=== PATIENT | male | born 1950 | race Caucasian/White ===

== ENCOUNTER 2020-01-06 12:37 | Inpatient (IN) | payer OTHER, MEDICARE ==
[2020-01-06] MEDS ORDERED: MORPHINE SULFATE 10 MG/ML INJ IV ONE (13:37)
[2020-01-06] MEDS ORDERED: ONDANSETRON HCL INJ/PF 4 MG/2 ML SDV IV ONE (13:38)
--- NOTE | 2020-01-06 13:38 | ER Document Report ---
ED Medical Screen (RME) - General Chief Complaint: Back Pain Stated Complaint: BACK PAIN Time Seen by Provider: 01/06/20 13:32 Primary Care Provider: ASHWIN FUENTES PA [Primary Care Provider] - Follow up as needed Mode of Arrival: Wheelchair Information source: Patient, Relative Notes: HPI; 69-year-old male past medical history significant for chronic back pain presents to the emergency room with worsening pain that started today. Patient states he is unable to walk secondary to the pain. States pain does radiate down his left leg. History of chronic incontinence since he injured his back 35 years ago. Took his regular pain medications approximately 2 hours ago without relief. Arrived to the emergency room via EMS. PE: Alert and oriented x3. Lungs: Clear to auscultation without rales, rhonchi, wheezes. Heart: Regular rate rhythm without murmurs, rubs, gallops. Unable to do full exam in triage. I have greeted and performed a rapid initial assessment of this patient. A comprehensive ED assessment and evaluation of the patient, analysis of test results and completion of the medical decision making process will be conducted by additional ED providers. I have specifically instructed the patient or family members with the patient to immediately return to any nursing staff should anything change in the patient's condition or with their chief complaint. TRAVEL OUTSIDE OF THE [place] IN LAST 30 DAYS: No Physical Exam - Vital signs Vitals: Temp Pulse Resp BP Pulse Ox 98.5 F 87 16 124/80 98 01/06/20 12:43 01/06/20 12:43 01/06/20 12:43 01/06/20 12:43 01/06/20 12:43 Course - Vital Signs Vital signs: Temp Pulse Resp BP Pulse Ox 98.5 F 87 16 124/80 98 01/06/20 12:43 01/06/20 12:43 01/06/20 12:43 01/06/20 12:43 01/06/20 12:43 Doctor's Discharge - Discharge Referrals: ASHWIN FUENTES PA [Primary Care Provider] - Follow up as needed
[2020-01-06 14:12] LABS: ABSOLUTE BASOPHILS # (AUTO) 0.1 10^3/uL (0.0-0.2); ABSOLUTE EOSINOPHILS # (AUTO) 0.1 10^3/uL (0.0-0.6); ABSOLUTE LYMPHOCYTES (AUTO) 1.4 10^3/uL (0.5-4.7); ABSOLUTE MONOCYTES (AUTO) 0.7 10^3/uL (0.1-1.4); ABSOLUTE NEUT (AUTO) 10.1 10^3/uL (1.7-8.2); BASOPHILS % (AUTO) 0.5 % (0-2); EOSINOPHILS % (AUTO) 0.5 % (0-6); HEMATOCRIT 51.2 % (37.9-51.0); HEMOGLOBIN 16.8 g/dL (13.5-17.0); MEAN CORPUSCULAR HEMOGLOBIN 29.7 pg (27.0-33.4); MEAN CORPUSCULAR HGB CONC 32.7 g/dL (32.0-36.0); MEAN CORPUSCULAR VOLUME 91 fl (80-97); PLATELET COUNT 246 10^3/uL (150-450); RED BLOOD COUNT 5.65 10^6/uL (4.35-5.55); RED CELL DISTRIBUTION WIDTH 16.1 % (11.5-14.0); TOTAL CELLS COUNTED % (AUTO) 100 %; WHITE BLOOD COUNT 12.3 10^3/uL (4.0-10.5)
[2020-01-06 14:41] LABS: ALBUMIN 4.6 g/dL (3.5-5.0); ALKALINE PHOSPHATASE 101 U/L (38-126); ANION GAP 15 (5-19); ASPARTATE AMINO TRANSFERASE 51 U/L (17-59); BILIRUBIN,DIRECT 0.1 mg/dL (0.0-0.4); BILIRUBIN,TOTAL 0.8 mg/dL (0.2-1.3); BLOOD UREA NITROGEN 14 mg/dL (7-20); CALCIUM 9.6 mg/dL (8.4-10.2); CARBON DIOXIDE 24 mmol/L (22-30); CHLORIDE 99 mmol/L (98-107); GLUCOSE 99 mg/dL (75-110); POTASSIUM 4.2 mmol/L (3.6-5.0); TOTAL PROTEIN 7.6 g/dL (6.3-8.2)
[2020-01-06 15:23] LABS: APPEARANCE,URINE CLEAR; BILIRUBIN,URINE NEGATIVE (NEGATIVE); COLOR,URINE YELLOW; GLUCOSE, URINE NEGATIVE (NEGATIVE); KETONES,URINE NEGATIVE (NEGATIVE); LEUKOCYTE ESTERASE,URINE NEGATIVE (NEGATIVE); NITRITE,URINE NEGATIVE (NEGATIVE); PROTEIN,URINE NEGATIVE (NEGATIVE); URINE SPECIFIC GRAVITY 1.016; UROBILINOGEN,URINE NEGATIVE mg/dL (<2.0)
[2020-01-06] MEDS ORDERED: HYDROMORPHONE HCL INJ/PF 2 MG/ML AMPULE IV ONE ×4 (15:25→22:06)
--- NOTE | 2020-01-06 15:47 | RADIOLOGY REPORT (SQ) ---
EXAM DESCRIPTION: CT LUMBAR SPINE WITHOUT IMAGES COMPLETED DATE/TIME: 01/06/2020 3:07 pm REASON FOR STUDY: back pain COMPARISON: None. TECHNIQUE: Axial images acquired through the lumbar spine without intravenous contrast. Images revi ewed with lung, soft tissue and bone windows. Reconstructed coronal and sagittal MPR images reviewed . All images stored on PACS. All CT scanners at this facility use dose modulation, iterative reconstruction, and/or weight based d osing when appropriate to reduce radiation dose to as low as reasonably achievable (ALARA). [facility]: Dose Right [facility]: CareDose [facility]: Dose Right [facility]: Teradose 4D [facility]: PlumTV RADIATION DOSE: mGy. LIMITATIONS: None. FINDINGS: Marked convex right scoliosis with a rotary component. No evidence of acute compression f racture. Multilevel spondylosis and facet arthropathy resulting in moderate spinal stenosis at multi ple levels. No high-grade central stenosis. No obvious acute disc herniation. IMPRESSION: Marked degenerative changes. No acute findings. TECHNICAL DOCUMENTATION: JOB ID: [id number] Quality ID # [id number]: Final reports with documentation of one or more dose reduction techniques (e.g., Au tomated exposure control, adjustment of the mA and/or kV according to patient size, use of iterative reconstruction technique) 2010 [employer]- All Rights Reserved Reading location - IP/workstation name: [email or web address]
[2020-01-06] MEDS: HYDROMORPHONE HCL INJ/PF 2 MG/ML AMPULE IV PRN ×3 (17:55→18:34)
[2020-01-06] MEDS ORDERED: VANCOMYCIN HCL INJ 1000 MG VIAL IV ONE (19:57)
[2020-01-06] MEDS ORDERED: CEFTRIAXONE INJ 1000 MG VIAL IV ONE (19:57)
[2020-01-06] MEDS ORDERED: RINGERS LACTATED IV PRN (19:58)
[2020-01-06] MEDS ORDERED: METRONIDAZOLE 500 MG/NS RTU 500 MG/100 ML RTUPB IV ONE (19:58)
[2020-01-06] MEDS ORDERED: KETOROLAC TROMETHAMINE INJ/PF 30 MG/1 ML SDV IV ONE (20:03)
[2020-01-06] MEDS ORDERED: KETAMINE HCL INJ 500 MG/10 ML VIAL IV ONE (21:35)
--- NOTE | 2020-01-06 21:49 | RADIOLOGY REPORT (SQ) ---
EXAM DESCRIPTION: XR HIP 2 OR MORE VIEWS COMPLETED DATE/TME: 01/06/2020 21:20 CLINICAL HISTORY: 69 years, Male, left hip pain COMPARISON: None. TECHNIQUE: AP view of the pelvis and additional view of the left hip. FINDINGS: Severe arthritic changes in the left hip. The left femoral head is flattened and sclerotic. Severe narrowing of the joint space especially superolaterally. No obvious destructive changes or soft tissue abnormalities. IMPRESSION: Severe arthritic changes in the left hip. Etiology may include congenital, degenerative and erosive arthritis.
--- NOTE | 2020-01-06 22:33 | ER Document Report ---
ED General - General Chief Complaint: Back Pain Stated Complaint: BACK PAIN Time Seen by Provider: 01/06/20 13:32 Mode of Arrival: Wheelchair Notes: 69-year-old male with history of chronic low back pain for decades presents with several days of worsening lower back pain and severe left hip pain. Patient's noticed symptoms gradually worsening over the last several days without any trauma or acute inciting factor. Patient has been ambulating but with severe pain. Patient had testosterone injection in left hip on day of presentation, pain present prior to injection. Patient had episode of urinary incontinence, denies bowel incontinence or urinary retention. Denies any numbness, weakness, drug use, fever, headache or neck pain, abdominal pain TRAVEL OUTSIDE OF THE [place] IN LAST 30 DAYS: No - Related Data Allergies/Adverse Reactions: ampicillin Allergy (Verified 01/06/20 17:44) Past Medical History - General Information source: Patient, Relative - Social History Smoking Status: Never Smoker Frequency of alcohol use: None Drug Abuse: None Family History: Reviewed & Not Pertinent Musculoskeletal Medical History: Reports Hx Arthritis Psychiatric Medical History: Reports: Hx Depression Past Surgical History: Reports: Hx Cholecystectomy, Hx Orthopedic Surgery - back, knee, and shoulder Review of Systems - Review of Systems Notes: REVIEW OF SYSTEMS: CONSTITUTIONAL : Denies fever, chills, or sweats. EENT: Denies recent cold/sinus symptoms, denies throat pain CARDIOVASCULAR: Denies chest pain, NURIA RESPIRATORY: Denies cough, denies shortness of breath. GASTROINTESTINAL: Denies abdominal pain, nausea/vomiting. GENITOURINARY: Denies difficulty urinating, painful urination. MUSCULOSKELETAL: Denies neck pain, back pain. SKIN: Denies rash or skin lesions. HEMATOLOGIC : Denies easy bruising or bleeding. LYMPHATIC: Denies swollen, enlarged glands. NEUROLOGICAL: Denies headache, denies change in gait. PSYCHIATRIC: Denies anxiety or stress or depression. Physical Exam - Vital signs Vitals: Temp Pulse Resp BP Pulse Ox 98.5 F 87 16 124/80 98 01/06/20 12:43 01/06/20 12:43 01/06/20 12:43 01/06/20 12:43 01/06/20 12:43 - Notes Notes: PHYSICAL EXAMINATION: GENERAL: Patient diaphoretic and trembling secondary to severe pain in hip and low back HEAD: Atraumatic, normocephalic. EYES: Pupils equal round and appropriate constriction, sclera anicteric, conj unctiva are normal. ENT: nares patent, moist mucous membranes. NECK/BACK: Normal range of motion, supple without lymphadenopathy, no midline spinal tenderness or deformity, no tenderness to palpation of buttocks LUNGS: Breath sounds clear to auscultation bilaterally and equal. No wheezes rales or rhonchi. HEART: Tachycardic, regular rhythm ABDOMEN: Soft, nontender, no guarding, no masses, no CVAT EXTREMITIES: Patient holding left hip in partial flexion, able to minimally range but with severe pain, DP and radial pulses 2+ bilaterally, 5/5 distal strength and and normal sensation NEUROLOGICAL: Awake, alert, conversing appropriately, moves all extremities spontaneously. PSYCH: Normal mood, normal affect. SKIN: Warm, diaphoretic, no rashes Course - Re-evaluation Re-evalutation: 01/06/20 22:53 Patient with severe pain from atraumatic lower back pain and left hip pain which is also atraumatic. Pain to "left leg" appears to actually be hip pain and this is new for patient, although he says left hip pain has been worsening for a year and is supposed to be having unknown surgery for it has been worse over the past few days. Not consistent with sciatica on my exam. Patient developed fever while in ED. Concern for possible spinal epidural abscess versus left hip septic arthritis versus occult fracture, rule out cord compression, spinal hematoma but less likely. Pain may be iatrogenic as patient had testosterone injection in that area just prior to presenting to the ED. Obtained labs with blood culture lactate and ordered T and L-spine MRI. Unable to order hip MRI as told by graphics edit technician that only able to MRI to body sections at once. Canceled hip MRI and consulted Dr. Bush for likely hip arthrocentesis. Given empiric antibiotics pending MRI. Patient required multiple doses of IV pain medication, patient tolerated these without any sedation or respiratory depression. Patient is not opioid brian and takes regular p.o. opioids for chronic low back pain. Will continue to monitor pending results of MRI. 01/06/20 22:56 No emergent findings on spinal MRI, pain still present but somewhat better controlled now. With better pain control patient's tachycardia has improved. Discussed patient with Dr. Elizalde who has accepted patient to medical floor. - Vital Signs Vital signs: Temp Pulse Resp BP Pulse Ox 101.8 F H 138 H 19 160/110 H 91 L 01/06/20 18:50 01/06/20 18:50 01/07/20 01:31 01/07/20 01:31 01/07/20 01:31 - Laboratory Result Diagrams: 01/06/20 13:45 01/06/20 13:45 Laboratory results interpreted by me: 01/06/20 01/06/20 01/06/20 13:45 13:45 13:45 WBC 12.3 H RBC 5.65 H Hct 51.2 H RDW 16.1 H Lymph % (Auto) 11.0 L Absolute Neuts (auto) 10.1 H Seg Neutrophils % 82.0 H Creatinine 1.32 H Est GFR (MDRD) Non-Af 54 L C-Reactive Protein 35.4 H - EKG Interpretation by Me Additional EKG results interpreted by me: 01/07/20 01:54 Sinus tachycardia, no significant ST elevations or depressions, no significant T wave abnormalities Discharge - Discharge Clinical Impression: Left hip pain Sepsis Qualifiers: Sepsis type: sepsis due to unspecified organism Sepsis acute organ dysfunction status: with acute organ dysfunction Severe sepsis acute organ dysfunction type: acute renal failure Acute renal failure type: unspecified Severe sepsis shock status: without septic shock Qualified Code(s): A41.9 - Sepsis, unspecified organism Back pain Qualifiers: Back pain location: low back pain Chronicity: acute Back pain laterality: midline Sciatica presence: unspecified whether sciatica present Qualified Code(s): M54.5 - Low back pain Disposition: ADMITTED INPATIENT Admitting Provider: Fide (Hospitalist) Unit Admitted: Medical Floor
--- NOTE | 2020-01-06 23:28 | RADIOLOGY REPORT (SQ) ---
EXAM DESCRIPTION: MRI THORACIC SPINE COMBO [employer]: MR THORACIC SPINE WITHOUT THEN WITH IV CONTRAST CLINICAL HISTORY: 69 years Male back pain fever; left greater than right, radiating into left leg. Worse today after injection TECHNIQUE: MR thoracic spine with and without contrast COMPARISON: None FINDINGS: Motion artifact somewhat degrades the quality of this exam. No focal subluxation. C7-T1: Right paramedian disc herniation, incompletely visualized, abutting right anterior margin of the cord. Disc desiccation and mild endplate irregularity seen at numerous levels throughout the thoracic spine. T6-T7: Small midline disc protrusion, without stenosis. T10-T11: Mild disc bulging eccentric to the right. Right facet arthropathy. Moderate right foraminal stenosis. No central or left foraminal stenosis. T12-L1: Posterior disc bulging eccentric to the left left foraminal involvement. Moderate left foraminal stenosis. No acute bone marrow edema or perivertebral soft tissue edema. No enhancing lesion. No acute cord edema or syrinx. IMPRESSION: 1. No acute findings. No epidural abscess. 2. Mild degenerative changes as described, with foraminal stenosis at several levels, but no significant central canal stenosis. Please correlate with distribution of clinical symptoms.
--- NOTE | 2020-01-06 23:46 | RADIOLOGY REPORT (SQ) ---
EXAM DESCRIPTION: MR LUMBAR SPINE WITHOUT THEN WITH IV CONTRAST COMPLETED DATE/TME: 01/06/2020 23:11 CLINICAL HISTORY: 69 years, Male, back pain and fever. Back pain radiating to the left leg. Reported remote back injury. COMPARISON: CT from earlier today TECHNIQUE: Pre and postcontrast enhanced multiplanar multiecho imaging of the lumbar spine was performed utilizing 15 mL ProHance intravenously. Images stored on PACS. LIMITATIONS: Motion artifact. FINDINGS: There is no evidence of lumbar spine fracture or subluxation. There is a moderate lumbar dextroscoliosis measuring approximately 40 degrees on this examination. No definite abnormal enhancement is seen allowing for rather extensive motion artifact. There is no bone marrow edema. There is a small amount of fluid within the leftward aspect of the L2-L3 disc space for instance on sagittal STIR image 14 and coronal T2 image 8, without associated enhancement or adjacent edema. No abnormal fluid collections are otherwise seen within the disc spaces. Conus medullaris is at the T12-L1 level and appears grossly within normal limits. There is an incidental, 8 mm cyst upper pole left kidney. There is multilevel disc desiccation. At L1-L2, there is disc space loss on the left. There is broad-based disc bulge with marginal osteophyte formation, eccentrically greater on the left. There is also mild facet arthropathy, greater on the left. There is no central spinal canal stenosis, however moderate left lateral recess stenosis and severe left neural foraminal stenosis are identified. At L2-L3, there is disc space loss on the left. Broad-based disc bulge and marginal osteophyte formation are identified, again eccentrically greater on the left. There is also moderate facet arthropathy with ligamentum flavum hypertrophy, slightly greater on the left. There is moderate spinal canal stenosis and there is bilateral lateral recess stenosis, left greater than right. Additionally, there is severe left neural foraminal stenosis. At L3-L4, there is moderate disc space narrowing. Broad-based disc bulge and marginal osteophyte formation are noted. There is also at least moderate bilateral facet arthropathy. The above produce at least moderate spinal canal stenosis and moderate to severe bilateral neural foraminal stenosis. Detailed evaluation at this level is rather limited by motion. At L4-L5, there is disc space loss on the right. Broad-based disc bulge and marginal osteophyte formation are noted, greater on the right. There is also at least moderate facet arthropathy on the right. The above produce at least moderate right lateral recess stenosis and severe right neural foraminal stenosis. There is also mild left neural foraminal stenosis. Detailed evaluation is limited by motion artifact at this level. At L5-S1, there is a broad-based disc bulge with a shallow superimposed central disc protrusion and central annular tear. There is also [id number] facet arthropathy, greater on the right. There is mild central spinal canal stenosis at this level and there is also moderate bilateral lateral recess stenosis. IMPRESSION: 1. No evidence of abscess. There is a small amount of fluid within the leftward aspect of the L2-L3 disc space, likely due to reactive degenerative disease. No compelling evidence of spondylodiscitis is seen. 2. Moderate to advanced multilevel discogenic changes and facet arthropathy with associated spinal canal stenosis and neural foraminal stenosis as detailed above. Degenerative changes are exacerbated by moderately severe lumbar scoliosis. Please see the above report for details at each level. copyright 2010 [employer]- All Rights Reserved
--- NOTE | 2020-01-07 00:35 | EKG REPORT ---
SEVERITY:- ABNORMAL ECG - ARTIFACTS SINUS TACHYCARDIA MULTIPLE ATRIAL PREMATURE COMPLEXES PROBABLE LEFT ATRIAL ABNORMALITY BORDERLINE LEFT AXIS DEVIATION BORDERLINE ST ELEVATION, INFERIOR LEADS : Confirmed by: Haley Copeland 07-Jan-2020 00:34:13
[2020-01-07] MEDS ORDERED: ACETAMINOPHEN 325 MG TABLET PO PRN (01:11)
[2020-01-07] MEDS ORDERED: HYDROMORPHONE HCL INJ/PF 2 MG/ML AMPULE IV PRN ×7 (01:11→07:09)
[2020-01-07] MEDS ORDERED: ONDANSETRON 4 MG TAB.RAPDIS PO PRN (01:11)
--- NOTE | 2020-01-07 01:46 | PDOC H&P ---
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 Per the patient and his , there is no history of trauma. Patient had joint injections at his pain management physician office approximately 1 week ago including a steroid injection which they stated helped the patient's hip pain temporarily. Patient also had a testosterone shot in the superficial left hip on day of admission though he and his state this did not coincide with worsening pain as his pain was already becoming severe. Patient's states that he had a tooth pulled a few days prior to admission but the patient has not been complaining of pain in his mouth. Potential patient seeded his joint when he became briefly bacteremic during dental procedure. MRI of the thoracic and lumbar spine did not show any acute findings. MRI of the left hip was refused to be done by radiology department until tomorrow. X-ray of the left hip did not show any acute findings, only severe chronic joint degeneration. Patient's states patient has never been evaluated for inflammatory arthritis. Serologies ordered. Patient started on vancomycin/cefepime. Dr. Bush orthopedics consulted and he will consider tapping the patient's left hip for fluid liban rrow. Patient had a fever of 101.8 in the ED but no fevers prior to admission according to . Per , patient takes oxycodone and OxyContin at home. They do not know the dosages but will try to get them to us in the morning. Past Medical History Musculoskeltal Medical History: Reports: Arthritis Psychiatric Medical History: Reports: Depression Infectious Medical History: Reports: Other Infectious History Note: History of meningitis after back surgery Past Surgical History Past Surgical History: Reports: Cholecystectomy, Orthopedic Surgery - back, knee, and shoulder Social History Information Source: Patient, Relative, Emergency Med Personnel Lives with: Family Smoking Status: Never Smoker Frequency of Alcohol Use: None Hx Recreational Drug Use: No - Advance Directive Resuscitation Status: Full Code Surrogate healthcare decision maker:: Admitting diagnosis: Septic arthritis All aspects of code status discussed with patient/POA including cardioversion, chest compressions, and intubation and the patient/POA indicated they wish to be full code MPOA is designated as: DaughterNaheed Time spent: Greater than 16 minutes Family History Family History: Reviewed & Not Pertinent Parental Family History Reviewed: Yes Children Family History Reviewed: Yes Sibling(s) Family History Reviewed.: Yes Medication/Allergy Allergies/Adverse Reactions: ampicillin Allergy (Verified 01/06/20 17:44) Review of Systems All systems: reviewed and no additional remarkable complaints except as stated - Per HPI otherwise negative Physical Exam Vital Signs: Temp Pulse Resp BP Pulse Ox 101.8 F H 138 H 20 162/106 H 90 L 01/06/20 18:50 01/06/20 18:50 01/06/20 19:46 01/06/20 19:46 01/06/20 19:46 Intake & Output 01/05/20 01/06/20 01/07/20 06:59 06:59 06:59 Intake Total 100 Balance 100 Weight 84 kg Exam: General appearance: PRESENT: no acute distress, well-developed, well-nourished, uncomfortable appearing elderly white male Head exam: PRESENT: atraumatic, normocephalic Eye exam: PRESENT: conjunctiva pink. ABSENT: scleral icterus Mouth exam: PRESENT: moist Respiratory exam: PRESENT: clear to auscultation johanna. ABSENT: rales, rhonchi, wheezes Cardiovascular exam: PRESENT: RRR. ABSENT: diastolic murmur, rubs, systolic murmur GI/Abdominal exam: PRESENT: normal bowel sounds, soft. ABSENT: distended, guarding, mass, organolmegaly, rebound, tenderness Neurological exam: PRESENT: alert, awake, oriented to person, oriented to place, oriented to time, oriented to situation Psychiatric exam: PRESENT: appropriate affect, normal mood Skin exam: PRESENT: dry, intact, warm Musculoskeletal: Severe lateral left hip tenderness with approximately 5 cm area of superficial pitting firm edema Results Laboratory Results: 01/06/20 13:45 01/06/20 13:45 01/06/20 01/06/20 01/06/20 13:45 13:45 13:45 WBC 12.3 H RBC 5.65 H Hgb 16.8 Hct 51.2 H MCV 91 MCH 29.7 MCHC 32.7 RDW 16.1 H Plt Count 246 Seg Neutrophils % 82.0 H Sodium 137.5 Potassium 4.2 Chloride 99 Carbon Dioxide 24 Anion Gap 15 BUN 14 Creatinine 1.32 H Est GFR ( Amer) > 60 Glucose 99 Lactic Acid Calcium 9.6 Total Bilirubin 0.8 AST 51 Alkaline Phosphatase 101 C-Reactive Protein 35.4 H Total Protein 7.6 Albumin 4.6 Urine Color Urine Appearance Urine pH Ur Specific [place] Urine Protein Urine Glucose (UA) Urine Ketones Urine Blood Urine Nitrite Ur Leukocyte Esterase Urine WBC (Auto) Urine RBC (Auto) 01/06/20 01/06/20 14:48 20:30 WBC RBC Hgb Hct MCV MCH MCHC RDW Plt Count Seg Neutrophils % Sodium Potassium Chloride Carbon Dioxide Anion Gap BUN Creatinine Est GFR ( Amer) Glucose Lactic Acid 2.0 Calcium Total Bilirubin AST Alkaline Phosphatase C-Reactive Protein Total Protein Albumin Urine Color YELLOW Urine Appearance CLEAR Urine pH 5.0 Ur Specific [place] 1.016 Urine Protein NEGATIVE Urine Glucose (UA) NEGATIVE Urine Ketones NEGATIVE Urine Blood NEGATIVE Urine Nitrite NEGATIVE Ur Leukocyte Esterase NEGATIVE Urine WBC (Auto) 0 Urine RBC (Auto) 1 Impressions: Lumbar Spine CT 01/06/20 13:35 IMPRESSION: Marked degenerative changes. No acute findings. Thoracic Spine MRI 01/06/20 20:25 IMPRESSION: 1. No acute findings. No epidural abscess. 2. Mild degenerative changes as described, with foraminal stenosis at several levels, but no significant central canal stenosis. Please correlate with distribution of clinical symptoms. Lumbar Spine MRI 01/06/20 20:26 IMPRESSION: 1. No evidence of abscess. There is a small amount of fluid within the leftward aspect of the L2-L3 disc space, likely due to reactive degenerative disease. No compelling evidence of spondylodiscitis is seen. 2. Moderate to advanced multilevel discogenic changes and facet arthropathy with associated spinal canal stenosis and neural foraminal stenosis as detailed above. Degenerative changes are exacerbated by moderately severe lumbar scoliosis. Please see the above report for details at each level. copyright 2011 [email or web address]- All Rights Reserved Hip X-Ray 01/06/20 20:47 IMPRESSION: Severe arthritic changes in the left hip. Etiology may include congenital, degenerative and erosive arthritis. Assessment and Plan - Diagnosis (1) Septic arthritis of hip Qualifiers: Septic arthritis organism: due to unspecified organism Laterality: left Qualified Code(s): M00.9 - Pyogenic arthritis, unspecified Is this a current diagnosis for this admission?: Yes Plan: Unclear source of infection, possibly seeding from recent dental procedure, tooth pulled MRI left hip pending MRI of thoracic and lumbar spine did not show acute findings Vancomycin/cefepime Orthopedics consulted for left hip arthrocentesis, follow-up culture Blood culture Pain management, patient has extremely high tolerance for narcotics due to chronic use PT/OT (2) Sepsis Qualifiers: Sepsis type: sepsis due to unspecified organism Sepsis acute organ dysfunction status: with acute organ dysfunction Severe sepsis acute organ dysfunction type: acute renal failure Acute renal failure type: unspecified Severe sepsis shock status: without septic shock Qualified Code(s): A41.9 - Sepsis, unspecified organism; R65.20 - Severe sepsis without septic shock; N17.9 - Acute kidney failure, unspecified Is this a current diagnosis for this admission?: Yes Plan: Due to left hip septic arthritis Antibiotics, cultures, source control with drainage IV fluids (3) ROXANA (acute kidney injury) Is this a current diagnosis for this admission?: Yes Plan: Likely due to sepsis due to infected left hip IV fluids trend BMP (4) Chronic pain syndrome Is this a current diagnosis for this admission?: Yes Plan: Takes oxycodone and OxyContin at home, patient and unsure of the dosage Follows with pain management outpatient (5) Narcotic dependency, continuous Is this a current diagnosis for this admission?: Yes (6) History of meningitis Is this a current diagnosis for this admission?: Yes Plan: 30 years ago patient developed meningitis after spine surgery, has had significant memory problems since then (7) Memory deficit Is this a current diagnosis for this admission?: Yes - Time Time Spent with patient: 35 or more minutes Medications reviewed and adjusted accordingly: Yes Anticipated Discharge Disposition: [facility] Facility Anticipated Discharge Timeframe: within 72 hours - Inpatient Certification Based on my medical assessment, after consideration of the patient's comorbidities, presenting symptoms, or acuity I expect that the services needed warrant INPATIENT care.: Yes I certify that my determination is in accordance with my understanding of Medicare's requirements for reasonable and necessary INPATIENT services [42 CFR 412.3e].: Yes Medical Necessity: Significant Comorbidiites Make Outpatient Treatment Too Risky , Need Close Monitoring Due to Risk of Patient Decompensation, Need For IV Fluids, Need for IV Antibiotics, Need for Surgery, Risk of Complication if Not Cared For in Hospital, Risk of Diagnosis Which Will Require Inpatient Eval/Care/Monitoring
[2020-01-07 01:48] LABS: HEMATOCRIT 48.3 % (37.9-51.0); HEMOGLOBIN 15.7 g/dL (13.5-17.0); MEAN CORPUSCULAR HEMOGLOBIN 29.3 pg (27.0-33.4); MEAN CORPUSCULAR HGB CONC 32.4 g/dL (32.0-36.0); MEAN CORPUSCULAR VOLUME 90 fl (80-97); PLATELET COUNT 210 10^3/uL (150-450); RED BLOOD COUNT 5.34 10^6/uL (4.35-5.55); RED CELL DISTRIBUTION WIDTH 16.6 % (11.5-14.0); WHITE BLOOD COUNT 19.6 10^3/uL (4.0-10.5)
[2020-01-07 02:11] LABS: ABSOLUTE LYMPHOCYTES (AUTO) 0.6 10^3/uL (0.5-4.7); ABSOLUTE MONOCYTES (AUTO) 0.8 10^3/uL (0.1-1.4); ABSOLUTE NEUT (AUTO) 18.2 10^3/uL (1.7-8.2); BASOPHILS % (AUTO) 0.3 % (0-2); LYMPHOCYTES % (AUTO) 2.9 % (13-45); MONOCYTES % (AUTO) 4.1 % (3-13); SEGMENTED NEUTROPHILS % (AUTO) 92.7 % (42-78); TOTAL CELLS COUNTED % (AUTO) 100 %
[2020-01-07 02:17] LABS: ABSOLUTE MONOCYTES # (MANUAL) 1.2 10^3/uL (0.1-1.4); BASOPHILS % (MANUAL) 0 % (0-2); EOSINOPHILS % (MANUAL) 0 % (0-6); LYMPHOCYTES % (MANUAL) 5 % (13-45); MONOCYTES % (MANUAL) 6 % (3-13); SEGMENTED NEUTROPHILS % (MAN) 89 % (42-78); TOTAL CELLS COUNTED 100
[2020-01-07 02:18] LABS: ANISOCYTOSIS SLIGHT
[2020-01-07 02:19] LABS: PLATELET COMMENT ADEQUATE; POIKILOCYTOSIS SLIGHT
[2020-01-07] MEDS: RINGERS SOLUTION,LACTATED 1,000 ML IV PRN ×2 (02:53→14:20)
[2020-01-07] MEDS ORDERED: CEFEPIME 2 GM/D5W RTU 2 GM/50 ML RTUPB IV ONE (05:45)
[2020-01-07] MEDS: HEPARIN SOD (PORCINE) 5,000 UNIT/ML 1 ML VIAL SUBCUT SCH ×3 (05:45→23:14)
[2020-01-07] MEDS ORDERED: CEFEPIME 2 GM/D5W RTU 2 GM/50 ML RTUPB IV SCH (06:00)
[2020-01-07 08:08] LABS: ANION GAP 14 (5-19); BLOOD UREA NITROGEN 23 mg/dL (7-20); CARBON DIOXIDE 21 mmol/L (22-30); CHLORIDE 103 mmol/L (98-107); GLUCOSE 109 mg/dL (75-110)
[2020-01-07] MEDS ORDERED: SUCCINYLCHOLINE CHLORIDE INJ 200 MG/10 ML VIAL ONE (08:09)
[2020-01-07] MEDS ORDERED: ESMOLOL HCL INJ/PF 100 MG/10 ML SDV IV ONE (08:09)
[2020-01-07] MEDS ORDERED: METOPROLOL TARTRATE PF/INJ 5 MG/5 ML SDV IV ONE (08:09)
[2020-01-07] MEDS ORDERED: KETOROLAC TROMETHAMINE 60 MG/2 ML SDV ONE (08:09)
[2020-01-07] MEDS ORDERED: VANCOMYCIN HCL INJ 1000 MG VIAL IV SCH (10:00)
[2020-01-07] MEDS: VANCOMYCIN HCL 1,000 MG in DEXTROSE 5%-WATER 250 ML IV SCH ×2 (10:21→23:14)
[2020-01-07] MEDS: DOCUSATE SODIUM 100 MG CAPSULE PO SCH ×2 (10:25→10:35)
[2020-01-07] MEDS ORDERED: FENTANYL CITRATE INJ/PF 100 MCG/2 ML AMPUL IV ONE (10:42)
[2020-01-07] MEDS ORDERED: METOPROLOL TARTRATE PF/INJ 5 MG/5 ML SDV IV PRN (10:42)
[2020-01-07] MEDS: CEFEPIME HCL 2 GM in DEXTROSE 5%-WATER 50 ML IV SCH ×2 (14:11→23:14)
--- NOTE | 2020-01-07 14:36 | PDOC CONSULTATION ---
Consultation Consult Date: 01/07/20 Provider Consulted: KORY CRESPO JR History of Present Illness Admission Date/PCP: 01/07/20 00:42 CONNOR MISTRY PA-C Patient complains of: left hip pain History of Present Illness: AUGUST CORBIN is a 69 year old male who presents with severe left hip pain, sepsis, positive blood cultures as of my consultation. He has a complicated history including prior spine surgery with associated meningitis with memory loss chronic back pain hip pain and narcotic dependency. Over the last few months he has been seeing Dr. Alvarez in [facility] for potential left hip replacement due to ongoing left hip pain. I am unsure as to whether this was a previous diagnosis of avascular necrosis or hip arthritis that is progressed to avascular necrosis on his encounter today. X-rays reviewed from his current encounter do demonstrate what appears to be collapse of the femoral head. This could be acute and in association with infection, or associated with his prior hip pain that he has had problems with her last few months and was seeking potential hip replacement. They explained that over the last week he has had progressively increased left hip pain to the point that he cannot ambulate. There is some history of injections into the left thigh but it is unclear as to whether or not these were actually intra-articular hip injections or intramuscular injections including a recent testosterone injection. Pain is described as severe, 8 out of 10, worse with any motion up to 10 out of 10, preventing him from ambulation, improved with rest and pain medication, localized to the lateral thigh and into the groin, nonradiating. Past Medical History Musculoskeltal Medical History: Reports: Arthritis Psychiatric Medical History: Reports: Depression Infectious Medical History: Reports: Other Past Surgical History Past Surgical History: Reports: Cholecystectomy, Orthopedic Surgery - back, knee, and shoulder Social History Lives with: Family Smoking Status: Never Smoker Frequency of Alcohol Use: None Hx Recreational Drug Use: No Drugs: None - Advance Directive Resuscitation Status: Full Code Family History Family History: Reviewed & Not Pertinent Parental Family History Reviewed: No Children Family History Reviewed: NA Sibling(s) Family History Reviewed.: NA Medication/Allergy Home Medications: Buspirone HCl [Buspar 10 mg Tablet] 10 mg PO BID 01/07/20 Dextromethorphan HBr/Quinidine [Nuedexta 20-10 mg Capsule] 1 cap PO DAILY 01/07/20 Duloxetine HCl [Cymbalta] 60 mg PO BID 01/07/20 Oxycodone HCl [Oxycontin] 20 mg PO Q12 01/07/20 Oxycodone HCl/Acetaminophen [Percocet 10-325 mg Tablet] 1 tab PO Q6 01/07/20 Topiramate [Topamax 25 mg Tablet] 25 mg PO Q8 01/07/20 Trazodone HCl [Desyrel 50 mg Tablet] 50 mg PO QHS 01/07/20 Zolpidem Tartrate [Ambien 5 mg Tablet] 5 mg PO QHS 01/07/20 Allergies/Adverse Reactions: ampicillin Allergy (Verified 01/06/20 17:44) Review of Systems Review of Systems: Constitutional: ABSENT: anorexia, chills, night sweats Cardiovascular: ABSENT: chest pain Respiratory: ABSENT: dyspnea Gastrointestinal: ABSENT: vomiting Genitourinary: ABSENT: dysuria Integumentary: ABSENT: rash Neurological: ABSENT: confusion, memory loss, numbness Psychiatric: ABSENT: hallucinations Hematologic/Lymphatic: ABSENT: easy bleeding Physical Exam Vital Signs: Temp Pulse Resp BP Pulse Ox 97.8 F 120 H 20 143/90 H 93 01/07/20 03:52 01/07/20 03:52 01/07/20 03:52 01/07/20 03:52 01/07/20 03:52 Intake & Output 01/06/20 01/07/20 01/08/20 06:59 06:59 06:59 Intake Total 200 2570 Output Total 110 150 Balance 90 2420 Weight 84.8 kg Physical Exam: General appearance: PRESENT: no acute distress, cooperative, well-nourished Head exam: PRESENT: atraumatic, normocephalic Eye exam: PRESENT: EOMI Ear exam: PRESENT: normal external ear exam Mouth exam: PRESENT: neck supple Neck exam: ABSENT: tracheal deviation Respiratory exam: PRESENT: symmetrical, unlabored. ABSENT: accessory muscle use, wheezes Pulses: PRESENT: normal radial pulses, normal dorsalis pedis pulse Vascular exam: PRESENT: normal capillary refill GI/Abdominal exam: ABSENT: distended, firm Extremities exam: PRESENT: full ROM of bilateral shoulders, elbows wrists, knees, hips and ankles without pain Musculoskeletal exam: PRESENT: full ROM, normal inspection of all 4 extremities aside from that noted below. Neurological exam: PRESENT: alert, awake, oriented to person, oriented to place, oriented to time Psychiatric exam: PRESENT: appropriate affect. ABSENT: agitated Focused psych exam: ABSENT: catatonic Skin exam: PRESENT: intact. ABSENT: dry All as above aside from that noted in the HPI and the following: Left lower extremity -Pulses 2+ distally -Compartments soft -Sensation grossly intact to L3-4-5 S1 -Motor grossly intact to EHL TA gastroc and quad , Patient has a flexed hip posture with severe pain to any attempted range of motion including logroll. There is no overt swelling or erythema of the left hip. There is tenderness to palpation laterally and into the anterior lateral musculature as well as into the groin. Results Laboratory Results: 01/07/20 01:30 01/07/20 06:44 01/06/20 01/06/20 01/06/20 13:45 13:45 13:45 WBC 12.3 H RBC 5.65 H Hgb 16.8 Hct 51.2 H MCV 91 MCH 29.7 MCHC 32.7 RDW 16.1 H Plt Count 246 Seg Neutrophils % 82.0 H Sodium 137.5 Potassium 4.2 Chloride 99 Carbon Dioxide 24 Anion Gap 15 BUN 14 Creatinine 1.32 H Est GFR ( Amer) > 60 Glucose 99 Lactic Acid Calcium 9.6 Total Bilirubin 0.8 AST 51 Alkaline Phosphatase 101 C-Reactive Protein 35.4 H Total Protein 7.6 Albumin 4.6 Urine Color Urine Appearance Urine pH Ur Specific [place] Urine Protein Urine Glucose (UA) Urine Ketones Urine Blood Urine Nitrite Ur Leukocyte Esterase Urine WBC (Auto) Urine RBC (Auto) 01/06/20 01/06/20 01/07/20 14:48 20:30 01:30 WBC 19.6 H RBC 5.34 Hgb 15.7 Hct 48.3 MCV 90 MCH 29.3 MCHC 32.4 RDW 16.6 H Plt Count 210 Seg Neutrophils % 92.7 H Sodium Potassium Chloride Carbon Dioxide Anion Gap BUN Creatinine Est GFR ( Amer) Glucose Lactic Acid 2.0 Calcium Total Bilirubin AST Alkaline Phosphatase C-Reactive Protein Total Protein Albumin Urine Color YELLOW Urine Appearance CLEAR Urine pH 5.0 Ur Specific [place] 1.016 Urine Protein NEGATIVE Urine Glucose (UA) NEGATIVE Urine Ketones NEGATIVE Urine Blood NEGATIVE Urine Nitrite NEGATIVE Ur Leukocyte Esterase NEGATIVE Urine WBC (Auto) 0 Urine RBC (Auto) 1 01/07/20 06:44 WBC RBC Hgb Hct MCV MCH MCHC RDW Plt Count Seg Neutrophils % Sodium 138.2 Potassium 4.0 Chloride 103 Carbon Dioxide 21 L Anion Gap 14 BUN 23 H Creatinine 1.31 H Est GFR ( Amer) > 60 Glucose 109 Lactic Acid Calcium 9.0 Total Bilirubin AST Alkaline Phosphatase C-Reactive Protein Total Protein Albumin Urine Color Urine Appearance Urine pH Ur Specific [place] Urine Protein Urine Glucose (UA) Urine Ketones Urine Blood Urine Nitrite Ur Leukocyte Esterase Urine WBC (Auto) Urine RBC (Auto) 01/06/20 20:38 Blood Blood Culture (PCR) - Final Strep Agalactiae - (Group B) Impressions: Lumbar Spine CT 01/06/20 13:35 IMPRESSION: Marked degenerative changes. No acute findings. Thoracic Spine MRI 01/06/20 20:25 IMPRESSION: 1. No acute findings. No epidural abscess. 2. Mild degenerative changes as described, with foraminal stenosis at several levels, but no significant central canal stenosis. Please correlate with distribution of clinical symptoms. Lumbar Spine MRI 01/06/20 20:26 IMPRESSION: 1. No evidence of abscess. There is a small amount of fluid within the leftward aspect of the L2-L3 disc space, likely due to reactive degenerative disease. No compelling evidence of spondylodiscitis is seen. 2. Moderate to advanced multilevel discogenic changes and facet arthropathy with associated spinal canal stenosis and neural foraminal stenosis as detailed above. Degenerative changes are exacerbated by moderately severe lumbar scoliosis. Please see the above report for details at each level. copyright 2010 [email or web address]- All Rights Reserved Hip X-Ray 01/06/20 20:47 IMPRESSION: Severe arthritic changes in the left hip. Etiology may include congenital, degenerative and erosive arthritis. Assessment & Plan - Diagnosis (1) Avascular necrosis of bone of left hip Is this a current diagnosis for this admission?: Yes Plan: On x-ray the patient has avascular necrosis of the left hip and his exam is consistent with intra-articular hip pathology. The question is whether or not this is an acute change associated with potential development of intra-articular septic arthritis. His symptoms may be consistent with an exacerbation of his avascular necrosis and have nothing to do with his septicemia. I would suggest a intra-articular aspiration to evaluate the fluid for potential septic arthritis If septic arthritis is present the patient will need an I&D I will follow the results of the aspiration. MRI of the left hip may also be beneficial Encourage out of bed and activity as tolerated Continue any potential evaluation for further source in the meantime and continue antibiotics per hospitalist care.
--- NOTE | 2020-01-07 15:35 | RADIOLOGY REPORT (SQ) ---
EXAM DESCRIPTION: INJECT/ASPIR HIP/SHLDR/KNEE; FLUORO/NEEDLE PLACEMENT IMAGES COMPLETED DATE/TIME: 01/07/2020 3:13 pm REASON FOR STUDY: LEFT HIP ASPIRATION FOR PAIN AND INFECTION COMPARISON: None. FLUOROSCOPY TIME: 14 seconds of fluoroscopy was used. 1 images saved to PACS. LIMITATIONS: None. PROCEDURE: SITE OF ASPIRATION AND INJECTION: Left hip MEDICATION TYPE AND DOSE: 4 ML Sensorcaine was instilled into the joint following aspiration. Using local anesthesia and sterile technique with fluoroscopic guidance, the needle was advanced into the joint. Loss of resistance as the entered the joint capsule confirming needle placement. 6 mL b loody purulent fluid was aspirated from the left hip joint. 4 mL Sensorcaine instilled into the join t for pain relief the needle was removed. There were no immediate complications. IMPRESSION: DIAGNOSTIC ASPIRATION OF THE LEFT HIP JOINT ABOVE. COMMENT: Patient medication list reviewed: No. Quality ID [id number]: Final reports for procedures using fluoroscopy that document radiation exposure kelvin rhona, or exposure time and number of fluorographic images (if radiation exposure indices are not avail able) TECHNICAL DOCUMENTATION: JOB ID: [id number] 2010 [employer]- All Rights Reserved Reading location - IP/workstation name: [email or web address] [id number]
--- NOTE | 2020-01-07 15:35 | RADIOLOGY REPORT (SQ) ---
EXAM DESCRIPTION: INJECT/ASPIR HIP/SHLDR/KNEE; FLUORO/NEEDLE PLACEMENT IMAGES COMPLETED DATE/TIME: 01/07/2020 3:13 pm REASON FOR STUDY: LEFT HIP ASPIRATION FOR PAIN AND INFECTION COMPARISON: None. FLUOROSCOPY TIME: 14 seconds of fluoroscopy was used. 1 images saved to PACS. LIMITATIONS: None. PROCEDURE: SITE OF ASPIRATION AND INJECTION: Left hip MEDICATION TYPE AND DOSE: 4 ML Sensorcaine was instilled into the joint following aspiration. Using local anesthesia and sterile technique with fluoroscopic guidance, the needle was advanced into the joint. Loss of resistance as the entered the joint capsule confirming needle placement. 6 mL b loody purulent fluid was aspirated from the left hip joint. 4 mL Sensorcaine instilled into the join t for pain relief the needle was removed. There were no immediate complications. IMPRESSION: DIAGNOSTIC ASPIRATION OF THE LEFT HIP JOINT ABOVE. COMMENT: Patient medication list reviewed: No. Quality ID 145: Final reports for procedures using fluoroscopy that document radiation exposure kelvin rhona, or exposure time and number of fluorographic images (if radiation exposure indices are not avail able) TECHNICAL DOCUMENTATION: JOB ID: [id number] 2010 [email or web address]- All Rights Reserved Reading location - IP/workstation name: [email or web address] [id number]
[2020-01-07] MEDS: FENTANYL CITRATE INJ/PF 100 MCG/2 ML AMPUL IV PRN ×3 (15:36→23:55)
--- OUTSIDE RECORDS SUMMARY | 2020-01-07 15:43 | XMS REPORT ---
:1950 Author Organization [facility] Address [facility] [address] [place] [address] Care Team Providers Name Role Phone FEDE TIAN Primary Care Physician Unavailable [place] Attending Clinician Unavailable Yousif MOROCHO Attending Clinician Unavailable ANAHY JONES Attending Clinician Unavailable Allergies, Adverse Reactions, Alerts Allergy Allergy Status Severity Reaction(s) Onset Inactive Treating C omments Name Type Date Date Clinician Pregabalin Propensity Active Moderate O ther to adverse 2-15 react ion(s) reactions 00:00: : Othe r 00 (See Comments )Ta rdive dyskines ia Ampicillin Propensity Active roat gets to adverse 1-30 "raw" reactions 00:00: 00 Ampicillin Ampicillin Active CAPS CAPS Medications Ordered Filled Start Stop Current Ordering Indication Dosage Frequency Signature Comments Components Medication Medication Date Date Medication? Clinician (SIG) Name Name Viagra 100 2019-02 Yes Jacques Viagra 100 MG Oral 0-07 Yousif MG Oral Tablet 10:54: Tablet 22 TAKE ONE TABLET BY MOUTH ONE HOUR BEFOREACTI VITY Quantity: 30 Refills: 0 Jacques Dodd MD Start : 01-Dec-2019 Active Viagra 100 2019- No Jacques Viagra 100 MG Oral 8-19 Yousif MG Oral Tablet 11:46: Tablet 29 TAKE ONE TABLET BY MOUTH ONE HOUR BEFORESEXU LA ACTIVITY Quantity: 30 Refills: 0 Jacques Dodd MD Start : 0Active Dexilant 60 Yes Dexilant MG Oral 3-09 60 MG Oral Capsule 00:00: Capsule Delayed 00 Delayed Release Release Quantity: 90 Refills: 0 Start : 03-May-2019 Active Vitamin D Yes Vitamin D (Ergocalcif 3-09 (Ergocalci yissel) 1.25 00:00: ferol) MG (26350 00 1.25 MG UT) Oral (15447 UT) Capsule Oral Capsule Quantity: 4 Refills: 0 Start : 03-May-2019 Active Depo-Testos No Jacques Depo-Testo terone 200 1-02 Yousif sterone MG/ML 00:00: 200 MG/ML Intramuscul 00 Intramuscu ar Solution lar Solution INJECT 1ML INTRAMUSCU LARLY EVERY 7 DAYS Quantity: 6 Refills: 0 Jacques Dodd MD Start : 25-Feb-2019 Active Depo-Testos Yes Jacques Depo-Testo terone 200 1-02 Yousif sterone MG/ML 00:00: 200 MG/ML Intramuscul 00 Intramuscu ar Solution lar Solution INJECT 1ML INTRAMUSCU LARLY EVERY 7 DAYS Quantity: 6 Refills: 0 Jacques Dodd MD Start : 25-Feb-2019 Active Testosteron 2018-02 No Jacques Testostertj e Cypionate 0-22 Yousif ne 200 MG/ML 00:00: Cypionate Intramuscul 00 200 MG/ML ar Solution Intramuscu lar Solution INJECT 1 ML EVERY 7 DAYS Quantity: 1 Refills: 0 Jacques Dodd MD Start : 9Active Testosteron 2018-02 Yes Jacques Testostero e Cypionate 0-22 Yousif ne 200 MG/ML 00:00: Cypionate Intramuscul 00 200 MG/ML ar Solution Intramuscu lar Solution INJECT 1 ML EVERY 7 DAYS Quantity: 1 Refills: 3 Yousif Jacques MOROCHO Start : 9Active traMADol-Ac 2018-02 Yes traMADol-A etaminophen 0- cetaminoph 37.5-325 MG 00:00: en Oral Tablet 00 37.5-325 MG Oral Tablet Quantity: 20 Refills: 0 Start : 24-Nov-2018 Active gabapentin 2018- No Low back 300mg Take 1 Take 1 (NEURONTIN) 10-29 1209 pain of capsule caps ule 300 MG 00:00: 00:00 over 3 (300 mg (300 mg capsule 00 :00 months total) by total) by duration mouth mouth Three (3) Three (3) times a times a day. day. ketorolac 2018- No Chronic 15mg ketorolac (TORADOL) 10-06 pain (TORADOL) injection 14:00: 13:57 syndrome injection 15 mg 00 :00 15 mg ketorolac 2019- No Chronic 15mg 15 mg, (TORADOL) 10-06 pain Intramuscu injection 14:00: 13:57 syndrome lar, Once, 15 mg 00 :00 10/06/18 at 1400, For 1 dose lidocaine Yes Neuropathy 3{patch Place 3 Place 3 (LIDODERM) 10-06 } patches on patc hes 5 % patch 00:00: the skin on the 00 once as skin once needed. as for up to needed. 30 doses for up to 30 doses Tamsulosin Yes Jacques Tamsulosin HCl - 0.4 5-20 Yousif HCl - 0.4 MG Oral 00:00: MD MG Oral Capsule 00 Capsule TAKE 1 CAPSULE BY MOUTH 30 MINUTES AFTER SUPPER Quantity: 30 Refills: 11 Jacques Dodd MD Start : 9Active doxazosin Yes 6mg Take 6 mg Take 6 mg (CARDURA) 4 3-26 by mouth. by oralia andersonh. MG tablet 13:16: 21 diphenoxyla Yes 1{tbl} Take 1 Take 1 te-atropine 3-26 tablet by tabl et by (LOMOTIL) 13:16: mouth Four mout h 2.5-0.025 21 (4) times Four ( 4) mg per a day. times a tablet day. tamsulosin Yes .4mg Take 0.4 Take 0.4 (FLOMAX) 3-26 mg by mg by 0.4 mg 13:13: mouth. mouth. capsule 08 topiramate 2019- No 50mg Take 50 mg Jules e 50 ER 3-26 07-16 by mouth mg by (TROKENDI 13:13: 00:00 Two (2) mouth T wo XR) 50 mg 08 :00 times a (2) time s Cp24 day. a day. extended release capsule metoclopram Yes 10mg Take 10 mg Ta ke 10 daysi 3-26 by mouth. mg by (REGLAN) 10 13:13: mouth. MG tablet 07 oxyCODONE-a Yes 1{tbl} Take 1 Take 1 cetaminophe 3-26 tablet by tabl et by n 13:13: mouth mouth (PERCOCET) 07 every every 5-325 mg eight (8) eight ( 8) per tablet hours as hours as needed. needed. sildenafil Yes 100mg Take 100 Take 100 (VIAGRA) 3-26 mg by mg by 100 MG 13:13: mouth. mouth. tablet 07 lidocaine 2019- No 3{patch Place 3 Place 3 (LIDODERM) 3-26 10-06 } patches on patc hes 5 % patch 13:13: 00:00 the skin. on e 07 :00 skin. bethanechol Yes 25mg Take 25 mg Ta ke 25 (URECHOLINE 3-26 by mouth. mg b y ) 25 MG 13:13: mouth. tablet 06 celecoxib Yes 200mg Take 200 Take 2 00 (CELEBREX) 3-26 mg by mg by 200 MG 13:13: mouth. mouth. capsule diclofenac Yes Apply Apply sodium 3-26 topically. topicall y (VOLTAREN) 13:13: . 1 % gel 06 famotidine Yes 40mg Take 40 mg Jules e 40 (PEPCID) 40 3-26 by mouth mg by MG tablet 13:13: Two (2) mouth T wo 06 times a (2) times day. a day. dextrometho Yes 1{capsu Take 1 Take 1 rphan-quini 3- le} capsule by cap elida dine 00:00: mouth. by mouth. (NUEDEXTA) 00 20-10 mg cap capsule DULoxetine Yes 60mg Take 60 mg Jules e 60 (CYMBALTA) 3-01 by mouth mg by 60 MG 00:00: Two (2) mouth Two capsule 00 times a (2) times day. a day. zolpidem 2018-0 Yes 5mg Take 5-10 Take 5 -10 (AMBIEN) 5 3-01 mg by mg by MG tablet 00:00: mouth. mouth. 00 PROCTOZONE- 2019-0 Yes PROCTOZONE HC 2.5 % 1-03 -HC 2.5 % rectal 00:00: rectal cream 00 cream valACYclovi 2017-02 Yes TAKE 1 TAKE 1 r (VALTREX) 2-26 TABLET 3 TABLE T 3 1000 MG 00:00: TIMES A TIMES A tablet 00 DAY DAY oxyMORphone 2017-02 Yes oxyMORphon HCl ER 20 1-01 e HCl ER MG Oral 00:00: 20 MG Oral Tablet 00 Tablet Extended Extended Release 12 Release 12 Hour Hour TAKE 1 TABLET BY MOUTH TWICE DAILY Quantity: 60 Refills: 0 Start : 25-Dec-2017 Active Promethazin Yes Promethazi e HCl - 25 4-19 ne HCl - MG Oral 00:00: 25 MG Oral Tablet 00 Tablet Quantity: 360 Refills: 0 Start : 8Active Omeprazole Yes Omeprazole 40 MG Oral 4-19 40 MG Oral Capsule 00:00: Capsule Delayed 00 Delayed Release Release Quantity: 90 Refills: 0 Start : 8Active Proctozone- Yes Proctozone HC 2.5 % 4-19 -HC 2.5 % CREA 00:00: CREA 00 Quantity: 180 Refills: 0 Start : 8Active OxyCONTIN 2016-02 Yes 1 OxyCONTIN 20 MG Oral 2-07 20 MG Oral Tablet ER 00:00: Tablet ER 12 Hour 00 12 Hour Abuse-Deter Abuse-Dete rent rrent TAKE 1 TABLET TWICE DAILY Quantity: 60 Refills: 0 Start : 30-Jan-2017 Active HYDROmorpho 2016-02 No HYDROmorph ne HCl ER 8 1-14 one HCl ER MG Oral 00:00: 8 MG Oral Tablet ER 00 Tablet ER 24 Hour 24 Hour Abuse-Deter Abuse-Dete rent rrent TAKE 1 TABLET BY MOUTH TWICE DAILY Quantity: 60 Refills: 0 Start : 7Active HYDROmorpho 2016-02 Yes HYDROmorph ne HCl ER 8 1-14 one HCl ER MG T24A 00:00: 8 MG T24A 00 TAKE 1 TABLET BY MOUTH TWICE DAILY Quantity: 60 Refills: 0 Start : 7Active HYDROmorpho 2016-02 No HYDROmorph ne HCl ER 0-16 one HCl ER 12 MG Oral 00:00: 12 MG Oral Tablet ER 00 Tablet ER 24 Hour 24 Hour Abuse-Deter Abuse-Dete rent rrent TAKE 1 TABLET BY MOUTH TWICE DAILY Quantity: 60 Refills: 0 Start : 7Active HYDROmorpho 2016-02 Yes HYDROmorph ne HCl ER 0-16 one HCl ER 12 MG T24A 00:00: 12 MG T24A 00 TAKE 1 TABLET BY MOUTH TWICE DAILY Quantity: 60 Refills: 0 Start : 7Active Trokendi XR 2016- Yes Trokendi 50 MG Oral 0-09 XR 50 MG Capsule 00:00: Oral Extended 00 Capsule Release 24 Extended Hour Release 24 Hour TAKE ONE CAPSULE IN THE MORNING & TAKE TWO CAPSULES AT BEDTIME Quantity: 90 Refills: 0 Start : 02-Dec-2016 Active OxyCONTIN Yes OxyCONTIN 30 MG Oral 9-05 30 MG Oral Tablet ER 00:00: Tablet ER 12 Hour 00 12 Hour Abuse-Deter Abuse-Dete rent rrent TAKE 1 TABLET BY MOUTH THREE TIMES DAILY Quantity: 90 Refills: 0 Start : 29-Oct-2016 Active menthol Yes APPLY 1 APPLY 1 (BENGAY 6-29 PATCH PATCH ULTRA 00:00: EVERY DAY EVERY DAY STRENGTH,ME 00 NTHOL,) 5 % PtMd oxymorphone Yes TAKE 2 TAKE 2 ER 20 mg 6-23 TABLETS BY TABLET S tablet, 00:00: MOUTH BY MOUTH crush 00 THREE THREE resistant TIMES TIMES (12 hr) DAILY DAILY NEEDED NEEDED naproxen-es Yes 1{tbl} Take 1 Take 1 omeprazole 6-13 tablet by table t by (VIMOVO) 00:00: mouth. mouth. 500-20 mg 00 TbID testosteron Yes INJECT INJECT e cypionate 5-22 0.25 ML 0.25 M L (DEPO-TESTO 00:00: (=50 MG) (=50 MG) STERONE) 00 ONCE ONCE 200 mg/mL WEEKLY AT WEEKLY AT injection [facility] DULoxetine Yes DULoxetine HCl - 30 MG 9-21 HCl - 30 Oral 00:00: MG Oral Capsule 00 Capsule Delayed Delayed Release Release Particles Particles TAKE ONE CAPSULE BY MOUTH DAILY Quantity: 30 Refills: 0 Start : 6Active Wellbutrin Yes Wellbutrin XL 150 MG 7-11 XL 150 MG Oral Tablet 00:00: Oral Extended 00 Tablet Release 24 Extended Hour Release 24 Hour TAKE TWO TABLETS BY MOUTH EVERY MORNING Quantity: 60 Refills: 0 Start : 6Active Vimovo Yes Vimovo 500-20 MG 5-09 500-20 MG Oral Tablet 00:00: Oral Delayed 00 Tablet Release Delayed Release TAKE ONE TABLET TWICE DAILY Quantity: 60 Refills: 0 Start : 03-Jul-2015 Active HYDROcodone Yes HYDROcodon -Acetaminop 1-21 e-Acetamin hen 7.5-325 00:00: ophen MG Oral 00 7.5-325 MG Tablet Oral Tablet TAKE ONE TABLET BY MOUTH EVERY 8 HOURS NEEDED FOR PAIN Quantity: 60 Refills: 0 Start : 6Active Opana ER 20 Yes Opana ER MG T12A 9-02 20 MG T12A 00:00: TAKE 1 TO 00 2 TABLETS THREE TIMES DAILY Quantity: 180 Refills: 0 Start : 26-Oct-2014 Active Venlafaxine Yes Venlafaxin HCl ER 150 7-21 e HCl ER MG Oral 00:00: 150 MG Capsule 00 Oral Extended Capsule Release 24 Extended Hour Release 24 Hour TAKE ONE CAPSULE BY MOUTH DAILY Quantity: 30 Refills: 0 Start : 5Active Omeprazole Yes Omeprazole 20 MG Oral 1-19 20 MG Oral Capsule 00:00: Capsule Delayed 00 Delayed Release Release Quantity: 180 Refills: 0 Start : 5Active PreviDent 2013-02 Yes PreviDent 5000 Dry 2-26 5000 Dry Mouth 1.1 % 00:00: Mouth 1.1 Dental Gel 00 % Dental Gel Quantity: 3 Refills: 0 Start : 4Active Suprep Yes Suprep Bowel Prep 8-27 Bowel Prep Kit 00:00: Kit 17.5-3.13-1 00 17.5-3.13- .6 GM/177ML 1.6 Oral GM/177ML Solution Oral Solution Quantity: 255 Refills: 0 Start : 4Active Ambien 5 MG Yes Jacques Ambien 5 Oral Tablet 8-14 Yousif MG Oral 00:00: MD Tablet 3 00 po qhs Refills: 0 Yousif Jacques MOROCHO Start : 4Active Venlafaxine Yes Jacques 1 QD Venlafaxin HCl - 75 MG 8-14 Yousif e HCl - 75 Oral Tablet 00:00: MD MG Oral 00 Tablet TAKE 1 TABLET DAILY. Refills: 0 Yousif , Jacques Start : 4Active Diphenoxyla Yes Jacques Q0.25D Diphenoxyl te-Atropine 10-07 Yousif ate-Atropi 2.5-0.025 00:00: ne MG Oral 00 2.5-0.025 Tablet MG Oral Tablet TAKE 1 TABLET 4 TIMES DAILY NEEDED FOR DIARRHEA. Refills: 0 Jacques Dodd MD Start : 4Active Bethanechol Yes Jacques Q0.3333D Bethanecho Chloride 50 09-29 Yousif l Chloride MG Oral 00:00: 50 MG Oral Tablet 00 Tablet TAKE 1 TABLET BY MOUTH 3 TIMES DAILY Quantity: 90 Refills: 6 Jacques Dodd MD Start : 30-Sep-2011 Active Doxazosin Yes Jacques Doxazosin Mesylate 4 07-30 Yousif Mesylate 4 MG Oral 00:00: MD MG Oral Tablet 00 Tablet take 1 and 1/2 tablets at bedtime Quantity: 45 Refills: 6 Jacques Dodd MD Start : 31-Jul-2011 Active Voltaren 1 2008-02 Yes Default Voltaren 1 % External 2-17 Urology % External Gel 00:00: Gel as 00 directed Quantity: 0 Refills: 0 Urology, Default Start : 9Active LORazepam Yes Default LORazepam 0.5 MG Oral 09-29 Urology 0.5 MG Tablet 00:00: Oral 00 Tablet as directed Quantity: 0 Refills: 0 Urology, Default Start : 29-Sep-2008 Active CeleBREX 2005- Yes Default CeleBREX 200 MG Oral - Urology 200 MG Capsule 00:00: Oral 00 Capsule 1 Two Times A Day Quantity: 0 Refills: 0 Urology, Default Start : 6Active Reglan 10 Yes Reglan 10 MG Oral MG Oral Tablet Tablet Refills: 0 Active Lidoderm 5 Yes Lidoderm 5 % External % External Patch Patch Refills: 0 Active Problems Condition Condition Condition Status Onset Resolution Last Treatin g Comments Name Details Category Date Date Treatment Clinician Date Infection Infection Condition Active 2018-05-19 of spinal of spinal 2-20 13:14:12 cord cord 00:00: stimulator stimulator 00 Episodic Episodic Condition Active 2018-05-19 mood mood 1-08 13:14:11 disorder disorder 00:00: 00 TBI TBI Condition Active 2017-022018-05-19 (traumatic (traumatic 03-03 13:14:12 brain brain 00:00: injury) injury) 00 Drug-seekin Drug-seekin Condition Active 2018-05-19 g behavior g behavior 08-27 13:14:11 00:00: 00 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 Agreed to draw testoste r one juanis telles but this does NOT mean I will be treating . I will get him to appropri a te speciali s t. 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 Overweight Overweight Condition Active 2018-05-19 (BMI (BMI 5- 13:14:12 25.0-29.9) 25.0-29.9) 00:00: 00 Thyroid Thyroid Condition Active 2018-05-19 Ove rview: activity activity 07-03 13:14:12 Last decreased decreased 00:00: Asse ssmen 00 t & Plan : Pt. was previous l y on synthroi d . Currentl y on no thyroid replacem e nt and will check thyroid panel today. Complete Complete Condition Active 2014-022018-05-19 rotator rotator 0-02 13:14:11 cuff tear cuff tear 00:00: of left of left 00 shoulder shoulder Fatigue Fatigue Condition Active 2018-05-19 Ove rview: 4-21 13:14:11 Last 00:00: Assessme n 00 t & Plan : stable Last Assessme n t & Plan : Rare, no treatmen t needed Vitamin D Vitamin D Condition Active 2018-05-19 Overview: deficiency deficiency -21 13:14:12 L ast 00:00: Assessme n 00 t & Plan : OTC vitamin d 2000 u daily Encounter Encounter Condition Inactiv 2018-05-19 Overview: for for e 3-14 13:14:11 Overvie w: screening screening 00:00: Over view: for for 00 Colonosc o malignant malignant py n ormal neoplasm of neoplasm of in 2008, colon colon repeat i n 2018 t Assessme n t & Plan : Up to date Encounter Encounter [id number] Active 2018-05-19 Overview: for for 3-14 13:14:11 Overvie w: screening screening 00:00: Over view: for for Colonosc o malignant malignant py n ormal neoplasm of neoplasm of in 2008, colon colon repeat i n 2018 Assessme n t & Plan : Up to date Right Right Condition Active 2018-05-19 shoulder shoulder 2-25 13:14:12 pain pain 00:00: 00 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 1-05 13:14:12 disorder) disorder) 00:00: 00 Hypothyroid Hypothyroid Condition Active 2018-05-19 Overview: ism ism 03-06 13:14:12 Last 00:00: Assessme n 00 t & Plan : stable Screening Screening Condition Active 2010-022018-05-19 Overview: PSA PSA 13:14:12 Last (prostate (prostate 00:00: Asse ssmen specific specific 00 t & Pl an: antigen) antigen) psa normal Anxiety Anxiety Condition Active 2010-022018-05-19 Ove rview: 03-31 13:14:11 Last 00:00: Assessme n 00 t & Plan : Well controll e d, Chronic Chronic Condition Active 2010-022018-05-19 Ove rview: back pain back pain 03-31 13:14:11 Ove rview: 00:00: Followed [address] Blanco Last Assessme n t & Plan : stable Depression Depression Condition Active 2010-022018-05-19 Overview: 03-31 13:14:11 Last 00:00: Assessme n 00 t & Plan : Well controll e d, Gastroesoph Gastroesoph Condition Active 2010-022018-05-19 Overview: ageal ageal 03-31 13:14:11 Last reflux reflux 00:00: Assessme n disease disease 00 t & Plan : without without Well esophagitis esophagitis controlle d, Hypercholes Hypercholes Condition Active 2010-022018-05-19 Overview: terolemia terolemia 03-31 13:14:12 Las t 00:00: Assessme n 00 t & Plan : Well controll e d, Hypogonadis Hypogonadis Problem Active m male m male 08-10 00:00: 00 Cauda Cauda Problem Active equina equina - syndrome syndrome 00:00: with with 00 neurogenic neurogenic bladder bladder Enlarged Enlarged Problem Active prostate prostate 1-16 without without 00:00: lower lower 00 urinary urinary tract tract symptoms symptoms (luts) (luts) Essential Essential Problem Active 2000-02 hematuria hematuria 02-28 00:00: 00 Urge Urge Problem Active incontinenc incontinenc 6-24 e of urine e of urine 00:00: 00 Dysuria Dysuria Problem Active 6 00:00: 00 Urinary Urinary Problem Active tract tract -24 infection infection 00:00: 00 Prostatitis Prostatitis Problem Active 1994-02 0-27 00:00: 00 Neurogenic Neurogenic Problem Active bladder bladder 8-17 00:00: 00 Increased Increased Problem Active urinary urinary 8-17 frequency frequency 00:00: 00 Incomplete Incomplete Problem Active emptying of emptying of bladder bladder Male Male Problem Inactiv erectile erectile e disorder of disorder of organic organic origin origin Nocturia Nocturia Problem Active Chronic Chronic Problem Active pain pain Male Male Problem Active 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 Pain Pain Problem Active syndrome, syndrome, chronic chronic Hypogonadis Hypogonadis Problem Active m m Procedures Procedure Date / Time Performed Performing Clinician Devic e PSA 2019-12-31 00:00:00 Testosterone 2019-12-31 00:00:00 CBC 2019-12-31 00:00:00 CMP(Complete Metabolic Panel) 2019-12-31 00:00:00 XR OUTSIDE FILM FOR CONTINUED 2018-09-29 16:28:55 Rhona Jonesopher CARE MRI NEURO OUTSIDE FILM FOR 2018-09-29 16:28:37 Rhona Jones Ch ristopher CONTINUED CARE CT NEURO OUTSIDE FILM FOR 2018-09-29 16:28:20 Rhona Jones Chr istopher CONTINUED CARE CT NEURO OUTSIDE FILM FOR 2018-09-29 16:28:05 Rhona Jones Chr istopher CONTINUED CARE History of Knee Arthroscopy (Therapeutic) History of Back Surgery History of Cholecystectomy History of Hernia Repair History of Shoulder Surgery Results Test Description Test Time Test Comments Text Results Atomic Results Result Comments #[id number] 2018-09-29 XR Outside Felix m For Continued Care 00:00:00 (09/29/2018 12:28 PM EDT)SpecimenNarrativePerform ed AtThese images were imported for con tinued care purposes only. They will not be interpreted and no charges will apply. UNCHCSRADPerforming OrganizationAddressCity/Stat e/ZipcodePhone NumberUNCHCSRAD #[id number] 2018-09-29 MRI N euro Outside Film For Continued Care 00:00:00 (09/29/2018 12:28 PM EDT)SpecimenNarrativePerform ed AtThese images were imported for con tinued care purposes only. They will not be interpreted and no charges will apply. UN[facility]CSRADPerforming OrganizationAddressCity/Stat e/ZipcodePhone NumberUNCHCSRAD #[id number] 2018-09-29 CT Neuro Outsi de Film For Continued Care 00:00:00 (09/29/2018 12:28 PM EDT)SpecimenNarrativePerform ed AtThese images were imported for con tinued care purposes only. They will not be interpreted and no charges will apply. UNCHCSRADPerforming OrganizationAddressCity/Stat e/ZipcodePhone NumberUNCHCSRAD #[id number] 2018-09-29 CT Neuro Outsi de Film For Continued Care 00:00:00 (09/29/2018 12:28 PM EDT)SpecimenNarrativePerform ed AtThese images were imported for con tinued care purposes only. They will not be interpreted and no charges will apply. UNCHCSRADPerforming OrganizationAddressCity/Stat e/ZipcodePhone NumberUNCHCSRAD Assessments Condition Name Status Diagnosis Date Treating Clinici an Cauda equina syndrome with neurogenic Active bladder Chronic pain Active Neurogenic bladder Active Incomplete emptying of bladder Active Nocturia Active Hypogonadism male Active Urge incontinence of urine Active Cauda equina syndrome with neurogenic Active bladder Chronic pain Active Neurogenic bladder Active Incomplete emptying of bladder Active Hypogonadism male Active Increased urinary frequency Active Hypogonadism male Active Hypogonadism male Active Hypogonadism male Active Cauda equina syndrome with neurogenic Active bladder Neurogenic bladder Active Incomplete emptying of bladder Active Hypogonadism male Active Urge incontinence of urine Active Cauda equina syndrome with neurogenic Active bladder Neurogenic bladder Active Incomplete emptying of bladder Active Nocturia Active Urge incontinence of urine Active Male erectile disorder of organic origin Active Male erectile disorder of organic origin Active 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 [id number] 10:28:47 23:59:59 Rolo 2019-12-16 2019-12-16 Appointment [facility]ET CETW [id number] 11:15:00 11:15:00 ; SITA becker, Clinical FW 2019-12-09 2019-12-09 Appointment CET CET [id number] 09:25:00 09:25:00 ; SITA becker, Clinical 2019-12-02 2019-12-02 Appointment [facility]ET[facility] CETW [id number] 10:30:00 10:30:00 ; SITA becker, Clinical WB 2019-11-25 2019-11-25 Appointment [facility] [place] CETW [id number] 14:00:00 14:00:00 ; SITA becker, Clinical 2019-11-24 2019-11-24 Outpatient Lippe, [facility] [id number] 13:03:16 23:59:59 Crimora 2019-11-18 2019-11-18 Appointment [facility]ET CETW [id number] 09:55:00 09:55:00 ; SITA becker, Clinical 2019-11-11 2019-11-11 Appointment [facility]ETW [id number] 09:10:00 09:10:00 ; SITA becker, Clinical 2019-11-03 2019-11-03 Appointment [facility]ETW [id number] 13:15:00 13:15:00 ; SITA becker, Clinical 2019-10-27 2019-10-27 Appointment [facility] CETW [id number] 11:35:00 11:35:00 ; SITA becker, Clinical 2019-10-19 2019-10-19 Appointment [facility]ET CETW [id number] 09:00:00 09:00:00 ; SITA becker, Clinical 2019-10-18 2019-10-18 Outpatient Lippe, [facility] [id number] 10:16:45 23:59:59 [place] 2019-10-11 2019-10-11 Appointment [facility]ET [facility]ETW [id number] 13:30:00 13:30:00 ; SITA becker, Clinical 2019-10-04 2019-10-04 Appointment [facility]ET CETW [id number] 11:00:00 11:00:00 ; SITA becker, Clinical 2019-09-30 2019-09-30 Appointment [facility] [id number] 11:15:00 11:15:00 ; SITA becker, Clinical 2019-09-23 2019-09-23 Appointment [facility] [id number] 14:00:00 14:00:00 ; SITA becker, Clinical 2019-09-16 2019-09-16 Appointment [facility] [id number] 11:00:00 11:00:00 ; SITA becker, Clinical 2019-09-08 2019-09-08 Appointment [facility] [id number] 11:00:00 11:00:00 ; SITA becker, Clinical 2019-09-02 2019-09-02 Appointment [facility] [id number] 11:00:00 11:00:00 ; SITA becker, Clinical 2019-08-26 2019-08-26 [facility] [facility] [id number] 11:00:00 11:00:00 ; SITA becker, Clinical 2019-08-19 2019-08-19 Appointment [facility] [id number] 11:00:00 11:00:00 ; SITA becker, Clinical 2019-08-12 2019-08-12 Appointment Yousif, [facility] [id number] 09:30:00 09:30:00 ; Jacques Harvey MD 2019-05-07 2019-05-07 Appointment [facility] [id number] 13:35:00 13:35:00 ; SITA Sinhauri rosita, Clinical 2019-05-07 2019-05-07 Appointment Yousif, [facility] [id number] 11:15:00 11:15:00 ; Jacques Harvey MD 2019-04-30 2019-04-30 Appointment [facility] [id number] 11:40:00 11:40:00 ; SITA becker, Clinical 2019-04-22 2019-04-22 Appointment [facility] [id number] 16:15:00 16:15:00 ; SITA becker, Clinical WB 2019-04-15 2019-04-15 Appointment [facility] [id number] 11:05:00 11:05:00 ; SITA becker, Clinical WB 2019-04-09 2019-04-09 Appointment [facility] [id number] 13:30:00 13:30:00 ; SITA becker, Clinical WB 2019-04-02 2019-04-02 Appointment [facility] [id number] 14:10:00 14:10:00 ; SITA becker, Lab WB 2019-03-26 2019-03-26 Appointment [facility] [id number] 12:55:00 12:55:00 ; SITA becker, Clinical WB 2019-03-05 2019-03-05 Appointment [facility] [id number] 13:50:00 13:50:00 ; SITA becker, Clinical WB 2019-02-25 2019-02-25 Appointment [facility] [id number] 15:35:00 15:35:00 ; SITA becker, Clinical WB 2019-02-18 2019-02-18 Appointment [facility] [id number] 10:30:00 10:30:00 ; SITA becker, Clinical WB 2019-02-11 2019-02-11 Appointment [facility] [id number] 14:00:00 14:00:00 ; SITA becker, Clinical WB 2019-02-04 2019-02-04 Appointment [facility] [id number] 13:30:00 13:30:00 ; SITA becker, Clinical WB 2019-02-01 2019-02-01 Outpatient [facility] [id number] 12:37:12 13:50:40 [id number] 2019-02-01 2019-02-01 [facility] [id number] 12:37:12 13:50:40 2019-02-01 2019-02-01 Outpatient [facility] [id number] 00:00:00 00:00:00 [id number] 2019-02-01 2019-02-01 Outpatient [facility] [id number] 00:00:00 00:00:00 [id number] 2019-01-27 2019-01-27 Appointment [facility] [id number] 10:25:00 10:25:00 ; SITA Sinhauri rosita, Clinical WB 2019-01-26 2019-01-26 Outpatient [facility] [id number] 00:00:00 00:00:00 [id number] 2019-01-15 2019-01-15 Appointment [facility] [id number] 15:30:00 15:30:00 ; SITA Buschkellyuri rosita, Clinical WB 2019-01-14 2019-01-14 Outpatient [facility] [id number] 00:00:00 00:00:00 [id number] 2019-01-08 2019-01-08 [facility] [id number] 13:50:00 13:50:00 ; SITA Rebolledo rosita, Clinical WB 2019-01-01 2019-01-01 Appointment [facility] [id number] 14:10:00 14:10:00 ; SITA Buschkellyuri rosita, Clinical WB 2018-12-23 2018-12-23 [facility] [id number] 15:05:00 15:05:00 ; SITA Rebolledo rosita, Clinical WB 2018-12-16 2018-12-16 [facility] [id number] 13:50:00 13:50:00 ; SITA becker, Clinical WB 2018-12-15 2018-12-15 Appointment Yousif [facility] [id number] 11:45:00 11:45:00 ; Jacques Harvey MD 2018-12-10 2018-12-10 Appointment [facility] [id number] 15:35:00 15:35:00 ; SITA becker, Clinical WB 2018-12-02 2018-12-02 [facility] [id number] 16:05:00 16:05:00 ; SITA becker, Clinical WB 2018-11-25 2018-11-25 Appointment [facility] [id number] 13:40:00 13:40:00 ; SITA becker, Clinical 2018-11-18 2018-11-18 Appointment [facility] [id number] 16:20:00 16:20:00 ; SITA becker, Clinical WB 2018-11-11 2018-11-11 Appointment [facility] [id number] 15:40:00 15:40:00 ; SITA becker, Clinical WB 2018-11-04 2018-11-04 Appointment [facility] [id number] 16:40:00 16:40:00 ; SITA becker, Clinical WB 2018-10-30 2018-10-30 [facility] [id number] 00:00:00 00:00:00 2018-10-29 2018-10-29 [facility] [id number] 09:33:23 11:34:50 2018-10-29 2018-10-29 Outpatient [facility] [id number] 09:33:23 11:34:50 [id number] 2018-10-29 2018-10-29 Outpatient [facility] [id number] 00:00:00 00:00:00 [id number] 2018-10-29 2018-10-29 Outpatient [facility] [id number] 00:00:00 00:00:00 [id number] 2018-10-29 2018-10-29 [facility] [id number] 00:00:00 00:00:00 2018-10-28 2018-10-28 Appointment [facility] [id number] 13:00:00 13:00:00 ; SITA becker, Clinical WB 2018-10-22 2018-10-22 Appointment [facility] [id number] 15:45:00 15:45:00 ; SITA becker, [facility] 2018-10-09 2018-10-09 [facility] [id number] 15:50:00 15:50:00 ; SITA Rebolledo rosita, Clinical WB 2018-10-07 2018-10-07 [facility] [id number] 00:00:00 00:00:00 2018-10-06 2018-10-06 Outpatient [facility] [id number] 13:57:19 15:42:48 [id number] 2018-10-06 2018-10-06 Outpatient [facility] [id number] 13:57:19 15:42:48 2018-10-06 2018-10-06 Outpatient [facility] [id number] 12:30:30 14:37:17 [id number] 2018-10-06 2018-10-06 Outpatient [facility] [id number] 12:30:30 14:37:17 2018-10-06 2018-10-06 Outpatient [facility] [id number] 00:00:00 00:00:00 [id number] 2018-10-02 2018-10-02 [facility] [id number] 15:50:00 15:50:00 ; SITA becker, Clinical WB 2018-09-29 2018-09-29 Out[facility] [id number] 12:27:46 23:59:00 RHONA [id number] 2018-09-29 2018-09-29 Outpatient [facility] [id number] 12:27:00 23:59:00 2018-09-29 2018-09-29 Outpatient [facility] [id number] 12:26:51 23:59:00 RHONA [id number] 2018-09-29 2018-09-29 Outpatient [facility] [id number] 12:26:00 23:59:00 2018-09-29 2018-09-29 Outpatient [facility] [id number] 12:24:33 23:59:00 RHONA [id number] 2018-09-29 2018-09-29 Outpatient [facility] [id number] 12:24:00 23:59:00 2018-09-29 2018-09-29 Outpatient [facility] [id number] 12:23:45 23:59:00 RHONA [id number] 2018-09-29 2018-09-29 Outpatient [facility] [id number] 12:23:00 23:59:00 2018-09-25 2018-09-25 [facility] [id number] 14:40:00 14:40:00 ; SITA becker, Clinical WB 2018-09-17 2018-09-17 [facility] [id number] 14:20:00 14:20:00 ; SITA becker, Clinical WB 2018-09-10 2018-09-10 [facility] [id number] 13:30:00 13:30:00 ; SITA becker, Clinical WB 2018-09-08 2018-09-08 Outpatient [facility] [id number] 11:45:13 14:05:20 [id number] 2018-09-08 2018-09-08 [facility] [id number] 11:45:13 14:05:20 2018-09-08 2018-09-08 Outpatient [facility] [id number] 00:00:00 00:00:00 [id number] 2018-09-02 2018-09-02 [facility] [id number] 16:25:00 16:25:00 ; SITA becker, Clinical WB 2018-08-26 2018-08-26 Appointment [facility] [id number] 14:35:00 14:35:00 ; SITA becker, Clinical WB 2018-08-19 2018-08-19 Appointment [facility] [id number] 16:25:00 16:25:00 ; SITA Narayansavannah becker, Clinical WB 2018-08-12 2018-08-12 Appointment [facility] [id number] 15:30:00 15:30:00 ; SITA Bharathuri rosita, Clinical WB 2018-08-03 2018-08-03 Appointment [facility] [id number] 15:50:00 15:50:00 ; SITA Sinhauri rosita, [facility] WB 2018-07-24 2018-07-24 Appointment [facility] [id number] 14:10:00 14:10:00 ; SITA Rebolledo rosita, Clinical WB 2018-07-15 2018-07-15 [facility] [id number] 15:40:00 15:40:00 ; SITA becker, Clinical WB 2018-07-08 2018-07-08 Appointment [facility] [id number] 15:10:00 15:10:00 ; SITA becker, Clinical WB 2018-07-01 2018-07-01 Appointment [facility] [id number] 14:35:00 14:35:00 ; SITA becker, Clinical WB 2018-06-24 2018-06-24 Appointment [facility] [id number] 16:15:00 16:15:00 ; SITA becker, Clinical WB 2018-06-18 2018-06-18 [id number] 14:15:00 14:15:00 ; Jacuqes Harvey MD 2018-06-17 2018-06-17 Appointment [facility] [id number] 15:55:00 15:55:00 ; SITA becker, Clinical WB 2018-06-10 2018-06-10 Appointment [facility] [id number] 15:40:00 15:40:00 ; SITA becker, Clinical WB 2018-05-27 2018-05-27 Appointment [facility] [id number] 16:15:00 16:15:00 ; SITA becker, Clinical WB 2018-05-27 2018-05-27 Outpatient [facility] [id number] 00:00:00 00:00:00 [id number] 2018-05-20 2018-05-20 Appointment [facility] [id number] 11:40:00 11:40:00 ; SITA becker, Clinical WB 2018-05-19 2018-05-19 [facility] [id number] 12:51:32 14:53:11 [id number] 2018-05-19 2018-05-19 [facility] [id number] 12:51:32 13:40:00 2018-05-19 2018-05-19 [facility] [id number] 00:00:00 00:00:00 [id number] 2018-05-19 2018-05-19 Outpatient [facility] [id number] 00:00:00 00:00:00 [id number] 2018-05-13 2018-05-13 [facility] [id number] 16:05:00 16:05:00 ; SITA becker, Clinical WB 2018-05-07 2018-05-07 [facility] [id number] 11:20:00 11:20:00 ; SITA Rebolledo e, Clinical WB 2018-05-01 2018-05-01 [facility] [id number] 16:20:00 16:20:00 ; SITA becker, Clinical WB 2018-04-23 2018-04-23 [facility] [id number] 16:25:00 16:25:00 ; SITA becker, Clinical WB 2018-04-09 2018-04-09 [facility] [id number] 16:10:00 16:10:00 ; SITA becker, Clinical WB 2018-04-02 2018-04-02 Appointment [facility] [id number] 15:50:00 15:50:00 ; SITA becker, Clinical WB 2018-03-27 2018-03-27 Appointment [facility] [id number] 13:05:00 13:05:00 ; SITA becker, Clinical WB 2018-03-18 2018-03-18 Appointment [facility] [id number] 15:10:00 15:10:00 ; SITA becker, Clinical WB 2018-03-11 2018-03-11 Appointment [facility] [id number] 13:20:00 13:20:00 ; SITA becker, Clinical WB 2018-03-04 2018-03-04 [facility] [id number] 13:25:00 13:25:00 ; SITA becker, Clinical WB 2018-02-26 2018-02-26 Appointment [facility] [id number] 16:10:00 16:10:00 ; SITA becker, Clinical WB 2018-02-18 2018-02-18 Appointment [facility] [id number] 16:05:00 16:05:00 ; SITA becker, Clinical WB 2018-02-11 2018-02-11 Appointment [facility] [id number] 15:55:00 15:55:00 ; SITA becker, Clinical WB 2018-02-04 2018-02-04 Appointment [facility] [id number] 15:55:00 15:55:00 ; SITA becker, Clinical WB 2018-01-29 2018-01-29 Appointment [facility] [id number] 15:40:00 15:40:00 ; SITA becker, Clinical WB 2018-01-21 2018-01-21 Appointment [facility] [id number] 15:55:00 15:55:00 ; SITA becker, Clinical WB 2018-01-14 2018-01-14 Appointment [facility] [id number] 15:20:00 15:20:00 ; SITA becker, Clinical WB 2018-01-08 2018-01-08 Appointment [facility] [id number] 15:50:00 15:50:00 ; SITA becker, Clinical WB 2017-12-31 2017-12-31 Appointment [facility] [id number] 16:25:00 16:25:00 ; SITA becker, Clinical WB 2017-12-24 2017-12-24 Appointment [facility] [id number] 15:40:00 15:40:00 ; SITA becker, Clinical WB 2017-12-17 2017-12-17 Appointment [facility] [id number] 16:05:00 16:05:00 ; SITA becker, Clinical WB 2017-12-10 2017-12-10 Appointment [facility] [id number] 16:15:00 16:15:00 ; SITA becker, Clinical WB 2017-12-04 2017-12-04 Marielos Dodd [facility] [id number] 11:00:00 11:00:00 ; Jacques Harvey MD 2017-12-03 2017-12-03 Appointment [facility] [id number] 16:10:00 16:10:00 ; SITA becker, Clinical WB 2017-11-26 2017-11-26 Appointment [facility] [id number] 16:25:00 16:25:00 ; SITA becker, Clinical WB 2017-11-18 2017-11-18 Appointment [facility] [id number] 15:45:00 15:45:00 ; SITA becker, Clinical WB 2017-10-31 2017-10-31 Appointment [facility] [id number] 15:50:00 15:50:00 ; SITA becker, Clinical WB 2017-10-24 2017-10-24 Appointment [facility] [id number] 13:30:00 13:30:00 ; SITA becker, Clinical WB 2017-10-17 2017-10-17 Appointment [facility] [id number] 13:50:00 13:50:00 ; SITA becker, Clinical WB Family History Family Member Diagnosis Comments Start Date Stop Date Unspecified Family history of Father Family History At Age ___ Unspecified Family history of Mother Family History At Age ___ Father Reported family history of early sudden deaths Payers Payer Name Policy Type Policy Number Effective Date Expiration D ate [employer] COMP US DEPT OF 1986 00:00: 00 LABOR MEDICARE PART A AND [id number] 1999 00:00:00 PART B [employer] ELECT CHOICE POS [id number] 2017 00:00:0 0 II 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: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 Plan of Treatment Planned Activity Planned Date Details Comments Future Scheduled Test [code = ] Future Scheduled Test [code = ] Future Scheduled Test [code = ] Future Scheduled Test [code = ] Future Scheduled Test [code = ] Future Scheduled Test [code = ] Future Scheduled Test [code = ] Future Scheduled Test [code = ] Future Scheduled Test [code = ] Future Scheduled Test [code = ] Future Scheduled Test [code = ] Future Scheduled Test [code = ] Social History Social Habit Start Date Stop Date Comments Tobacco smoking status [facility] 2019-02-01 00:00:00 2019-02-01 00:00 :00 Smoking Status Start Date Stop Date Never smoked tobacco (finding) Vital Signs Vital Name Observation Time Observation Value Comments Systolic blood pressure 2020-01-06 15:49:00 170 mm[Hg] Diastolic blood pressure 2020-01-06 15:49:00 90 mm[Hg] Heart Rate 2020-01-06 15:49:00 67 /min O2 SAT 2020-01-06 15:49:00 96 % Systolic blood pressure 2019-02-01 12:58:00 142 mm[Hg] Diastolic blood pressure 2019-02-01 12:58:00 67 mm[Hg] Heart rate 2019-02-01 12:58:00 93 /min Body temperature 2019-02-01 12:58:00 36.33 Nimco Respiratory rate 2019-02-01 12:58:00 16 /min Body height 2019-02-01 12:58:00 175.3 cm Body weight 2019-02-01 12:58:00 86.138 kg Oxygen saturation in Arterial blood by 2019-02-01 12:58:00 98 % Pulse oximetry Systolic blood pressure 2018-10-29 09:48:00 148 mm[Hg] Diastolic blood pressure 2018-10-29 09:48:00 80 mm[Hg] Heart rate 2018-10-29 09:48:00 91 /min Body temperature 2018-10-29 09:48:00 36.56 Nimco Respiratory rate 2018-10-29 09:48:00 15 /min Body height 2018-10-29 09:48:00 177.8 cm Body weight 2018-10-29 09:48:00 85.14 kg Oxygen saturation in Arterial blood by 2018-10-29 09:48:00 98 % Pulse oximetry Systolic blood pressure 2018-10-06 12:39:00 163 mm[Hg] Diastolic blood pressure 2018-10-06 12:39:00 83 mm[Hg] Heart rate 2018-10-06 12:39:00 98 /min Body height 2018-10-06 12:39:00 177.8 cm Body weight 2018-10-06 12:39:00 85.049 kg Oxygen saturation in Arterial blood by 2018-10-06 12:39:00 97 % Pulse oximetry Systolic blood pressure 2018-09-08 12:17:00 138 mm[Hg] Diastolic blood pressure 2018-09-08 12:17:00 81 mm[Hg] Heart rate 2018-09-08 12:17:00 92 /min Body temperature 2018-09-08 12:17:00 36.5 Nimco Respiratory rate 2018-09-08 12:17:00 18 /min Oxygen saturation in Arterial blood by 2018-09-08 12:17:00 98 % Pulse oximetry SYSTOLIC BLOOD PRESSURE 2018-05-19 12:58:00 153 mm[Hg] DIASTOLIC BLOOD PRESSURE 2018-05-19 12:58:00 86 mm[Hg] HEART RATE 2018-05-19 12:58:00 88 /min BODY TEMPERATURE 2018-05-19 12:58:00 36.67 [place] HEIGHT 2018-05-19 12:58:00 175.3 cm WEIGHT 2018-05-19 12:58:00 87.454 kg Hospital Discharge Instructions NameDatesDetailsInstructions not documentedNameDatesDetailsInstructions not documented
[2020-01-07 15:56] LABS: CALCIUM PYROPHOSPHATE CRYSTALS EXTRACELLULAR; MONOSODIUM URATE CRYSTALS NONE OBSERVED; OTHER CRYSTALS NONE OBSERVED
[2020-01-07 17:38] LABS: FLUID TYPE SYNOVIAL
[2020-01-07 17:39] LABS: FLUID APPEARANCE TURBID; FLUID COLOR RED; FLUID SOURCE KNEE; FLUID VISCOSITY HIGHLY VISCOUS
[2020-01-07] MEDS: ONDANSETRON HCL INJ/PF 4 MG/2 ML SDV IV PRN ×2 (19:42→23:13)
[2020-01-08] MEDS ORDERED: LOPERAMIDE HCL 2 MG CAPSULE PO ONE (00:45)
[2020-01-08] MEDS: PROMETHAZINE HCL INJ 25 MG/1 ML VIAL IV PRN ×2 (01:18→05:14)
[2020-01-08] MEDS: CEFEPIME HCL 2 GM in DEXTROSE 5%-WATER 50 ML IV SCH ×3 (05:04→21:05)
[2020-01-08] MEDS: HEPARIN SOD (PORCINE) 5,000 UNIT/ML 1 ML VIAL SUBCUT SCH ×3 (05:05→21:14)
[2020-01-08] MEDS: FENTANYL CITRATE INJ/PF 100 MCG/2 ML AMPUL IV PRN ×2 (05:05→21:15)
[2020-01-08] MEDS: RINGERS SOLUTION,LACTATED 1,000 ML IV PRN ×2 (05:06→15:35)
[2020-01-08 07:24] LABS: HEMATOCRIT 47.2 % (37.9-51.0); HEMOGLOBIN 15.7 g/dL (13.5-17.0); MEAN CORPUSCULAR HGB CONC 33.3 g/dL (32.0-36.0); MEAN CORPUSCULAR VOLUME 90 fl (80-97); PLATELET COUNT 180 10^3/uL (150-450); RED BLOOD COUNT 5.25 10^6/uL (4.35-5.55); RED CELL DISTRIBUTION WIDTH 16.9 % (11.5-14.0); WHITE BLOOD COUNT 15.8 10^3/uL (4.0-10.5)
[2020-01-08 07:49] LABS: ANION GAP 14 (5-19); BLOOD UREA NITROGEN 19 mg/dL (7-20); CARBON DIOXIDE 20 mmol/L (22-30); CHLORIDE 100 mmol/L (98-107); GLUCOSE 112 mg/dL (75-110); PHOSPHORUS 2.4 mg/dL (2.5-4.5); POTASSIUM 3.2 mmol/L (3.6-5.0)
--- NOTE | 2020-01-08 08:36 | PDOC PROGRESS REPORT ---
Subjective Date:: 01/08/20 Subjective:: Patient continues to report severe left hip pain with inability to move the hip due to pain. He has had fevers overnight and sweating. Reason For Visit: LEFT HIP PAIN,SEPTIC ARTHRITIS,SEPSIS CHRONIC PAIN Physical Exam Vital Signs: Temp Pulse Resp BP Pulse Ox 97.9 F 111 H 28 H 161/83 H 96 01/08/20 04:21 01/08/20 04:21 01/08/20 04:21 01/08/20 04:21 01/08/20 04:21 Intake & Output 01/07/20 01/08/20 01/09/20 06:59 06:59 06:59 Intake Total 200 5880 Output Total 110 150 Balance 90 5730 Weight 84.8 kg 84.8 kg Physical Exam: Patient is in pain, sweating and bedside this morning. Left lower extremity -Pulses 2+ distally -Compartments soft -Sensation grossly intact to L3-4-5 S1 -Motor grossly intact to EHL TA gastroc and quad , Patient has a flexed hip posture with severe pain to any attempted range of motion including logroll. There is no overt swelling or erythema of the left hip. There is tenderness to palpation laterally and into the anterior lateral musculature as well as into the groin. Results Laboratory Results: 01/08/20 06:23 01/07/20 01/07/20 01/08/20 14:54 14:54 06:23 Sodium 133.6 L Potassium 3.2 L Chloride 100 Carbon Dioxide 20 L Anion Gap 14 BUN 19 Creatinine 1.02 Est GFR ( Amer) > 60 Glucose 112 H Calcium 9.0 Phosphorus 2.4 L Magnesium 2.0 Fluid Type SYNOVIAL SYNOVIAL Fluid Source KNEE Fluid Color RED Fluid Appearance TURBID Fluid Viscosity HIGHLY VISCOUS Fluid WBC 00204 Fluid RBC [id number] 01/06/20 20:38 Blood Blood Culture (PCR) - Final Strep Agalactiae - (Group B) Impressions: Lumbar Spine CT 01/06/20 13:35 IMPRESSION: Marked degenerative changes. No acute findings. Thoracic Spine MRI 01/06/20 20:25 IMPRESSION: 1. No acute findings. No epidural abscess. 2. Mild degenerative changes as described, with foraminal stenosis at several levels, but no significant central canal stenosis. Please correlate with distribution of clinical symptoms. Lumbar Spine MRI 01/06/20 20:26 IMPRESSION: 1. No evidence of abscess. There is a small amount of fluid within the leftward aspect of the L2-L3 disc space, likely due to reactive degenerative disease. No compelling evidence of spondylodiscitis is seen. 2. Moderate to advanced multilevel discogenic changes and facet arthropathy with associated spinal canal stenosis and neural foraminal stenosis as detailed above. Degenerative changes are exacerbated by moderately severe lumbar scoliosis. Please see the above report for details at each level. copyright 2010 [employer]- All Rights Reserved Hip X-Ray 01/06/20 20:47 IMPRESSION: Severe arthritic changes in the left hip. Etiology may include congenital, degenerative and erosive arthritis. Guidance Fluoroscopy 01/07/20 00:00 IMPRESSION: DIAGNOSTIC ASPIRATION OF THE LEFT HIP JOINT ABOVE. Hip Aspiration/Injection 01/07/20 00:00 IMPRESSION: DIAGNOSTIC ASPIRATION OF THE LEFT HIP JOINT ABOVE. Assessment & Plan - Diagnosis (1) Avascular necrosis of bone of left hip Is this a current diagnosis for this admission?: Yes (2) Septic arthritis of hip Qualifiers: Septic arthritis organism: streptococcal Laterality: left Qualified Code(s): M00.252 - Other streptococcal arthritis, left hip Is this a current diagnosis for this admission?: Yes Plan: Patient is growing positive cultures off of the aspirate from yesterday We will need I&D today Patient is scheduled for the operating room as soon as possible Unfortunately patient has not yet received the Covid test and a rapid is pending N.p.o. Continue current antibiotic use Consider infectious disease consult Patient will likely need at least 6 weeks of antibiotics given that this is an intra-articular infection and will need PICC line as well Following surgical management the patient will be made weightbearing as tolerated. - Time Time Spent with patient: Less than 15 minutes
[2020-01-08 09:05] LABS: ABSOLUTE LYMPHOCYTES# (MANUAL) 0.8 10^3/uL (0.5-4.7); ABSOLUTE MONOCYTES # (MANUAL) 1.6 10^3/uL (0.1-1.4); ANISOCYTOSIS 1+; BASOPHILS % (MANUAL) 0 % (0-2); EOSINOPHILS % (MANUAL) 0 % (0-6); LYMPHOCYTES % (MANUAL) 5 % (13-45); MONOCYTES % (MANUAL) 10 % (3-13); POIKILOCYTOSIS 1+; SEGMENTED NEUTROPHILS % (MAN) 85 % (42-78); TOTAL CELLS COUNTED 100
[2020-01-08 09:06] LABS: PLATELET COMMENT ADEQUATE; POLYCHROMASIA 1+
[2020-01-08 09:13] LABS: C DIFFICILE GDH NEGATIVE (NEGATIVE)
[2020-01-08] MEDS ORDERED: POTASSIUM CHLORIDE 10 MEQ TABLET.ER PO ONE (09:37)
[2020-01-08] MEDS ORDERED: (PENDING PHARMACY ID) (Dextromethorphan Hbr/Quinidine [Nuedexta 20-10 Mg Capsule] 1 CAP) PO SCH ×2 (10:00)
[2020-01-08] MEDS ORDERED: FENTANYL CITRATE INJ/PF 250 MCG/5 ML AMPULE ONE (10:21)
[2020-01-08] MEDS ORDERED: ONDANSETRON HCL INJ/PF 4 MG/2 ML SDV ONE (10:21)
[2020-01-08] MEDS ORDERED: DEXAMETHASONE SOD PHOSPHATE INJ 4 MG/1 ML VIAL ONE (10:21)
[2020-01-08] MEDS ORDERED: MIDAZOLAM 2 MG/2 ML INJ ONE (10:21)
[2020-01-08] MEDS ORDERED: PROPOFOL INJ 200 MG/20 ML VIAL IV ONE (10:22)
[2020-01-08] MEDS: METOPROLOL TARTRATE 25 MG TABLET PO SCH ×2 (10:26→21:14)
[2020-01-08] MEDS: BUSPIRONE HCL 10 MG TABLET PO SCH ×2 (10:26→17:16)
[2020-01-08] MEDS: DOCUSATE SODIUM 100 MG CAPSULE PO SCH (10:26)
[2020-01-08] MEDS: VANCOMYCIN HCL 1,000 MG in DEXTROSE 5%-WATER 250 ML IV SCH ×3 (10:27→21:29)
[2020-01-08] MEDS ORDERED: VANCOMYCIN HCL INJ 1000 MG VIAL ONE (10:45)
[2020-01-08] MEDS ORDERED: LIDOCAINE 1% INJ-PF (10 MG/ML) 30 ML SDV ONE (11:22)
[2020-01-08] MEDS ORDERED: BUPIVACAINE HCL 0.25 % INJ/PF (2.5 MG/1 ML) 30 ML VIAL ONE (11:22)
[2020-01-08] MEDS ORDERED: CEFAZOLIN INJ 1 GM VIAL ONE (11:22)
--- NOTE | 2020-01-08 11:31 | RADIOLOGY REPORT (SQ) ---
EXAM DESCRIPTION: MRI LT LOWER EXTREMITY WITHOUT IMAGES COMPLETED DATE/TIME: 01/07/2020 9:54 pm REASON FOR STUDY: left hip septic arthritis COMPARISON: Recent radiographs. TECHNIQUE: Multiplanar imaging of the pelvis including both hips to include fat and fluid sensitive sequences. LIMITATIONS: None. FINDINGS: BONE MARROW: Abnormal. Marrow edema in the acetabulum and proximal femur including femora l head, neck and proximal shaft. Loss of the superior joint space with flattening of the femoral hea d. Marrow signal in the spine and pelvis and right femur otherwise normal. SOFT TISSUES: Soft tissue edema about the left ileum and hip joint. This is relatively diffuse with strandy deep none drainable fluid and mild joint effusion. Soft tissues otherwise look normal. OTHER: No other significant finding. IMPRESSION: 1. Abnormal left hemipelvis and hip. Marrow edema and deep soft tissue edema. In light of the histo ry of septic arthritis and appearance of generalized inflammatory process, this is presumed celluliti s, myositis and osteomyelitis. Please correlate with recent diagnostic hip aspiration results. Note is made of loss of the joint space and flattening of the superior femoral head. This could be relat ed to joint infection or subchondral fracture/AVN. TECHNICAL DOCUMENTATION: JOB ID: [id number] 2010 [employer]- All Rights Reserved Reading location - IP/workstation name: [email or web address]
[2020-01-08] MEDS ORDERED: HYDROMORPHONE HCL INJ/PF 2 MG/ML AMPULE ONE (11:42)
[2020-01-08] MEDS: DULOXETINE HCL 30 MG CAPSULE.DR PO SCH ×2 (11:45→17:16)
[2020-01-08] MEDS ORDERED: MEPERIDINE HCL/PF INJ 25 MG/1 ML DISP.SYRIN IV PRN (11:53)
[2020-01-08] MEDS ORDERED: DIPHENHYDRAMINE HCL 50 MG/ML VIAL IV PRN (11:53)
[2020-01-08] MEDS ORDERED: PROMETHAZINE HCL INJ 25 MG/1 ML VIAL IV PRN (11:53)
[2020-01-08] MEDS ORDERED: FENTANYL CITRATE INJ/PF 100 MCG/2 ML AMPUL IV PRN ×3 (11:53)
--- NOTE | 2020-01-08 12:41 | Operative Report ---
Operative Report DATE OF SURGERY: 01/08/20 PREOPERATIVE DIAGNOSIS: left hip tangirnaq septic arthritis POSTOPERATIVE DIAGNOSIS: left hip tangirnaq septic arthritis OPERATION: Left hip incision and debridement SURGEON: KORY CRESPO JR ANESTHESIA: GA TISSUE REMOVED OR ALTERED: cultures COMPLICATIONS: none ESTIMATED BLOOD LOSS: 50 cc PROCEDURE: The patient was brought into the operating suite laid supine on the operating table. They are on continuous antibiotics preoperatively however they were redosed 2 g Ancef in the operating room. They are placed under general anesthesia. The left lower extremity was placed in a traction boot on a traction table and distraction was performed. The left lower extremity was pr epped and draped in sterile sterile fashion and an appropriate timeout was performed A direct anterior incision was made to the hip followed by cauterizing superficial bleeders and dissection down to the fascia. The fascia was identified and incised with a sharp knife with blunt dissection over the tensor fascia in order to expose the crossing vasculature. The crossing vasculature was encountered and cauterized followed by further dissection into the underlying fascia and approaching the hip capsule. The hip capsule was exposed with a Dalal and 2 Cobra retractors. Immediately upon trying to expose the anterior column with a Dalal, overt purulence was encountered through a rupture of the anterior capsule. I cultured this followed by irrigation followed by further dissection with a Dalal and placing a Cobra over the anterior column. After this an arthrotomy was performed with Bovie and the superior capsule was tagged with a 0 PDS suture. Kingsley purulence was encountered. This was downs ctioned and irrigated with 3 L of dilute Betadine solution. After thorough irrigation I then explored the hip joint. I was able to get a good visualization of the intra-articular hip due to the appropriate distraction on the traction table. I thoroughly suctioned out the intra-articular hip and will obtained a substantial amount of fibrinous semisolid pieces of tissue. Upon thoroughly cleaning out the joint continue to perform a synovectomy. Carefully removed any synovium that I was able to encounter from the direct anterior approach. After this another 3 L of Betadine were irrigated through the hip followed by an Aricept soak that was allowed to sit for 2 minutes. This was then evacuated and a final 3 L of dilute Betadine irrigation were Pulsavac to the hip. Finally calcium sulfate beads were placed into the hip joint next with 1 g of vancomycin. Traction was removed from the left hip. I then approximated the hip capsule with a running 0 PDS. The fascia was closed with a #2 PDS Quill followed by injection of local anesthetic followed by a 2 oh barbed running Monocryl in the subcutaneous tissue and then a subcuticular running barbed 2-0 Monocryl. A sterile dressing was then placed the patient was awakened from anesthesia and transferred to PACU in stable condition.
[2020-01-08] MEDS: TOPIRAMATE 25 MG TABLET PO SCH ×2 (13:45→21:14)
[2020-01-08] MEDS ORDERED: METOPROLOL TARTRATE PF/INJ 5 MG/5 ML SDV IV ONE (15:30)
--- NOTE | 2020-01-08 16:07 | PDOC PROGRESS REPORT ---
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 Per the patient and his , there is no history of trauma. Patient had joint injections at his pain management physician office approximately 3 months ago he also he had a tooth pulled a one week prior to admission. MRI of the thoracic and lumbar spine did not show any acute findings. 01/08/2020. Patient is status post left hip I&D with significant improvement of his pain, fluid from arthrocentesis is growing group A streptococcus as well as blood culture from admission also growing group B Streptococcus agalactiae. Patient appears somnolent however easily arousable and cooperative with physical examination and answering questions appropriately, is at bedside who is also mentioning that he is doing much better since the surgery. Patient denies any fever, chills, nausea, vomiting. Reason For Visit: LEFT HIP PAIN,SEPTIC ARTHRITIS,SEPSIS CHRONIC PAIN Physical Exam Vital Signs: Temp Pulse Resp BP Pulse Ox 97.6 F 99 21 H 150/102 H 99 01/08/20 14:00 01/08/20 14:00 01/08/20 14:00 01/08/20 14:00 01/08/20 14:00 Intake & Output 01/07/20 01/08/20 01/09/20 06:59 06:59 06:59 Intake Total 200 5880 1700 Output Total 110 150 50 Balance 90 5730 1650 Weight 84.8 kg 84.8 kg General appearance: PRESENT: mild distress, well-developed, well-nourished, other - Drowsy Head exam: PRESENT: atraumatic, normocephalic Respiratory exam: PRESENT: clear to auscultation johanna. ABSENT: rales, rhonchi, wheezes Cardiovascular exam: PRESENT: RRR. ABSENT: diastolic murmur, rubs, systolic murmur GI/Abdominal exam: PRESENT: normal bowel sounds, soft. ABSENT: distended, guarding, mass, organolmegaly, rebound, tenderness Extremities exam: PRESENT: full ROM, other - Incision looks clean, no erythema or discharge.. ABSENT: calf tenderness, clubbing, pedal edema Neurological exam: PRESENT: alert, awake, oriented to person, oriented to place, oriented to time, oriented to situation, CN II-XII grossly intact. ABSENT: motor sensory deficit Results Laboratory Results: 01/08/20 06:23 01/08/20 06:23 01/07/20 01/08/20 01/08/20 14:54 06:23 06:23 WBC 15.8 H RBC 5.25 Hgb 15.7 Hct 47.2 MCV 90 MCH 30.0 MCHC 33.3 RDW 16.9 H Plt Count 180 Seg Neutrophils % Not Reportable Sodium 133.6 L Potassium 3.2 L Chloride 100 Carbon Dioxide 20 L Anion Gap 14 BUN 19 Creatinine 1.02 Est GFR ( Amer) > 60 Glucose 112 H Calcium 9.0 Phosphorus 2.4 L Magnesium 2.0 C-Reactive Protein Fluid Type SYNOVIAL Fluid Source KNEE Fluid Color RED Fluid Appearance TURBID Fluid Viscosity HIGHLY VISCOUS Fluid WBC 77255 Fluid RBC [id number] 01/08/20 06:23 WBC RBC Hgb Hct MCV MCH MCHC RDW Plt Count Seg Neutrophils % Sodium Potassium Chloride Carbon Dioxide Anion Gap BUN Creatinine Est GFR ( Amer) Glucose Calcium Phosphorus Magnesium C-Reactive Protein 398.5 H Fluid Type Fluid Source Fluid Color Fluid Appearance Fluid Viscosity Fluid WBC Fluid RBC 01/07/20 14:54 Hip - Joint Gram Stain - Final 01/06/20 20:38 Blood Blood Culture (PCR) - Final Strep Agalactiae - (Group B) Impressions: Lumbar Spine CT 01/06/20 13:35 IMPRESSION: Marked degenerative changes. No acute findings. Thoracic Spine MRI 01/06/20 20:25 IMPRESSION: 1. No acute findings. No epidural abscess. 2. Mild degenerative changes as described, with foraminal stenosis at several levels, but no significant central canal stenosis. Please correlate with distribution of clinical symptoms. Lumbar Spine MRI 01/06/20 20:26 IMPRESSION: 1. No evidence of abscess. There is a small amount of fluid within the leftward aspect of the L2-L3 disc space, likely due to reactive degenerative disease. No compelling evidence of spondylodiscitis is seen. 2. Moderate to advanced multilevel discogenic changes and facet arthropathy with associated spinal canal stenosis and neural foraminal stenosis as detailed above. Degenerative changes are exacerbated by moderately severe lumbar scoliosis. Please see the above report for details at each level. copyright 2011 [email or web address]- All Rights Reserved Hip X-Ray 01/06/20 20:47 IMPRESSION: Severe arthritic changes in the left hip. Etiology may include congenital, degenerative and erosive arthritis. Guidance Fluoroscopy 01/07/20 00:00 IMPRESSION: DIAGNOSTIC ASPIRATION OF THE LEFT HIP JOINT ABOVE. Hip Aspiration/Injection 01/07/20 00:00 IMPRESSION: DIAGNOSTIC ASPIRATION OF THE LEFT HIP JOINT ABOVE. Lower Extremity MRI 01/07/20 00:00 IMPRESSION: 1. Abnormal left hemipelvis and hip. Marrow edema and deep soft tissue edema. In light of the history of septic arthritis and appearance of generalized inflammatory process, this is presumed cellulitis, myositis and osteomyelitis. Please correlate with recent diagnostic hip aspiration results. Note is made of loss of the joint space and flattening of the superior femoral head. This could be related to joint infection or subchondral fracture/AVN. Assessment and Plan - Diagnosis (1) Septic arthritis due to Streptococcus species Qualifiers: Septic arthritis location: hip Laterality: left Qualified Code(s): M00.252 - Other streptococcal arthritis, left hip Is this a current diagnosis for this admission?: Yes Plan: Most likely source oral cavity. Patient had a tooth pulled about a week prior to presentation. Status post left hip arthrocentesis and I&D by orthopedic surgery. Blood culture positive for Streptococcus agalactiae. Joint fluid positive for group B streptococcus pending sensitivity. Continue broad-spectrum empiric antibiotics. Follow-up sensitivity. Narrow spectrum once sensitivity is available. ID consulted for antibiotic choice and duration. (2) Gram-positive bacteremia Is this a current diagnosis for this admission?: Yes Plan: Blood culture positive for Streptococcus agalactiae. Likely source oral cavity. Patient had a tooth removed a week prior to presentation. Continue broad-spectrum IV antibiotics. Repeat blood culture. Follow-up sensitivities. (3) ROXANA (acute kidney injury) Is this a current diagnosis for this admission?: Yes Plan: Resolved. Prerenal most likely due to sepsis due to infected left hip Continue cautious volume resuscitation guided by volume status. Avoid nephrotoxic meds. Monitor volume status and electrolytes and replace as needed. (4) Avascular necrosis of bone of left hip Is this a current diagnosis for this admission?: Yes Plan: Likely chronic. As per patient has been having chronic problem for the last several years. Denies any trauma, sickle cell anemia, chronic steroid intake or any rheumatological disorder. Patient may need joint replacement once infection is under control. Orthopedic surgery on board. Recommendations noted. Symptomatic management. (5) Narcotic dependency, continuous Is this a current diagnosis for this admission?: Yes Plan: Due to chronic musculoskeletal pain. Resume home meds. Monitor for respiratory depression. Outpatient PCP and pain management follow-up. (6) Sepsis Qualifiers: Sepsis type: sepsis due to unspecified organism Sepsis acute organ dysfunction status: with acute organ dysfunction Severe sepsis acute organ dysfunction type: acute renal failure Acute renal failure type: unspecified Severe sepsis shock status: without septic shock Qualified Code(s): A41.9 - Sepsis, unspecified organism; R65.20 - Severe sepsis without septic shock; N17.9 - Acute kidney failure, unspecified Is this a current diagnosis for this admission?: Yes Plan: Most likely due to bacteremia and septic arthritis. Resolved. Afebrile. WBC trending down. Cultures positive for group B strep and a strep collected. Plan as per above. - Time Time Spent with patient: 35 or more minutes Medications reviewed and adjusted accordingly: Yes Anticipated Discharge Disposition: Home with Home Health Anticipated Discharge Timeframe: within 72 hours
[2020-01-08] MEDS: TRAZODONE HCL 50 MG TABLET PO SCH (21:14)
[2020-01-08 21:58] LABS: VANCOMYCIN,TROUGH 8.2 ug/mL (5.0-20.0)
[2020-01-09] MEDS: PROMETHAZINE HCL INJ 25 MG/1 ML VIAL IV PRN ×3 (00:17→22:02)
[2020-01-09] MEDS ORDERED: OXYCODONE-ACETAMINOPHEN 5-325 MG TABLET PO ONE (00:30)
[2020-01-09] MEDS: FENTANYL CITRATE INJ/PF 100 MCG/2 ML AMPUL IV PRN (03:15)
[2020-01-09] MEDS: RINGERS SOLUTION,LACTATED 1,000 ML IV PRN (03:21)
[2020-01-09 04:49] LABS: HEMATOCRIT 44.2 % (37.9-51.0); HEMOGLOBIN 14.9 g/dL (13.5-17.0); MEAN CORPUSCULAR HGB CONC 33.7 g/dL (32.0-36.0); MEAN CORPUSCULAR VOLUME 89 fl (80-97); PLATELET COUNT 181 10^3/uL (150-450); RED BLOOD COUNT 4.96 10^6/uL (4.35-5.55); WHITE BLOOD COUNT 15.9 10^3/uL (4.0-10.5)
[2020-01-09] MEDS ORDERED: OXYCODONE-ACETAMINOPHEN 5-325 MG TABLET PO PRN (04:49)
[2020-01-09 05:03] LABS: ANION GAP 14 (5-19); BLOOD UREA NITROGEN 19 mg/dL (7-20); CALCIUM 9.3 mg/dL (8.4-10.2); CARBON DIOXIDE 21 mmol/L (22-30); CHLORIDE 96 mmol/L (98-107); GLUCOSE 98 mg/dL (75-110); POTASSIUM 3.2 mmol/L (3.6-5.0)
[2020-01-09 05:40] LABS: ABSOLUTE LYMPHOCYTES# (MANUAL) 0.5 10^3/uL (0.5-4.7); ABSOLUTE MONOCYTES # (MANUAL) 0.8 10^3/uL (0.1-1.4); BASOPHILS % (MANUAL) 0 % (0-2); EOSINOPHILS % (MANUAL) 0 % (0-6); LYMPHOCYTES % (MANUAL) 3 % (13-45); MONOCYTES % (MANUAL) 5 % (3-13); PLATELET COMMENT ADEQUATE; SEGMENTED NEUTROPHILS % (MAN) 92 % (42-78); TOTAL CELLS COUNTED 100
[2020-01-09 05:41] LABS: ANISOCYTOSIS 1+
[2020-01-09 05:42] LABS: OVALOCYTES SLIGHT
[2020-01-09 05:44] LABS: POLYCHROMASIA SLIGHT
[2020-01-09 05:45] LABS: POIKILOCYTOSIS SLIGHT
[2020-01-09] MEDS: CEFEPIME HCL 2 GM in DEXTROSE 5%-WATER 50 ML IV SCH ×3 (06:40→21:55)
[2020-01-09] MEDS ORDERED: NIFEDIPINE 30 MG TAB.ER.24 PO ONE (06:43)
[2020-01-09] MEDS: TOPIRAMATE 25 MG TABLET PO SCH ×3 (06:43→21:54)
[2020-01-09] MEDS: HEPARIN SOD (PORCINE) 5,000 UNIT/ML 1 ML VIAL SUBCUT SCH ×3 (06:44→21:54)
[2020-01-09] MEDS ORDERED: POTASSIUM CHLORIDE 10 MEQ TABLET.ER PO ONE (07:19)
[2020-01-09] MEDS ORDERED: FENTANYL CITRATE INJ/PF 100 MCG/2 ML AMPUL IV PRN (07:22)
--- NOTE | 2020-01-09 07:33 | PDOC PROGRESS REPORT ---
Subjective Date:: 01/09/20 Subjective:: Patient seen and examined this morning. No acute events overnight. Reports yossi e nausea overnight. Pain present but controlled on current pain medication. Nursing staff says that he has apparently improved however he continues to have significant hypertension. Reason For Visit: LEFT HIP PAIN,SEPTIC ARTHRITIS,SEPSIS CHRONIC PAIN Physical Exam Vital Signs: Temp Pulse Resp BP Pulse Ox 97.7 F 110 H 18 186/110 H 99 01/09/20 04:40 01/09/20 04:40 01/09/20 04:40 01/09/20 04:40 01/09/20 04:40 Intake & Output 01/08/20 01/09/20 01/10/20 06:59 06:59 06:59 Intake Total 5880 3586 Output Total 150 1250 Balance 5730 2336 Weight 84.8 kg 84.8 kg Physical Exam: No acute distress, alert and oriented x3 Left lower extremity -Pulses 2+ distally -Compartments soft -Sensation grossly intact to L3-4-5 S1 -Motor grossly intact to EHL TA gastroc and quad Dressing clean dry and intact Improved ability to perform logroll without pain. Results Laboratory Results: 01/09/20 03:42 01/09/20 03:42 01/08/20 01/08/20 01/08/20 06:23 06:23 06:23 WBC 15.8 H RBC 5.25 Hgb 15.7 Hct 47.2 MCV 90 MCH 30.0 MCHC 33.3 RDW 16.9 H Plt Count 180 Seg Neutrophils % Not Reportable Sodium 133.6 L Potassium 3.2 L Chloride 100 Carbon Dioxide 20 L Anion Gap 14 BUN 19 Creatinine 1.02 Est GFR ( Amer) > 60 Glucose 112 H Calcium 9.0 Phosphorus 2.4 L Magnesium 2.0 C-Reactive Protein 398.5 H 01/08/20 01/09/20 01/09/20 21:25 03:42 03:42 WBC 15.9 H RBC 4.96 Hgb 14.9 Hct 44.2 MCV 89 MCH 30.0 MCHC 33.7 RDW 17.0 H Plt Count 181 Seg Neutrophils % Not Reportable Sodium 131.2 L Potassium 3.2 L Chloride 96 L Carbon Dioxide 21 L Anion Gap 14 BUN 19 Creatinine 0.94 0.82 Est GFR ( Amer) > 60 > 60 Glucose 98 Calcium 9.3 Phosphorus Magnesium C-Reactive Protein 01/07/20 14:54 Hip - Joint Gram Stain - Final 01/06/20 20:38 Blood Blood Culture (PCR) - Final Strep Agalactiae - (Group B) Impressions: Lumbar Spine CT 01/06/20 13:35 IMPRESSION: Marked degenerative changes. No acute findings. Thoracic Spine MRI 01/06/20 20:25 IMPRESSION: 1. No acute findings. No epidural abscess. 2. Mild degenerative changes as described, with foraminal stenosis at several levels, but no significant central canal stenosis. Please correlate with distribution of clinical symptoms. Lumbar Spine MRI 01/06/20 20:26 IMPRESSION: 1. No evidence of abscess. There is a small amount of fluid within the leftward aspect of the L2-L3 disc space, likely due to reactive degenerative disease. No compelling evidence of spondylodiscitis is seen. 2. Moderate to advanced multilevel discogenic changes and facet arthropathy with associated spinal canal stenosis and neural foraminal stenosis as detailed above. Degenerative changes are exacerbated by moderately severe lumbar scoliosis. Please see the above report for details at each level. copyright 2011 [employer]- All Rights Reserved Hip X-Ray 01/06/20 20:47 IMPRESSION: Severe arthritic changes in the left hip. Etiology may include congenital, degenerative and erosive arthritis. Guidance Fluoroscopy 01/07/20 00:00 IMPRESSION: DIAGNOSTIC ASPIRATION OF THE LEFT HIP JOINT ABOVE. Hip Aspiration/Injection 01/07/20 00:00 IMPRESSION: DIAGNOSTIC ASPIRATION OF THE LEFT HIP JOINT ABOVE. Lower Extremity MRI 01/07/20 00:00 IMPRESSION: 1. Abnormal left hemipelvis and hip. Marrow edema and deep soft tissue edema. In light of the history of septic arthritis and appearance of generalized inflammatory process, this is presumed cellulitis, myositis and osteomyelitis. Please correlate with recent diagnostic hip aspiration results. Note is made of loss of the joint space and flattening of the superior femoral head. This could be related to joint infection or subchondral fracture/AVN. Assessment & Plan - Diagnosis (1) Avascular necrosis of bone of left hip Is this a current diagnosis for this admission?: Yes (2) Septic arthritis of hip Qualifiers: Septic arthritis organism: streptococcal Laterality: left Qualified Code(s): M00.252 - Other streptococcal arthritis, left hip Is this a current diagnosis for this admission?: Yes Plan: Continue current antibiotics Consider infectious disease consult Patient will need at least 6 weeks of IV antibiotics likely with a PICC line pending sensitivity Weightbearing as tolerated Leave dressing in place unless saturated Follow-up in my office in approximately 10 days. Will defer DVT prophylaxis to medicine team. - Time Time Spent with patient: Less than 15 minutes
[2020-01-09] MEDS: ONDANSETRON HCL INJ/PF 4 MG/2 ML SDV IV PRN (08:33)
--- NOTE | 2020-01-09 09:37 | RADIOLOGY REPORT (SQ) ---
EXAM DESCRIPTION: HIP LEFT AP/LATERAL IMAGES COMPLETED DATE/TIME: 01/09/2020 9:17 am REASON FOR STUDY: post op COMPARISON: None. NUMBER OF VIEWS: AP view left hip TECHNIQUE: AP view left hip LIMITATIONS: None. FINDINGS: Patient is postop joint exploration and antibiotic bead placement. Faint radiodensities o lc the left femoral neck from antibiotic beads. Postoperative soft tissue gas over the left greater trochanter upper thigh Advanced [id number] osteoarthritis left hip with sclerosis of the acetabulum femoral head. Findings discussed with Dr. Bush IMPRESSION: Expected postoperative changes left hip TECHNICAL DOCUMENTATION: JOB ID: [id number] 2010 [employer]- All Rights Reserved Reading location - IP/workstation name: [email or web address]
[2020-01-09] MEDS: VANCOMYCIN HCL 1,000 MG in DEXTROSE 5%-WATER 250 ML IV SCH (11:04)
[2020-01-09] MEDS: OXYCODONE HCL SR 10 MG TABLET PO SCH ×2 (11:31→21:54)
[2020-01-09] MEDS: CARVEDILOL 12.5 MG TABLET PO SCH (11:34)
[2020-01-09] MEDS: DULOXETINE HCL 30 MG CAPSULE.DR PO SCH ×2 (11:34→18:49)
[2020-01-09] MEDS: BUSPIRONE HCL 10 MG TABLET PO SCH ×2 (11:34→18:49)
[2020-01-09] MEDS: DOCUSATE SODIUM 100 MG CAPSULE PO SCH (11:34)
[2020-01-09] MEDS ORDERED: (PENDING PHARMACY ID) (Oxycodone Hcl/Acetaminophen [Percocet 10-325 Mg Tablet] 1 TAB) PO SCH (12:00)
--- NOTE | 2020-01-09 13:43 | PDOC PROGRESS REPORT ---
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 Per the patient and his , there is no history of trauma. Patient had joint injections at his pain management physician office approximately 3 months ago he also he had a tooth pulled a one week prior to admission. MRI of the thoracic and lumbar spine did not show any acute findings. 01/08/2020. Patient is status post left hip I&D with significant improvement of his pain, fluid from arthrocentesis is growing group A streptococcus as well as blood culture from admission also growing group B Streptococcus agalactiae. Patient appears somnolent however easily arousable and cooperative with physical examination and answering questions appropriately, is at bedside who is also mentioning that he is doing much better since the surgery. Patient denies any fever, chills, nausea, vomiting. 01/09/2020. No acute events overnight. Patient reporting improvement of left hip pain, patient appears somnolent likely due to opiates, does not appear to be in apparent distress, denies any fever, chills, nausea, vomiting. Accompanied by his daughter. Reason For Visit: LEFT HIP PAIN,SEPTIC ARTHRITIS,SEPSIS CHRONIC PAIN Physical Exam Vital Signs: Temp Pulse Resp BP Pulse Ox 98.3 F 108 H 24 H 190/110 H 97 01/09/20 08:00 01/09/20 08:00 01/09/20 08:00 01/09/20 08:00 01/09/20 08:00 Intake & Output 01/08/20 01/09/20 01/10/20 06:59 06:59 06:59 Intake Total 5880 4586 Output Total 150 1250 Balance 5730 3336 Weight 84.8 kg 84.8 kg General appearance: PRESENT: no acute distress, well-developed, well-nourished, other - Somnolent and groggy, easily arousable, answers questions appropriately. Head exam: PRESENT: atraumatic, normocephalic Respiratory exam: PRESENT: clear to auscultation johanna. ABSENT: rales, rhonchi, wheezes GI/Abdominal exam: PRESENT: normal bowel sounds, soft. ABSENT: distended, guarding, mass, organolmegaly, rebound, tenderness Extremities exam: PRESENT: full ROM, other - Left hip wound looks clean, no discharge or tenderness.. ABSENT: calf tenderness, clubbing, pedal edema Neurological exam: PRESENT: alert, awake, oriented to person, oriented to place, oriented to time, oriented to situation, CN II-XII grossly intact. ABSENT: motor sensory deficit Results Laboratory Results: 01/09/20 03:42 01/09/20 03:42 01/08/20 01/08/20 01/09/20 06:23 21:25 03:42 WBC 15.9 H RBC 4.96 Hgb 14.9 Hct 44.2 MCV 89 MCH 30.0 MCHC 33.7 RDW 17.0 H Plt Count 181 Seg Neutrophils % Not Reportable Sodium Potassium Chloride Carbon Dioxide Anion Gap BUN Creatinine 0.94 Est GFR ( Amer) > 60 Glucose Calcium C-Reactive Protein 398.5 H 01/09/20 03:42 WBC RBC Hgb Hct MCV MCH MCHC RDW Plt Count Seg Neutrophils % Sodium 131.2 L Potassium 3.2 L Chloride 96 L Carbon Dioxide 21 L Anion Gap 14 BUN 19 Creatinine 0.82 Est GFR ( Amer) > 60 Glucose 98 Calcium 9.3 C-Reactive Protein 01/06/20 20:38 Blood Blood Culture (PCR) - Final Strep Agalactiae - (Group B) 01/06/20 20:38 Blood Blood Culture - Final Group B Beta Streptococcus 01/07/20 14:54 Hip - Joint Gram Stain - Final 01/07/20 14:54 Hip - Joint Body Fluid Culture - Final Group B Beta Streptococcus No Anaerobic Organisms 01/06/20 20:30 Blood Blood Culture (PCR) - Final Strep Agalactiae - (Group B) 01/06/20 20:30 Blood Blood Culture - Final Group B Beta Streptococcus Impressions: Lumbar Spine CT 01/06/20 13:35 IMPRESSION: Marked degenerative changes. No acute findings. Thoracic Spine MRI 01/06/20 20:25 IMPRESSION: 1. No acute findings. No epidural abscess. 2. Mild degenerative changes as described, with foraminal stenosis at several levels, but no significant central canal stenosis. Please correlate with distribution of clinical symptoms. Lumbar Spine MRI 01/06/20 20:26 IMPRESSION: 1. No evidence of abscess. There is a small amount of fluid within the leftward aspect of the L2-L3 disc space, likely due to reactive degenerative disease. No compelling evidence of spondylodiscitis is seen. 2. Moderate to advanced multilevel discogenic changes and facet arthropathy with associated spinal canal stenosis and neural foraminal stenosis as detailed above. Degenerative changes are exacerbated by moderately severe lumbar scoliosis. Please see the above report for details at each level. copyright 2010 [employer]- All Rights Reserved Guidance Fluoroscopy 01/07/20 00:00 IMPRESSION: DIAGNOSTIC ASPIRATION OF THE LEFT HIP JOINT ABOVE. Hip Aspiration/Injection 01/07/20 00:00 IMPRESSION: DIAGNOSTIC ASPIRATION OF THE LEFT HIP JOINT ABOVE. Lower Extremity MRI 01/07/20 00: IMPRESSION: 1. Abnormal left hemipelvis and hip. Marrow edema and deep soft tissue edema. In light of the history of septic arthritis and appearance of generalized inflammatory process, this is presumed cellulitis, myositis and osteomyelitis. Please correlate with recent diagnostic hip aspiration results. Note is made of loss of the joint space and flattening of the superior femoral head. This could be related to joint infection or subchondral fracture/AVN. Hip X-Ray 01/09/20 00:00 IMPRESSION: Expected postoperative changes left hip Assessment and Plan - Diagnosis (1) Septic arthritis due to Streptococcus species Qualifiers: Septic arthritis location: hip Laterality: left Qualified Code(s): M00.252 - Other streptococcal arthritis, left hip Is this a current diagnosis for this admission?: Yes Plan: Most likely source oral cavity. Patient had a tooth pulled about a week prior to presentation. Status post left hip arthrocentesis and I&D by orthopedic surgery. Blood culture and joint fluid positive for Streptococcus agalactiae. Day 3 IV antibiotics. Day 3 IV cefepime. Received 3 days of IV vancomycin. Continue broad-spectrum empiric antibiotics. Patient may need prolonged IV antibiotics. ID consulted for antibiotic choice and duration. (2) Hypertension Is this a current diagnosis for this admission?: Yes Plan: No history of hypertension however patient noted to be hypertensive and tachycardic on this admission. SPO2 WNL, afebrile, denies any chest pain. Not sure if this is related to his anxiety and pain. Continue Coreg 12.5 mg p.o. twice daily. Amlodipine 2.5 mg p.o. daily. As needed IV metoprolol. Monitor vitals. Adjust meds as needed. (3) Gram-positive bacteremia Is this a current diagnosis for this admission?: Yes Plan: Blood culture positive for Streptococcus agalactiae. Likely source oral cavity. Patient had a tooth removed a week prior to presentation. Continue broad-spectrum IV antibiotics. Repeat blood culture. Follow-up sensitivities. (4) ROXANA (acute kidney injury) Is this a current diagnosis for this admission?: Yes Plan: Resolved. Prerenal most likely due to sepsis due to infected left hip Continue cautious volume resuscitation guided by volume status. Avoid nephrotoxic meds. Monitor volume status and electrolytes and replace as needed. (5) Avascular necrosis of bone of left hip Is this a current diagnosis for this admission?: Yes Plan: Likely chronic. As per patient has been having chronic problem for the last several years. Denies any trauma, sickle cell anemia, chronic steroid intake or any rheuma tological disorder. Patient may need joint replacement once infection is under control. Orthopedic surgery on board. Recommendations noted. Symptomatic management. (6) Narcotic dependency, continuous Is this a current diagnosis for this admission?: Yes Plan: Due to chronic musculoskeletal pain. Has very high tolerance due to chronic opioid dependency. Noted to be drowsy and groggy at times. SPO2 WNL. Monitor for respiratory depression. Taper opioids as possible. Outpatient PCP and pain management follow-up. (7) Sepsis Qualifiers: Sepsis type: sepsis due to unspecified organism Sepsis acute organ dysfunction status: with acute organ dysfunction Severe sepsis acute organ dysfunction type: acute renal failure Acute renal failure type: unspecified Severe sepsis shock status: without septic shock Qualified Code(s): A41.9 - Sepsis, unspecified organism; R65.20 - Severe sepsis without septic shock; N17.9 - Acute kidney failure, unspecified Is this a current diagnosis for this admission?: Yes Plan: Most likely due to bacteremia and septic arthritis. Resolved. Afebrile. WBC trending down. Cultures positive for group B strep and a strep collected. Plan as per above. - Time Time Spent with patient: 25-34 minutes Anticipated Discharge Disposition: Home with Home Health Anticipated Discharge Timeframe: within 48 hours
[2020-01-09] MEDS: OXYCODONE-ACETAMINOPHEN 5-325 MG TABLET PO PRN ×2 (14:19→23:38)
[2020-01-09] MEDS ORDERED: AMLODIPINE BESYLATE 2.5 MG TABLET PO ONE ×2 (16:30→18:45)
[2020-01-09] MEDS: TRAZODONE HCL 50 MG TABLET PO SCH (21:54)
[2020-01-09] MEDS ORDERED: AMLODIPINE BESYLATE 2.5 MG TABLET ONE (21:54)
[2020-01-10] MEDS: HEPARIN SOD (PORCINE) 5,000 UNIT/ML 1 ML VIAL SUBCUT SCH ×3 (06:14→21:50)
[2020-01-10 06:22] LABS: ANION GAP 9 (5-19); BLOOD UREA NITROGEN 22 mg/dL (7-20); CALCIUM 9.7 mg/dL (8.4-10.2); CARBON DIOXIDE 24 mmol/L (22-30); CHLORIDE 98 mmol/L (98-107); GLUCOSE 101 mg/dL (75-110); POTASSIUM 3.5 mmol/L (3.6-5.0)
[2020-01-10] MEDS: CEFEPIME HCL 2 GM in DEXTROSE 5%-WATER 50 ML IV SCH (06:24)
[2020-01-10] MEDS: TOPIRAMATE 25 MG TABLET PO SCH ×3 (06:25→21:50)
[2020-01-10 06:51] LABS: ABSOLUTE LYMPHOCYTES (AUTO) 0.9 10^3/uL (0.5-4.7); ABSOLUTE MONOCYTES (AUTO) 1.4 10^3/uL (0.1-1.4); ABSOLUTE NEUT (AUTO) 12.1 10^3/uL (1.7-8.2); BASOPHILS % (AUTO) 0.2 % (0-2); HEMATOCRIT 46.2 % (37.9-51.0); HEMOGLOBIN 15.5 g/dL (13.5-17.0); LYMPHOCYTES % (AUTO) 6.3 % (13-45); MEAN CORPUSCULAR HEMOGLOBIN 30.1 pg (27.0-33.4); MEAN CORPUSCULAR HGB CONC 33.4 g/dL (32.0-36.0); MEAN CORPUSCULAR VOLUME 90 fl (80-97); MONOCYTES % (AUTO) 9.5 % (3-13); PLATELET COUNT 208 10^3/uL (150-450); RED BLOOD COUNT 5.14 10^6/uL (4.35-5.55); RED CELL DISTRIBUTION WIDTH 17.3 % (11.5-14.0); TOTAL CELLS COUNTED % (AUTO) 100 %; WHITE BLOOD COUNT 14.4 10^3/uL (4.0-10.5)
[2020-01-10 07:41] LABS: CYCLIC CITRUL PEPTIDE IGG/A AB 5 units (0-19)
[2020-01-10] MEDS: DOCUSATE SODIUM 100 MG CAPSULE PO SCH (09:19)
[2020-01-10] MEDS: DULOXETINE HCL 30 MG CAPSULE.DR PO SCH ×2 (09:26→17:24)
[2020-01-10] MEDS: OXYCODONE HCL SR 10 MG TABLET PO SCH ×2 (09:27→21:50)
[2020-01-10] MEDS: CARVEDILOL 12.5 MG TABLET PO SCH (09:27)
[2020-01-10] MEDS: BUSPIRONE HCL 10 MG TABLET PO SCH ×2 (09:27→17:24)
[2020-01-10] MEDS: PROMETHAZINE HCL INJ 25 MG/1 ML VIAL IV PRN (09:28)
--- NOTE | 2020-01-10 12:14 | PDOC PROGRESS REPORT ---
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 Per the patient and his , there is no history of trauma. Patient had joint injections at his pain management physician office approximately 3 months ago he also he had a tooth pulled a one week prior to admission. MRI of the thoracic and lumbar spine did not show any acute findings. 01/08/2020. Patient is status post left hip I&D with significant improvement of his pain, fluid from arthrocentesis is growing group A streptococcus as well as blood culture from admission also growing group B Streptococcus agalactiae. Patient appears somnolent however easily arousable and cooperative with physical examination and answering questions appropriately, is at bedside who is also mentioning that he is doing much better since the surgery. Patient denies any fever, chills, nausea, vomiting. 01/09/2020. No acute events overnight. Patient reporting improvement of left hip pain, patient appears somnolent likely due to opiates, does not appear to be in apparent distress, denies any fever, chills, nausea, vomiting. Accompanied by his daughter. 01/10/2020. No acute events overnight. Accompanied by his . Reporting moderate improvement of his left hip pain, denies any fever, chills, complaining of nonbloody nonbilious vomiting and diarrhea starting yesterday. Denies any shortness of breath, chest pain, abdominal pain or any urinary symptoms. Reason For Visit: LEFT HIP PAIN,SEPTIC ARTHRITIS,SEPSIS CHRONIC PAIN Physical Exam Vital Signs: Temp Pulse Resp BP Pulse Ox 98.3 F 105 H 17 149/90 H 99 01/10/20 10:00 01/10/20 08:00 01/10/20 08:00 01/10/20 08:00 01/10/20 08:00 Intake & Output 01/09/20 01/10/20 01/11/20 06:59 06:59 06:59 Intake Total 4586 200 Output Total 1250 500 Balance 3336 -300 Weight 84.8 kg 101.9 kg General appearance: PRESENT: no acute distress, well-developed, well-nourished, other - Appears somnolent, answers questions appropriately. Head exam: PRESENT: atraumatic, normocephalic Respiratory exam: PRESENT: clear to auscultation johanna. ABSENT: rales, rhonchi, wheezes Cardiovascular exam: PRESENT: RRR. ABSENT: diastolic murmur, rubs, systolic murmur GI/Abdominal exam: PRESENT: normal bowel sounds, soft. ABSENT: distended, guarding, mass, organolmegaly, rebound, tenderness Extremities exam: PRESENT: full ROM, other - Left hip wound looks clean.. ABSENT: calf tenderness, clubbing, pedal edema Neurological exam: PRESENT: alert, awake, oriented to person, oriented to place, oriented to time, oriented to situation, CN II-XII grossly intact. ABSENT: motor sensory deficit Results Laboratory Results: 01/10/20 03:56 01/10/20 03:56 01/10/20 01/10/20 01/10/20 03:56 03:56 03:56 WBC 14.4 H RBC 5.14 Hgb 15.5 Hct 46.2 MCV 90 MCH 30.1 MCHC 33.4 RDW 17.3 H Plt Count 208 Seg Neutrophils % 84.0 H Sodium 131.4 L Potassium 3.5 L Chloride 98 Carbon Dioxide 24 Anion Gap 9 BUN 22 H Creatinine 0.94 Est GFR ( Amer) > 60 Glucose 101 Calcium 9.7 Magnesium 2.0 C-Reactive Protein 229.0 H 01/06/20 20:38 Blood Blood Culture (PCR) - Final Strep Agalactiae - (Group B) 01/06/20 20:38 Blood Blood Culture - Final Group B Beta Streptococcus 01/07/20 14:54 Hip - Joint Gram Stain - Final 01/07/20 14:54 Hip - Joint Body Fluid Culture - Final Group B Beta Streptococcus No Anaerobic Organisms 01/06/20 20:30 Blood Blood Culture (PCR) - Final Strep Agalactiae - (Group B) 01/06/20 20:30 Blood Blood Culture - Final Group B Beta Streptococcus Impressions: Lumbar Spine CT 01/06/20 13:35 IMPRESSION: Marked degenerative changes. No acute findings. Thoracic Spine MRI 01/06/20 20:25 IMPRESSION: 1. No acute findings. No epidural abscess. 2. Mild degenerative changes as described, with foraminal stenosis at several levels, but no significant central canal stenosis. Please correlate with distribution of clinical symptoms. Lumbar Spine MRI 01/06/20 20:26 IMPRESSION: 1. No evidence of abscess. There is a small amount of fluid within the leftward aspect of the L2-L3 disc space, likely due to reactive degenerative disease. No compelling evidence of spondylodiscitis is seen. 2. Moderate to advanced multilevel discogenic changes and facet arthropathy with associated spinal canal stenosis and neural foraminal stenosis as detailed above. Degenerative changes are exacerbated by moderately severe lumbar scoliosis. Please see the above report for details at each level. copyright 2011 [employer]- All Rights Reserved Guidance Fluoroscopy 01/07/20 00:00 IMPRESSION: DIAGNOSTIC ASPIRATION OF THE LEFT HIP JOINT ABOVE. Hip Aspiration/Injection 01/07/20 00:00 IMPRESSION: DIAGNOSTIC ASPIRATION OF THE LEFT HIP JOINT ABOVE. Lower Extremity MRI 01/07/20 00:00 IMPRESSION: 1. Abnormal left hemipelvis and hip. Marrow edema and deep soft tissue edema. In light of the history of septic arthritis and appearance of generalized inflammatory process, this is presumed cellulitis, myositis and osteomyelitis. Please correlate with recent diagnostic hip aspiration results. Note is made of loss of the joint space and flattening of the superior femoral head. This could be related to joint infection or subchondral fracture/AVN. Hip X-Ray 01/09/20 00:00 IMPRESSION: Expected postoperative changes left hip Assessment and Plan - Diagnosis (1) Septic arthritis due to Streptococcus species Qualifiers: Septic arthritis location: hip Laterality: left Qualified Code(s): M00.252 - Other streptococcal arthritis, left hip Is this a current diagnosis for this admission?: Yes Plan: Most likely source oral cavity. Patient had a tooth pulled about a week prior to presentation. Status post left hip arthrocentesis and I&D by orthopedic surgery. Blood culture and joint fluid positive for Streptococcus agalactiae. Day 4 IV antibiotics. Day 4 IV cefepime. Received 3 days of IV vancomycin. Continue broad-spectrum empiric antibiotics. Patient may need prolonged IV antibiotics. ID consulted for antibiotic choice and duration. Pending recommendations. (2) Hypertension Is this a current diagnosis for this admission?: Yes Plan: No history of hypertension however patient noted to be hypertensive and tachycardic on this admission. SPO2 WNL, afebrile, denies any chest pain. Not sure if this is related to his anxiety and pain. Continue Coreg 12.5 mg p.o. twice daily. Amlodipine 5 mg p.o. daily. As needed IV metoprolol. Monitor vitals. Adjust meds as needed. (3) Gram-positive bacteremia Is this a current diagnosis for this admission?: Yes Plan: Blood culture positive for Streptococcus agalactiae. Likely source oral cavity. Patient had a tooth removed a week prior to presentation. Repeat blood culture negative. Continue broad-spectrum IV antibiotics. As per ID recommendation patient will need IV ceftriaxone 2 g daily for 4 weeks starting from the day of surgery which is 01/09/2020. Patient will also need 2D echo and will still need 4 weeks of IV ceftriaxone regardless. (4) ROXANA (acute kidney injury) Is this a current diagnosis for this admission?: Yes Plan: Resolved. Prerenal most likely due to sepsis due to infected left hip Continue cautious volume resuscitation guided by volume status. Avoid nephrotoxic meds. Monitor volume status and electrolytes and replace as needed. (5) Avascular necrosis of bone of left hip Is this a current diagnosis for this admission?: Yes Plan: Likely chronic. As per patient has been having chronic problem for the last several years. Denies any trauma, sickle cell anemia, chronic steroid intake or any rheumatological disorder. Patient may need joint replacement once infection is under control. Orthopedic surgery on board. Recommendations noted. Symptomatic management. (6) Narcotic dependency, continuous Is this a current diagnosis for this admission?: Yes Plan: Due to chronic musculoskeletal pain. Has very high tolerance due to chronic opioid dependency. Noted to be drowsy and groggy at times. SPO2 WNL. Monitor for respiratory depression. Taper opioids as possible. Outpatient PCP and pain management follow-up. (7) Sepsis Qualifiers: Sepsis type: sepsis due to unspecified organism Sepsis acute organ dysfunction status: with acute organ dysfunction Severe sepsis acute organ dysfunction type: acute renal failure Acute renal failure type: unspecified Severe sepsis shock status: without septic shock Qualified Code(s): A41.9 - Sepsis, unspecified organism; R65.20 - Severe sepsis without septic shock; N17.9 - Acute kidney failure, unspecified Is this a current diagnosis for this admission?: Yes Plan: Most likely due to bacteremia and septic arthritis. Resolved. Afebrile. WBC trending down. Cultures positive for group B strep and a strep collected. Plan as per above. (8) Nausea and vomiting Qualifiers: Vomiting Intractability: unspecified Is this a current diagnosis for this admission?: Yes Plan: Denies any abdominal pain. Denies any fever. Complaining of watery diarrhea, nonbilious vomiting. Monitor volume status and electrolytes replace electrolytes as needed. Antiemetics. Rule out infectious diarrhea, will obtain C. difficile toxin, stool culture, stool WBC, ova and parasite. Once infection has been ruled out can start on antidiarrheals. - Time Time Spent with patient: 35 or more minutes Anticipated Discharge Disposition: Home with Home Health Anticipated Discharge Timeframe: within 72 hours
[2020-01-10] MEDS: AMLODIPINE BESYLATE 5 MG TABLET PO SCH (12:24)
[2020-01-10] MEDS ORDERED: NORMAL SALINE 1000 ML 1,000 ML IV ONE (12:30)
--- NOTE | 2020-01-10 12:36 | PDOC PROGRESS REPORT ---
Subjective Date:: 01/10/20 Subjective:: Patient feeling much better today. Reports improvement in her pain. Reports im provement in general symptoms of sickness. Not as much nausea overnight. Reason For Visit: LEFT HIP PAIN,SEPTIC ARTHRITIS,SEPSIS CHRONIC PAIN Physical Exam Vital Signs: Temp Pulse Resp BP Pulse Ox 97.5 F 101 H 18 130/98 H 100 01/10/20 12:00 01/10/20 12:00 01/10/20 12:00 01/10/20 12:00 01/10/20 12:00 Intake & Output 01/09/20 01/10/20 01/11/20 06:59 06:59 06:59 Intake Total 4586 200 Output Total 1250 500 Balance 3336 -300 Weight 84.8 kg 101.9 kg Physical Exam: No acute distress, alert and oriented x3 Left lower extremity -Pulses 2+ distally -Compartments soft -Sensation grossly intact to L3-4-5 S1 -Motor grossly intact to EHL TA gastroc and quad Dressing clean dry and intact Improved ability to perform logroll without pain. Results Laboratory Results: 01/10/20 03:56 01/10/20 03:56 01/10/20 01/10/20 01/10/20 03:56 03:56 03:56 WBC 14.4 H RBC 5.14 Hgb 15.5 Hct 46.2 MCV 90 MCH 30.1 MCHC 33.4 RDW 17.3 H Plt Count 208 Seg Neutrophils % 84.0 H Sodium 131.4 L Potassium 3.5 L Chloride 98 Carbon Dioxide 24 Anion Gap 9 BUN 22 H Creatinine 0.94 Est GFR ( Amer) > 60 Glucose 101 Calcium 9.7 Magnesium 2.0 C-Reactive Protein 229.0 H 01/06/20 20:38 Blood Blood Culture (PCR) - Final Strep Agalactiae - (Group B) 01/06/20 20:38 Blood Blood Culture - Final Group B Beta Streptococcus 01/07/20 14:54 Hip - Joint Gram Stain - Final 01/07/20 14:54 Hip - Joint Body Fluid Culture - Final Group B Beta Streptococcus No Anaerobic Organisms 01/06/20 20:30 Blood Blood Culture (PCR) - Final Strep Agalactiae - (Group B) 01/06/20 20:30 Blood Blood Culture - Final Group B Beta Streptococcus Impressions: Lumbar Spine CT 01/06/20 13:35 IMPRESSION: Marked degenerative changes. No acute findings. Thoracic Spine MRI 01/06/20 20:25 IMPRESSION: 1. No acute findings. No epidural abscess. 2. Mild degenerative changes as described, with foraminal stenosis at several levels, but no significant central canal stenosis. Please correlate with distribution of clinical symptoms. Lumbar Spine MRI 01/06/20 20:26 IMPRESSION: 1. No evidence of abscess. There is a small amount of fluid within the leftward aspect of the L2-L3 disc space, likely due to reactive degenerative disease. No compelling evidence of spondylodiscitis is seen. 2. Moderate to advanced multilevel discogenic changes and facet arthropathy with associated spinal canal stenosis and neural foraminal stenosis as detailed above. Degenerative changes are exacerbated by moderately severe lumbar scoliosis. Please see the above report for details at each level. copyright 2011 [employer]- All Rights Reserved Guidance Fluoroscopy 01/07/20 00:00 IMPRESSION: DIAGNOSTIC ASPIRATION OF THE LEFT HIP JOINT ABOVE. Hip Aspiration/Injection 01/07/20 00:00 IMPRESSION: DIAGNOSTIC ASPIRATION OF THE LEFT HIP JOINT ABOVE. Lower Extremity MRI 01/07/20 00:00 IMPRESSION: 1. Abnormal left hemipelvis and hip. Marrow edema and deep soft tissue edema. In light of the history of septic arthritis and appearance of generalized inflammatory process, this is presumed cellulitis, myositis and osteomyelitis. Please correlate with recent diagnostic hip aspiration results. Note is made of loss of the joint space and flattening of the superior femoral head. This could be related to joint infection or subchondral fracture/AVN. Hip X-Ray 01/09/20 00:00 IMPRESSION: Expected postoperative changes left hip Assessment & Plan - Diagnosis (1) Avascular necrosis of bone of left hip Is this a current diagnosis for this admission?: Yes (2) Septic arthritis of hip Qualifiers: Septic arthritis organism: streptococcal Laterality: left Qualified Code(s): M00.252 - Other streptococcal arthritis, left hip Is this a current diagnosis for this admission?: Yes Plan: -Antibiotics per hospitalist or infectious disease. Patient will need 6 weeks of targeted antibiotics. If IV, will need PICC line Patient may follow-up with me in the office in approximately 10 days Weightbearing as tolerated Encourage out of bed and ambulation Physical therapy DVT prophylaxis per hospitalist team Maintain dressing until seen in the office - Time Time Spent with patient: Less than 15 minutes
[2020-01-10] MEDS: CEFTRIAXONE 2 GM/D5W RTU 2 GM/50 ML RTUPB IV SCH (17:23)
[2020-01-10] MEDS: OXYCODONE-ACETAMINOPHEN 5-325 MG TABLET PO PRN ×2 (17:23→23:34)
[2020-01-10] MEDS: TRAZODONE HCL 50 MG TABLET PO SCH (21:50)
[2020-01-11] MEDS: TOPIRAMATE 25 MG TABLET PO SCH ×3 (05:32→21:17)
[2020-01-11] MEDS: HEPARIN SOD (PORCINE) 5,000 UNIT/ML 1 ML VIAL SUBCUT SCH ×3 (05:32→21:16)
[2020-01-11] MEDS: OXYCODONE-ACETAMINOPHEN 5-325 MG TABLET PO PRN ×4 (05:36→22:53)
[2020-01-11 05:46] LABS: HEMATOCRIT 43.4 % (37.9-51.0); HEMOGLOBIN 14.7 g/dL (13.5-17.0); MEAN CORPUSCULAR HEMOGLOBIN 30.1 pg (27.0-33.4); MEAN CORPUSCULAR HGB CONC 33.8 g/dL (32.0-36.0); MEAN CORPUSCULAR VOLUME 89 fl (80-97); PLATELET COUNT 210 10^3/uL (150-450); RED BLOOD COUNT 4.87 10^6/uL (4.35-5.55); RED CELL DISTRIBUTION WIDTH 17.5 % (11.5-14.0); WHITE BLOOD COUNT 9.8 10^3/uL (4.0-10.5)
[2020-01-11 06:07] LABS: ALBUMIN 2.8 g/dL (3.5-5.0); ALKALINE PHOSPHATASE 59 U/L (38-126); ANION GAP 10 (5-19); ASPARTATE AMINO TRANSFERASE 35 U/L (17-59); BILIRUBIN,DIRECT 0.2 mg/dL (0.0-0.4); BILIRUBIN,TOTAL 0.7 mg/dL (0.2-1.3); BLOOD UREA NITROGEN 23 mg/dL (7-20); CARBON DIOXIDE 22 mmol/L (22-30); CHLORIDE 98 mmol/L (98-107); GLUCOSE 92 mg/dL (75-110); POTASSIUM 3.5 mmol/L (3.6-5.0); TOTAL PROTEIN 5.3 g/dL (6.3-8.2)
--- NOTE | 2020-01-11 08:15 | Progress Note ---
Provider Note Provider Note: [facility] ID Telephone Advice Consultation Chart reviewed. Patient not seen nor examined. This is a 69-year-old man with history of meningitis in the past associated to back surgery who was admitted due to left hip pain. He had an injection to his left hip due to worsening hip pain, this was q week prior to admission. Patient was febrile on admission, meeting criteria for sepsis. X ray of the left hip with changes consistent with degenerative disease. Synovial fluid examination was positive for infection. MRI of the hip showed marrow edema, deep soft tissue edema, cellulitis, myositis and osteomyelitis. Blood cultures on 01/05 positive for GBS and synovial fluid culture as well. He was evaluated by orthopedics on 01/06 and was taken ot the OR on 01/07 for irrigation and debridement. Tissue culture positive for GBS. Patient was initially on vancomycin and cefepime. ESR was 8 but CRP 398. He had an acute kidney injury that has now resolved. Leukocytosis improving as well. New blood cultures from 01/06 remain negative. ID consulted for recommendations. Allergies: ampicillin Allergy (Verified 01/06/20 17:44) Medications: Buspirone HCl [Buspar 10 mg Tablet] 10 mg PO BID 01/07/20 Dextromethorphan HBr/Quinidine [Nuedexta 20-10 mg Capsule] 1 cap PO DAILY 01/07/20 Duloxetine HCl [Cymbalta] 60 mg PO BID 01/07/20 Oxycodone HCl [Oxycontin] 20 mg PO Q12 01/07/20 Oxycodone HCl/Acetaminophen [Percocet 10-325 mg Tablet] 1 tab PO Q6 01/07/20 Topiramate [Topamax 25 mg Tablet] 25 mg PO Q8 01/07/20 Trazodone HCl [Desyrel 50 mg Tablet] 50 mg PO QHS 01/07/20 Zolpidem Tartrate [Ambien 5 mg Tablet] 5 mg PO QHS 01/07/20 Vital Signs: Temp Pulse Resp BP Pulse Ox 97.5 F 90 18 141/87 H 98 01/11/20 00:16 01/11/20 00:16 01/11/20 00:16 01/11/20 00:16 01/11/20 06:58 Intake & Output 01/10/20 01/11/20 01/12/20 06:59 06:59 06:59 Intake Total 200 1920 Output Total 500 600 Balance -300 1320 Weight 101.9 kg 102.4 kg Weight/Height Weight 102.4 kg Height 6 ft Laboratories: 01/11/20 04:24 01/11/20 04:24 MCV 89 fl (80-97) 01/11/20 04:24 MCH 30.1 pg (27.0-33.4) 01/11/20 04:24 MCHC 33.8 g/dL (32.0-36.0) 01/11/20 04:24 RDW 17.5 % (11.5-14.0) H 01/11/20 04:24 Seg Neutrophils % 84.0 % (42-78) H 01/10/20 03:56 Chloride 98 mmol/L (98-107) 01/11/20 04:24 Carbon Dioxide 22 mmol/L (22-30) 01/11/20 04:24 Anion Gap 10 (5-19) 01/11/20 04:24 Est GFR ( Amer) > 60 (>60) 01/11/20 04:24 Glucose 92 mg/dL (75-110) 01/11/20 04:24 Lactic Acid 2.0 mmol/L (0.7-2.1) 01/06/20 20:30 Calcium 9.0 mg/dL (8.4-10.2) 01/11/20 04:24 Phosphorus 2.4 mg/dL (2.5-4.5) L 01/08/20 06:23 Magnesium 1.9 mg/dL (1.6-2.3) 01/11/20 04:24 Total Bilirubin 0.7 mg/dL (0.2-1.3) 01/11/20 04:24 AST 35 U/L (17-59) 01/11/20 04:24 Alkaline Phosphatase 59 U/L (38-126) 01/11/20 04:24 C-Reactive Protein 229.0 mg/L (<10.0) H 01/10/20 03:56 Total Protein 5.3 g/dL (6.3-8.2) L 01/11/20 04:24 Albumin 2.8 g/dL (3.5-5.0) L 01/11/20 04:24 Urine Color YELLOW 01/06/20 14:48 Urine Appearance CLEAR 01/06/20 14:48 Urine pH 5.0 (5.0-9.0) 01/06/20 14:48 Ur Specific Dawson 1.016 01/06/20 14:48 Urine Protein NEGATIVE mg/dL (NEGATIVE) 01/06/20 14:48 Urine Glucose (UA) NEGATIVE mg/dL (NEGATIVE) 01/06/20 14:48 Urine Ketones NEGATIVE mg/dL (NEGATIVE) 01/06/20 14:48 Urine Blood NEGATIVE (NEGATIVE) 01/06/20 14:48 Urine Nitrite NEGATIVE (NEGATIVE) 01/06/20 14:48 Ur Leukocyte Esterase NEGATIVE (NEGATIVE) 01/06/20 14:48 Urine WBC (Auto) 0 /HPF 01/06/20 14:48 Urine RBC (Auto) 1 /HPF 01/06/20 14:48 Fluid Type SYNOVIAL 01/07/20 14:54 Fluid Type SYNOVIAL 01/07/20 14:54 Fluid Source KNEE 01/07/20 14:54 Fluid Color RED 01/07/20 14:54 Fluid Appearance TURBID 01/07/20 14:54 Fluid Viscosity HIGHLY VISCOUS 01/07/20 14:54 Fluid WBC [id number] /uL 01/07/20 14:54 Fluid RBC [id number] /uL 01/07/20 14:54 Microbiology: Blood cultures 01/05 GBS 01/06 NGTD Synovial FLuid culture 01/06 GBS Tissue culture 01/07 GBS Radiology: Lumbar Spine CT 01/06/20 13:35 IMPRESSION: Marked degenerative changes. No acute findings. Thoracic Spine MRI 01/06/20 20:25 IMPRESSION: 1. No acute findings. No epidural abscess. 2. Mild degenerative changes as described, with foraminal stenosis at several levels, but no significant central canal stenosis. Please correlate with distribution of clinical symptoms. Lumbar Spine MRI 01/06/20 20:26 IMPRESSION: 1. No evidence of abscess. There is a small amount of fluid within the leftward aspect of the L2-L3 disc space, likely due to reactive degenerative disease. No compelling evidence of spondylodiscitis is seen. 2. Moderate to advanced multilevel discogenic changes and facet arthropathy with associated spinal canal stenosis and neural foraminal stenosis as detailed above. Degenerative changes are exacerbated by moderately severe lumbar scoliosis. Please see the above report for details at each level. Lower Extremity MRI 01/07/20 00:00 IMPRESSION: 1. Abnormal left hemipelvis and hip. Marrow edema and deep soft tissue edema. In light of the history of septic arthritis and appearance of generalized inflammatory process, this is presumed cellulitis, myositis and osteomyelitis. Please correlate with recent diagnostic hip aspiration results. Note is made of loss of the joint space and flattening of the superior femoral head. This could be related to joint infection or subchondral fracture/AVN. Hip X-Ray 01/09/20 00:00 IMPRESSION: Expected postoperative changes left hip Assessment and Recommendations: Patient evaluated due to Streptococcus agalactiae bacteremia with left hip septic arthritis and suspected osteomyelitis. Patient with history of bacterial meningitis and recent history of injection to his hip. This was probably the risk factor for bacteremia and septic arthritis. He had a dental infection s/p tooth extraction, it is unclear if that was a potential source. His hip was already demonstrating severe degenerative changes which makes it more prone to infections, especially with steroids injections. He has had good source control with I&D. New blood cultures have documented clearance of bacteremia. Even though we have a source of infection, will recommend TTE to rule out endovascular complications form GBS. The treatment for septic arthritis is 4 weeks, but in view that the MRI was suggestive of osteomyelitis, will recommend 6 weeks of therapy. Ceftriaxone 2g IV daily should be adequate and more convenient. Should monitor CBC, CMP and CRP weekly while on antibiotics. EOT 02/19/2020. Remove PICC line at completion of therapy. Please call back if TTE is positive or if any new findings or questions. Tami Marquez MD [facility] ID [phone]
[2020-01-11] MEDS: BUSPIRONE HCL 10 MG TABLET PO SCH ×2 (10:45→18:09)
[2020-01-11] MEDS: AMLODIPINE BESYLATE 5 MG TABLET PO SCH (10:45)
[2020-01-11] MEDS: OXYCODONE HCL SR 10 MG TABLET PO SCH ×2 (10:45→21:17)
[2020-01-11] MEDS: DOCUSATE SODIUM 100 MG CAPSULE PO SCH (10:45)
[2020-01-11] MEDS: CARVEDILOL 12.5 MG TABLET PO SCH (10:46)
[2020-01-11] MEDS: DULOXETINE HCL 30 MG CAPSULE.DR PO SCH ×2 (10:46→18:09)
[2020-01-11] MEDS ORDERED: KETOROLAC TROMETHAMINE INJ/PF 30 MG/1 ML SDV IV ONE (14:15)
--- NOTE | 2020-01-11 17:04 | RADIOLOGY REPORT (SQ) ---
EXAM DESCRIPTION: PICC INSERTION IMAGES COMPLETED DATE/TIME: 01/11/2020 12:10 pm REASON FOR STUDY: Long-term IV antibiotics COMPARISON: None. FLUOROSCOPY TIME: 0.19 minutes 1 images saved to PACS. TECHNIQUE: Fluoroscopic and ultrasound guided PICC placement. LIMITATIONS: None. PROCEDURE: After written consent and assessment were obtained, the patient was brought into the fluo roscopy room and placed supine on the table. Ultrasound evaluation of potential access sites were per formed. After successfully identifying a patent left upper extremity brachiocephalic vein, the left u pper arm was prepped and draped in a sterile fashion along with the ultrasound probe. The entry site was anesthetized with 1% lidocaine. A 21 gauge 7 cm needle was advanced through the skin and into the left brachiocephalic vein under live ultrasound guidance. An ultrasound image was saved to PACS con firming access site. A .018 guide wire was then inserted through the needle and into the venous syst em. The needle was then removed and an 11 blade scalpel was used to make a 1cm skin incision. A 5 fr peel-away sheath was advanced over the wire and into the venous system. A measurement was then made using the existing wire and live fluoroscopic guidance. The wire was then removed and trimmed. The PI CC was advanced through the peel-away sheath and into the venous system. The peel-away sheath was rem emperatriz and the catheter was adhered to the patients arm with a stat lock. The catheter was then aspirat ed and flushed and a sterile bandage was placed over the access site. A fluoroscopic spot image was saved to PACS confirming the catheter tip within the SVC. IMPRESSION: SUCCESSFUL PLACEMENT OF A 5 FR DUAL LUMEN 46 CM PICC IN THE LEFT BRACHIOCEPHALIC VEIN. COMMENT: Patient medication list reviewed: Yes- Quality ID# [id number]:Eligible professional attests to doc umenting in the medical record they obtained, updated, or reviewed the patient's current medications. . Quality ID 145: Final reports for procedures using fluoroscopy that document radiation exposure kelvin rhona, or exposure time and number of fluorographic images (if radiation exposure indices are not avail able) Quality ID #76: The patient was prepped and draped using maximum sterile barrier technique including cap, mask, sterile gown, sterile gloves, a large sterile sheet, hand hygiene, and 2% Chlorhexidine fo r cutaneous antisepsis. When ultrasound is used, sterile ultrasound techniques are followed requiring sterile gel and sterile probes. TECHNICAL DOCUMENTATION: JOB ID: [id number] 2010 [employer]- All Rights Reserved rev-07/11 Reading location - IP/workstation name: [email or web address]
--- NOTE | 2020-01-11 17:40 | PDOC PROGRESS REPORT ---
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 Patient was seen on afternoon rounds. He is found resting in bed, comfortably, on supplemental oxygen by nasal cannula 2 L/min. He is not home O2 dependent and is currently maintaining oxygen saturations of 100%. Patient complains of continued back (chronic) and left hip pain. He does request additional pain medication. Patient was able to work with physical therapy yesterday; took approximately 5 steps with minimum assist and front wheel walker. Otherwise, he denies fever, chills, chest pain, palpitations, dyspnea, orthopnea, abdominal pain, nausea vomiting and diarrhea. He has no other questions or concerns at this time. No concerns per nursing. Reason For Visit: LEFT HIP PAIN,SEPTIC ARTHRITIS,SEPSIS CHRONIC PAIN Physical Exam Vital Signs: Temp Pulse Resp BP Pulse Ox 98.0 F 81 16 152/81 H 96 01/11/20 16:00 01/11/20 16:00 01/11/20 16:00 01/11/20 16:00 01/11/20 16:00 Intake & Output 01/10/20 01/11/20 01/12/20 06:59 06:59 06:59 Intake Total 200 1920 532 Output Total 500 600 600 Balance -300 1320 -68 Weight 101.9 kg 102.4 kg General appearance: PRESENT: no acute distress, obese, well-developed, well-nourished Head exam: PRESENT: atraumatic, normocephalic Eye exam: PRESENT: conjunctiva pink, EOMI, PERRLA. ABSENT: scleral icterus Mouth exam: PRESENT: moist, tongue midline Respiratory exam: PRESENT: clear to auscultation johanna, symmetrical, unlabored, other - supplement. ABSENT: rales, rhonchi, wheezes Cardiovascular exam: PRESENT: RRR. ABSENT: diastolic murmur, rubs, systolic murmur Pulses: PRESENT: normal dorsalis pedis pul Vascular exam: PRESENT: normal capillary refill GI/Abdominal exam: PRESENT: normal bowel sounds, soft. ABSENT: distended, guarding, mass, organolmegaly, rebound, tenderness Rectal exam: PRESENT: deferred Extremities exam: PRESENT: full ROM, tenderness - Left hip. ABSENT: calf tenderness, clubbing, pedal edema Musculoskeletal exam: PRESENT: ambulatory - ~10' w/ FWW Neurological exam: PRESENT: alert, awake, oriented to person, oriented to place, oriented to time, oriented to situation, CN II-XII grossly intact, other - fatigued; forgetful and repetative. ABSENT: motor sensory deficit Psychiatric exam: PRESENT: appropriate affect, normal mood. ABSENT: homicidal ideation, suicidal ideation Skin exam: PRESENT: dry, intact, warm. ABSENT: cyanosis, rash Results Laboratory Results: 01/11/20 04:24 01/11/20 04:24 01/11/20 01/11/20 04:24 04:24 WBC 9.8 RBC 4.87 Hgb 14.7 Hct 43.4 MCV 89 MCH 30.1 MCHC 33.8 RDW 17.5 H Plt Count 210 Sodium 130.2 L Potassium 3.5 L Chloride 98 Carbon Dioxide 22 Anion Gap 10 BUN 23 H Creatinine 0.92 Est GFR ( Amer) > 60 Glucose 92 Calcium 9.0 Magnesium 1.9 Total Bilirubin 0.7 AST 35 Alkaline Phosphatase 59 Total Protein 5.3 L Albumin 2.8 L 01/08/20 11:43 Hip - Left Gram Stain - Final 01/08/20 11:43 Hip - Left Wound Culture - Final Group B Beta Streptococcus No Anaerobic Organisms 01/08/20 11:43 Hip - Tissue (Surgical) Gram Stain - Final 01/08/20 11:43 Hip - Tissue (Surgical) Wound Culture - Final Group B Beta Streptococcus No Anaerobic Organisms Impressions: Lumbar Spine CT 01/06/20 13:35 IMPRESSION: Marked degenerative changes. No acute findings. Thoracic Spine MRI 01/06/20 20:25 IMPRESSION: 1. No acute findings. No epidural abscess. 2. Mild degenerative changes as described, with foraminal stenosis at several levels, but no significant central canal stenosis. Please correlate with distribution of clinical symptoms. Lumbar Spine MRI 01/06/20 20:26 IMPRESSION: 1. No evidence of abscess. There is a small amount of fluid within the leftward aspect of the L2-L3 disc space, likely due to reactive degenerative disease. No compelling evidence of spondylodiscitis is seen. 2. Moderate to advanced multilevel discogenic changes and facet arthropathy with associated spinal canal stenosis and neural foraminal stenosis as detailed above. Degenerative changes are exacerbated by moderately severe lumbar scoliosis. Please see the above report for details at each level. copyright 2010 [employer]- All Rights Reserved Guidance Fluoroscopy 01/07/20 00:00 IMPRESSION: DIAGNOSTIC ASPIRATION OF THE LEFT HIP JOINT ABOVE. Hip Aspiration/Injection 01/07/20 00:00 IMPRESSION: DIAGNOSTIC ASPIRATION OF THE LEFT HIP JOINT ABOVE. Lower Extremity MRI 01/07/20 00:00 IMPRESSION: 1. Abnormal left hemipelvis and hip. Marrow edema and deep soft tissue edema. In light of the history of septic arthritis and appearance of generalized inflammatory process, this is presumed cellulitis, myositis and osteomyelitis. Please correlate with recent diagnostic hip aspiration results. Note is made of loss of the joint space and flattening of the superior femoral head. This could be related to joint infection or subchondral fracture/AVN. Hip X-Ray 01/09/20 00:00 IMPRESSION: Expected postoperative changes left hip PICC Line Insertion 01/11/20 00:00 IMPRESSION: SUCCESSFUL PLACEMENT OF A 5 FR DUAL LUMEN 46 CM PICC IN THE LEFT BRACHIOCEPHALIC VEIN. Assessment and Plan - Diagnosis (1) Septic arthritis due to Streptococcus species Qualifiers: Septic arthritis location: hip Laterality: left Qualified Code(s): M00.252 - Other streptococcal arthritis, left hip Is this a current diagnosis for this admission?: Yes Plan: Most likely source oral cavity. Patient had a tooth pulled about a week prior to presentation. Status post left hip arthrocentesis and I&D by orthopedic surgery. Blood culture and joint fluid positive for Streptococcus agalactiae. Infectious disease consulted. Upon review of MRI that is suggestive of possible osteomyelitis, have recommended 6 weeks course of therapy. Continue ceftriaxone 2 g daily . EOT 02/20/2020. Outpatient follow-up with orthopedic surgery. (2) Avascular necrosis of bone of left hip Is this a current diagnosis for this admission?: Yes Plan: Likely chronic. As per patient has been having chronic problem for the last several years. Denies any trauma, sickle cell anemia, chronic steroid intake or any rheumatological disorder. Patient may need joint replacement once infection is under control. Orthopedic surgery on board. Recommendations noted. Symptomatic management. Outpatient follow up with Dr. Bush in 10 days. (3) Gram-positive bacteremia Is this a current diagnosis for this admission?: Yes Plan: Blood culture positive for Streptococcus agalactiae. Likely source oral cavity. Patient had a tooth removed a week prior to presentation. Repeat blood culture negative. Echocardiogram pending. As per ID recommendation patient will need IV ceftriaxone 2 g daily for 6 weeks starting from the day of surgery which is 01/09/2020. (4) Hypertension Is this a current diagnosis for this admission?: Yes Plan: No history of hypertension however patient noted to be hypertensive and tachycardic on this admission. SPO2 WNL, afebrile, denies any chest pain. Not sure if this is related to his anxiety and pain. Continue Coreg 12.5 mg p.o. twice daily. Amlodipine 5 mg p.o. daily. As needed IV metoprolol. Monitor vitals. Adjust meds as needed. Outpatient PCP follow up. (5) Narcotic dependency, continuous Is this a current diagnosis for this admission?: Yes Plan: Due to chronic musculoskeletal pain. Has very high tolerance due to chronic opioid dependency. Noted to be drowsy and groggy at times. SPO2 WNL. Monitor for respiratory depression. Taper opioids as possible. Discussed with patient's provider at [facility] pain management today. They advised that the patient should have plenty of remaining pills at home. They recommend continuing his OxyContin 20 mg twice daily; unchanged from previously prescribed. Recommend increasing Percocet 10/325 from every 6 hours to every 4 hours until the follow-up visit he has scheduled for 01/14/2020 at 10:30 AM. Request that I send in a prescription for Narcan. Outpatient PCP and pain management follow-up. (6) Sepsis Qualifiers: Sepsis type: sepsis due to unspecified organism Sepsis acute organ dysfunction status: with acute organ dysfunction Severe sepsis acute organ dysfunction type: acute renal failure Acute renal failure type: unspecified Severe sepsis shock status: without septic shock Qualified Code(s): A41.9 - Sepsis, unspecified organism; R65.20 - Severe sepsis without septic shock; N17.9 - Acute kidney failure, unspecified Is this a current diagnosis for this admission?: Yes Plan: Resolved. Afebrile. Leukocytosis has resolved. Most likely due to bacteremia and septic arthritis. Cultures positive for group B strep and a strep collected. Plan as per above. (7) Nausea and vomiting Qualifiers: Vomiting Intractability: unspecified Is this a current diagnosis for this admission?: Yes Plan: Resolved. (8) ROXANA (acute kidney injury) Is this a current diagnosis for this admission?: Yes Plan: Resolved. Prerenal most likely due to sepsis due to infected left hip Continue cautious volume resuscitation guided by volume status. Avoid nephrotoxic meds. Monitor volume status and electrolytes and replace as needed. - Time Time Spent with patient: 35 or more minutes Medications reviewed and adjusted accordingly: Yes Anticipated Discharge Disposition: Home with Home Health Anticipated Discharge Timeframe: within 24 hours - pending arrangements w/ HH service.
[2020-01-11] MEDS: CEFTRIAXONE 2 GM/D5W RTU 2 GM/50 ML RTUPB IV SCH (18:16)
[2020-01-11] MEDS: TRAZODONE HCL 50 MG TABLET PO SCH (21:17)
--- NOTE | 2020-01-12 00:03 | XCELERA REPORT ---
[address] [address] Transthoracic Echocardiogram Report Name: AUGUST CORBIN Age: 69 yrs Gender: Male : 1950 Patient Status: Inpatient Patient Location: [address] [place], [place] [address]A Study Date: 01/10/2020 07:15 PM Height: 72 in Weight: 224 lb BSA: 2.2 m2 Procedure: A two-dimensional transthoracic echocardiogram with color flow and Doppler was performed. The study was technically difficult with many images being suboptimal in quality. Reason For Study: Gram-positive bacteremia History: Gram-positive bacteremia. Ordering Physician: JAILENE ABERNATHY Performed By: Amber Wilkes Interpretation Summary The left ventricle is normal in size. There is mild concentric left ventricular hypertrophy. LV EF is 65% Left ventricular systolic function is normal. Doppler measurements suggest impaired left ventricular relaxation, which is associated with grade I/IV or mild diastolic dysfunction The left ventricular wall motion is normal. There is no thrombus. No ASD,VSD or PFO. The right ventricle is not well visualized secondary to technical limitations The right atrium is normal. The left atrial size is normal. There is no evidence of mitral valve prolapse. There is no vegetation seen on the mitral valve. There is no mitral valve stenosis. There is a trace amount of mitral regurgitation There is no aortic valvular vegetation. There is no aortic valve stenosis There is a trace amount of aortic regurgitation There is no tricuspid valve vegetation. There is no tricuspid stenosis. There is a trace amount of tricuspid regurgitation Tricuspid regurgitation jet envelope not well defined to measure RV systolic pressure accurately. There is no vegetation on the pulmonic valve. There is no pulmonic valvular stenosis. There is no pulmonic valvular regurgitation. The aortic root is normal size. The inferior vena cava appeared normal and decreased > 50% with respiration (RAP 5-10 mmHg) There is no pericardial effusion. MMode/2D Measurements & Calculations RVDd: 3.4 cm LVIDd: 4.6 cm FS: 39.2 % Ao root diam: 2.8 cm IVSd: 1.3 cm LVIDs: 2.8 cm EDV(Teich): 95.3 ml Ao root area: 6.1 cm2 LVPWd: 1.4 cm ESV(Teich): 28.9 ml LA dimension: 3.7 cm EF(Teich): 69.7 % Doppler Measurements & Calculations MV E max alaina: MV P1/2t max alaina: Ao V2 max: LV V1 max P.1 cm/sec 68.8 cm/sec 173.2 cm/sec 7.3 mmHg MV A max alaina: MV P1/2t: 68.0 msec Ao max PG: LV V1 max: 87.1 cm/sec MVA(P1/2t): 3.2 cm2 12.0 mmHg 134.8 cm/sec MV E/A: 0.83 MV dec slope: 296.5 cm/sec2 MV dec time: 0.26 sec PA V2 max: MV P1/2t-pr_phl: 95.6 cm/sec 68.0 msec PA max P.7 mmHg Left Ventricle The left ventricle is normal in size. There is mild concentric left ventricular hypertrophy. LV EF is 65%. Left ventricular systolic function is normal. Doppler measurements suggest impaired left ventricular relaxation, which is associated with grade I/IV or mild diastolic dysfunction. The left ventricular wall motion is normal. There is no thrombus. No ASD,VSD or PFO. Right Ventricle The right ventricle is not well visualized secondary to technical limitations. Atria The right atrium is normal. The left atrial size is normal. Mitral Valve There is no evidence of mitral valve prolapse. There is no vegetation seen on the mitral valve. There is no mitral valve stenosis. There is a trace amount of mitral regurgitation. Aortic Valve There is no aortic valvular vegetation. There is no aortic valve stenosis. There is a trace amount of aortic regurgitation. Tricuspid Valve There is no tricuspid valve vegetation. There is no tricuspid stenosis. There is a trace amount of tricuspid regurgitation. Tricuspid regurgitation jet envelope not well defined to measure RV systolic pressure accurately. Pulmonic Valve There is no vegetation on the pulmonic valve. There is no pulmonic valvular stenosis. There is no pulmonic valvular regurgitation. Great Vessels The aortic root is normal size. The inferior vena cava appeared normal and decreased > 50% with respiration (RAP 5-10 mmHg). Effusions There is no pericardial effusion. : JAILENE ABERNATHY Lakshmi
[2020-01-12] MEDS: TOPIRAMATE 25 MG TABLET PO SCH ×2 (05:44→13:08)
[2020-01-12] MEDS: HEPARIN SOD (PORCINE) 5,000 UNIT/ML 1 ML VIAL SUBCUT SCH ×2 (05:44→13:08)
--- NOTE | 2020-01-12 07:42 | PDOC PROGRESS REPORT ---
Subjective Date:: 01/12/20 Subjective:: Patient seen and examined this morning. No events overnight. No new complaints . Patient reports feeling better. Reason For Visit: LEFT HIP PAIN,SEPTIC ARTHRITIS,SEPSIS CHRONIC PAIN Physical Exam Vital Signs: Temp Pulse Resp BP Pulse Ox 97.5 F 54 L 18 141/90 H 96 01/12/20 00:31 01/12/20 00:31 01/12/20 00:31 01/12/20 00:31 01/12/20 00:31 Intake & Output 01/11/20 01/12/20 01/13/20 06:59 06:59 06:59 Intake Total 1920 1157 Output Total 600 2150 Balance 1320 -993 Weight 102.4 kg 101.6 kg Physical Exam: No acute distress, alert and orient x3 Left lower extremity -Pulses 2+ distally -Compartments soft -Sensation grossly intact to L3-4-5 S1 -Motor grossly intact to EHL TA gastroc and quad Dressing clean dry and intact. Results Laboratory Results: 01/11/20 04:24 01/11/20 04:24 01/08/20 11:43 Hip - Left Gram Stain - Final 01/08/20 11:43 Hip - Left Wound Culture - Final Group B Beta Streptococcus No Anaerobic Organisms 01/08/20 11:43 Hip - Tissue (Surgical) Gram Stain - Final 01/08/20 11:43 Hip - Tissue (Surgical) Wound Culture - Final Group B Beta Streptococcus No Anaerobic Organisms Impressions: Lumbar Spine CT 01/06/20 13:35 IMPRESSION: Marked degenerative changes. No acute findings. Thoracic Spine MRI 01/06/20 20:25 IMPRESSION: 1. No acute findings. No epidural abscess. 2. Mild degenerative changes as described, with foraminal stenosis at several levels, but no significant central canal stenosis. Please correlate with distribution of clinical symptoms. Lumbar Spine MRI 01/06/20 20:26 IMPRESSION: 1. No evidence of abscess. There is a small amount of fluid within the leftward aspect of the L2-L3 disc space, likely due to reactive degenerative disease. No compelling evidence of spondylodiscitis is seen. 2. Moderate to advanced multilevel discogenic changes and facet arthropathy with associated spinal canal stenosis and neural foraminal stenosis as detailed above. Degenerative changes are exacerbated by moderately severe lumbar scoliosis. Please see the above report for details at each level. copyright 2011 [email or web address]- All Rights Reserved Guidance Fluoroscopy 01/07/20 00:00 IMPRESSION: DIAGNOSTIC ASPIRATION OF THE LEFT HIP JOINT ABOVE. Hip Aspiration/Injection 01/07/20 00:00 IMPRESSION: DIAGNOSTIC ASPIRATION OF THE LEFT HIP JOINT ABOVE. Lower Extremity MRI 01/07/20 00:00 IMPRESSION: 1. Abnormal left hemipelvis and hip. Marrow edema and deep soft tissue edema. In light of the history of septic arthritis and appearance of generalized inflammatory process, this is presumed cellulitis, myositis and osteomyelitis. Please correlate with recent diagnostic hip aspiration results. Note is made of loss of the joint space and flattening of the superior femoral head. This could be related to joint infection or subchondral fracture/AVN. Hip X-Ray 01/09/20 00:00 IMPRESSION: Expected postoperative changes left hip PICC Line Insertion 01/11/20 00:00 IMPRESSION: SUCCESSFUL PLACEMENT OF A 5 FR DUAL LUMEN 46 CM PICC IN THE LEFT BRACHIOCEPHALIC VEIN. Assessment & Plan - Diagnosis (1) Avascular necrosis of bone of left hip Is this a current diagnosis for this admission?: Yes (2) Septic arthritis of hip Qualifiers: Septic arthritis organism: streptococcal Laterality: left Qualified Code(s): M00.252 - Other streptococcal arthritis, left hip Is this a current diagnosis for this admission?: Yes Plan: Ceftriaxone x6 weeks PICC line placed May be discharged home when stable per medicine Weightbearing as tolerated left lower extremity Follow CBC CRP BMP per recommendation of infectious disease, weekly Keep dressing in place until seen in the office -Follow my office in approximately 7 to 10 days. - Time Time Spent with patient: Less than 15 minutes
[2020-01-12] MEDS: OXYCODONE-ACETAMINOPHEN 5-325 MG TABLET PO PRN ×2 (08:22→16:17)
[2020-01-12] MEDS: OXYCODONE HCL SR 10 MG TABLET PO SCH (09:34)
[2020-01-12] MEDS: AMLODIPINE BESYLATE 5 MG TABLET PO SCH (09:36)
[2020-01-12] MEDS: DOCUSATE SODIUM 100 MG CAPSULE PO SCH (09:36)
[2020-01-12] MEDS: DULOXETINE HCL 30 MG CAPSULE.DR PO SCH (09:36)
[2020-01-12] MEDS: CARVEDILOL 12.5 MG TABLET PO SCH (09:37)
[2020-01-12] MEDS: BUSPIRONE HCL 10 MG TABLET PO SCH (09:37)
[2020-01-12 14:41] VITALS: BP 183/123
[2020-01-12] MEDS ORDERED: CEFTRIAXONE 2 GM/D5W RTU 2 GM/50 ML RTUPB IV SCH (15:00)
--- NOTE | 2020-01-15 15:54 | PDOC DISCHARGE SUMMARY ---
Impression - Admit/DC Date/PCP Admission Date/Primary Care Provider: 01/07/20 00:42 CONNOR MISTRY PA-C Discharge Date: 01/12/20 - Discharge Diagnosis (1) Septic arthritis due to Streptococcus species Is this a current diagnosis for this admission?: Yes (2) Avascular necrosis of bone of left hip Is this a current diagnosis for this admission?: Yes (3) Gram-positive bacteremia Is this a current diagnosis for this admission?: Yes (4) Hypertension Is this a current diagnosis for this admission?: Yes (5) Narcotic dependency, continuous Is this a current diagnosis for this admission?: Yes (6) Sepsis Is this a current diagnosis for this admission?: Yes (7) Nausea and vomiting Is this a current diagnosis for this admission?: Yes (8) ROXANA (acute kidney injury) Is this a current diagnosis for this admission?: Yes - Additional Information Resuscitation Status: Full Code Discharge Diet: Cardiac Discharge Activity: Activity As Tolerated, Balance Activity w/Rest, Slowly Increase Activity Referrals: KRYSTYNA JACK MD [ACTIVE STAFF] - 01/14/20 10:30 am KORY BUSH JR, DO [ACTIVE PROVISIONAL STAFF] - 01/19/20 10:30 am Prescriptions: Carvedilol [Coreg 12.5 mg Tablet] 12.5 mg PO DAILY #30 tablet Naloxone HCl [Narcan] 4 mg NS ONCEP PRN #1 spray PRN Reason: overdose Amlodipine Besylate [Norvasc 5 mg Tablet] 5 mg PO DAILY #30 tablet Home Medications: Buspirone HCl [Buspar 10 mg Tablet] 10 mg PO BID 01/07/20 Dextromethorphan HBr/Quinidine [Nuedexta 20-10 mg Capsule] 1 cap PO DAILY 01/07/20 Duloxetine HCl [Cymbalta] 60 mg PO BID 01/07/20 Oxycodone HCl [Oxycontin] 20 mg PO Q12 01/07/20 Topiramate [Topamax 25 mg Tablet] 25 mg PO Q8 01/07/20 Trazodone HCl [Desyrel 50 mg Tablet] 50 mg PO QHS 01/07/20 Zolpidem Tartrate [Ambien 5 mg Tablet] 5 mg PO QHS 01/07/20 Acetaminophen [Tylenol 325 mg Tablet] 650 mg PO Q4HP PRN tablet 01/11/20 Amlodipine Besylate [Norvasc 5 mg Tablet] 5 mg PO DAILY #30 tablet 01/11/20 Carvedilol [Coreg 12.5 mg Tablet] 12.5 mg PO DAILY #30 tablet 01/11/20 Docusate Sodium [Colace 100 mg Capsule] 100 mg PO DAILY capsule 01/11/20 Naloxone HCl [Narcan] 4 mg NS ONCEP PRN #1 spray 01/11/20 Oxycodone HCl/Acetaminophen [Percocet 5-325 mg Tablet] 2 tab PO Q4HP PRN tablet 01/11/20 History of Present Illiness History of Present Illness: Per H&P by Dr. 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 Per the patient and his , there is no history of trauma. Patient had joint injections at his pain management physician office approximately 1 week ago including a steroid injection which they stated helped the patient's hip pain temporarily. Patient also had a testosterone shot in the superficial left hip on day of admission though he and his state this did not coincide with worsening pain as his pain was already becoming severe. Patient's states that he had a tooth pulled a few days prior to admission but the patient has not been complaining of pain in his mouth. Potential patient seeded his joint when he became briefly bacteremic during dental procedure. MRI of the thoracic and lumbar spine did not show any acute findings. MRI of the left hip was refused to be done by radiology department until tomorrow. X-ray of the left hip did not show any acute findings, only severe chronic joint degeneration. Patient's states patient has never been evaluated for inflammatory arthritis. Serologies ordered. Patient started on vancomycin/cefepime. Dr. Bush orthopedics consulted and he will consider tapping the patient's left hip for fluid tomorrow. Patient had a fever of 101.8 in the ED but no fevers prior to admission according to . Per , patient takes oxycodone and OxyContin at home. They do not know the dosages but will try to get them to us in the morning. Hospital Course Hospital Course: (1) Septic arthritis due to Streptococcus species Most likely source oral cavity. Patient had a tooth pulled about a week prior to presentation. Status post left hip arthrocentesis and I&D by orthopedic surgery. Blood culture and joint fluid positive for Streptococcus agalactiae. Infectious disease consulted. Upon review of MRI that is suggestive of possible osteomyelitis, have recommended 6 weeks course of therapy. Continue ceftriaxone 2 g daily . EOT 02/20/2020. Outpatient follow-up with orthopedic surgery. (2) Avascular necrosis of bone of left hip Likely chronic. Orthopedic surgery on board. Recommendations noted. Symptomatic management. Outpatient follow up with Dr. Bush in 10 days. (3) Gram-positive bacteremia Blood culture positive for Streptococcus agalactiae. Likely source oral cavity. Patient had a tooth removed a week prior to presentation. Repeat blood culture negative. Echocardiogram negative for vegetations. As per ID recommendation patient will need IV ceftriaxone 2 g daily for 6 weeks. Discharge planning consulted; will utilize the outpatient infusion clinic. (4) Hypertension Remains slightly elevated; overall improved. Continue Coreg 12.5 mg p.o. twice daily. Amlodipine 5 mg p.o. daily. Outpatient PCP follow up. (5) Narcotic dependency, continuous Due to chronic musculoskeletal pain. Has very high tolerance due to chronic opioid dependency. Discussed with patient's provider at [facility] pain management today. They advised that the patient should have plenty of remaining pills at home. They recommend continuing his OxyContin 20 mg twice daily; unchanged from previously prescribed. Recommend increasing Percocet 10/325 from every 6 hours to every 4 hours until the follow-up visit he has scheduled for 01/14/2020 at 10:30 AM. Outpatient PCP and pain management follow-up. (6) Sepsis Resolved. Afebrile. Leukocytosis has resolved. Most likely due to bacteremia and septic arthritis. Cultures positive for group B strep and a strep collected. Plan as per above. (7) Nausea and vomiting Resolved. (8) ROXANA (acute kidney injury) Resolved. Prerenal most likely due to sepsis due to infected left hip Physical Exam Vital Signs: Temp Pulse Resp BP Pulse Ox 97.9 F 85 18 183/123 H 97 01/12/20 14:39 01/12/20 14:39 01/12/20 14:39 01/12/20 14:39 01/12/20 14:39 General appearance: PRESENT: no acute distress, obese, well-developed, well- nourished Head exam: PRESENT: atraumatic, normocephalic Eye exam: PRESENT: conjunctiva pink, EOMI, PERRLA. ABSENT: scleral icterus Mouth exam: PRESENT: moist, tongue midline Respiratory exam: PRESENT: clear to auscultation johanna, symmetrical, unlabored, other - room air. ABSENT: rales, rhonchi, wheezes Cardiovascular exam: PRESENT: RRR. ABSENT: diastolic murmur, rubs, systolic murmur Pulses: PRESENT: normal dorsalis pedis pul Vascular exam: PRESENT: normal capillary refill Extremities exam: PRESENT: tenderness - left hip. ABSENT: calf tenderness, clubbing, pedal edema Musculoskeletal exam: PRESENT: ambulatory - w/ FWW, tenderness - chronic lower back pain Neurological exam: PRESENT: alert, awake, oriented to person, oriented to place, oriented to time, oriented to situation, CN II-XII grossly intact. ABSENT: motor sensory deficit Psychiatric exam: PRESENT: appropriate affect, normal mood. ABSENT: homicidal ideation, suicidal ideation Skin exam: PRESENT: dry, warm. ABSENT: cyanosis, rash Results Laboratory Results: WBC 9.8 10^3/uL (4.0-10.5) 01/11/20 04:24 RBC 4.87 10^6/uL (4.35-5.55) 01/11/20 04:24 Hgb 14.7 g/dL (13.5-17.0) 01/11/20 04:24 Hct 43.4 % (37.9-51.0) 01/11/20 04:24 MCV 89 fl (80-97) 01/11/20 04:24 MCH 30.1 pg (27.0-33.4) 01/11/20 04:24 MCHC 33.8 g/dL (32.0-36.0) 01/11/20 04:24 RDW 17.5 % (11.5-14.0) H 01/11/20 04:24 Plt Count 210 10^3/uL (150-450) 01/11/20 04:24 Lymph % (Auto) 6.3 % (13-45) L 01/10/20 03:56 [place] % (Auto) 9.5 % (3-13) 01/10/20 03:56 Eos % (Auto) 0.0 % (0-6) 01/10/20 03:56 Baso % (Auto) 0.2 % (0-2) 01/10/20 03:56 Absolute Neuts (auto) 12.1 10^3/uL (1.7-8.2) H 01/10/20 03:56 Absolute Lymphs (auto) 0.9 10^3/uL (0.5-4.7) 01/10/20 03:56 Absolute Monos (auto) 1.4 10^3/uL (0.1-1.4) 01/10/20 03:56 Absolute Eos (auto) 0.0 10^3/uL (0.0-0.6) 01/10/20 03:56 Absolute Basos (auto) 0.0 10^3/uL (0.0-0.2) 01/10/20 03:56 Total Counted 100 01/09/20 03:42 Seg Neutrophils % 84.0 % (42-78) H 01/10/20 03:56 Seg Neuts % (Manual) 92 % (42-78) H 01/09/20 03:42 Lymphocytes % (Manual) 3 % (13-45) L 01/09/20 03:42 Monocytes % (Manual) 5 % (3-13) 01/09/20 03:42 Eosinophils % (Manual) 0 % (0-6) 01/09/20 03:42 Basophils % (Manual) 0 % (0-2) 01/09/20 03:42 Abs Neuts (Manual) 14.6 10^3/uL (1.7-8.2) H 01/09/20 03:42 Abs Lymphs (Manual) 0.5 10^3/uL (0.5-4.7) 01/09/20 03:42 Abs Monocytes (Manual) 0.8 10^3/uL (0.1-1.4) 01/09/20 03:42 Absolute Eos (Manual) 0.0 10^3/uL (0.0-0.6) 01/09/20 03:42 Abs Basophils (Manual) 0.0 10^3/uL (0.0-0.2) 01/09/20 03:42 Platelet Comment ADEQUATE 01/09/20 03:42 Polychromasia SLIGHT 01/09/20 03:42 Poikilocytosis SLIGHT 01/09/20 03:42 Anisocytosis 1+ 01/09/20 03:42 Ovalocytes SLIGHT 01/09/20 03:42 ESR 8 mm/hr (0-20) 01/07/20 01:15 Sodium 130.2 mmol/L (137-145) L 01/11/20 04:24 Potassium 3.5 mmol/L (3.6-5.0) L 01/11/20 04:24 Chloride 98 mmol/L (98-107) 01/11/20 04:24 Carbon Dioxide 22 mmol/L (22-30) 01/11/20 04:24 Anion Gap 10 (5-19) 01/11/20 04:24 BUN 23 mg/dL (7-20) H 01/11/20 04:24 Creatinine 0.92 mg/dL (0.52-1.25) 01/11/20 04:24 Est GFR ( Amer) > 60 (>60) 01/11/20 04:24 Est GFR (MDRD) Non-Af > 60 (>60) 01/11/20 04:24 Glucose 92 mg/dL (75-110) 01/11/20 04:24 Lactic Acid 2.0 mmol/L (0.7-2.1) 01/06/20 20:30 Calcium 9.0 mg/dL (8.4-10.2) 01/11/20 04:24 Phosphorus 2.4 mg/dL (2.5-4.5) L 01/08/20 06:23 Magnesium 1.9 mg/dL (1.6-2.3) 01/11/20 04:24 Total Bilirubin 0.7 mg/dL (0.2-1.3) 01/11/20 04:24 Direct Bilirubin 0.2 mg/dL (0.0-0.4) 01/11/20 04:24 Neonat Total Bilirubin Not Reportable 01/11/20 04:24 Neonat Direct Bilirubin Not Reportable 01/11/20 04:24 Neonat Indirect Bili Not Reportable 01/11/20 04:24 AST 35 U/L (17-59) 01/11/20 04:24 ALT 43 U/L (<50) 01/11/20 04:24 Alkaline Phosphatase 59 U/L (38-126) 01/11/20 04:24 C-Reactive Protein 229.0 mg/L (<10.0) H 01/10/20 03:56 Total Protein 5.3 g/dL (6.3-8.2) L 01/11/20 04:24 Albumin 2.8 g/dL (3.5-5.0) L 01/11/20 04:24 Urine Color YELLOW 01/06/20 14:48 Urine Appearance CLEAR 01/06/20 14:48 Urine pH 5.0 (5.0-9.0) 01/06/20 14:48 Ur Specific [place] 1.016 01/06/20 14:48 Urine Protein NEGATIVE mg/dL (NEGATIVE) 01/06/20 14:48 Urine Glucose (UA) NEGATIVE mg/dL (NEGATIVE) 01/06/20 14:48 Urine Ketones NEGATIVE mg/dL (NEGATIVE) 01/06/20 14:48 Urine Blood NEGATIVE (NEGATIVE) 01/06/20 14:48 Urine Nitrite NEGATIVE (NEGATIVE) 01/06/20 14:48 Urine Bilirubin NEGATIVE (NEGATIVE) 01/06/20 14:48 Urine Urobilinogen NEGATIVE mg/dL (<2.0) 01/06/20 14:48 Ur Leukocyte Esterase NEGATIVE (NEGATIVE) 01/06/20 14:48 Urine WBC (Auto) 0 /HPF 01/06/20 14:48 Urine RBC (Auto) 1 /HPF 01/06/20 14:48 Urine Mucus (Auto) RARE /LPF 01/06/20 14:48 Urine Ascorbic Acid NEGATIVE (NEGATIVE) 01/06/20 14:48 Fluid Type SYNOVIAL 01/07/20 14:54 Fluid Type SYNOVIAL 01/07/20 14:54 Fluid Source KNEE 01/07/20 14:54 Fluid Color RED 01/07/20 14:54 Fluid Appearance TURBID 01/07/20 14:54 Fluid Viscosity HIGHLY VISCOUS 01/07/20 14:54 Fluid WBC 71402 /uL 01/07/20 14:54 Fluid RBC 484671 /uL 01/07/20 14:54 Fluid Seg Neutrophils 88 % 01/07/20 14:54 Fluid Lymphocytes 9 % 01/07/20 14:54 Fluid Monocytes 3 % 01/07/20 14:54 Fluid Eosinophils 0 % 01/07/20 14:54 Fluid Basophils 0 % 01/07/20 14:54 Fluid Crystals NONE OBSERVED 01/07/20 14:54 Fluid Crystal Source 01/07/20 14:54 Ca Pyrophosphate Cryst EXTRACELLULAR 01/07/20 14:54 Synov Monosodium Urate NONE OBSERVED 01/07/20 14:54 Stl C. Difficile GDH Ag NEGATIVE (NEGATIVE) 01/08/20 07:35 Stl C.difficile Tox A&B NEGATIVE (NEGATIVE) 01/08/20 07:35 Time Trough Drawn 212401/08/20 21:25 Vancomycin Trough 8.2 ug/mL (5.0-20.0) 01/08/20 21:25 Rheumatoid Factor 11.7 IU/mL (<12.0) 01/07/20 06:44 CCP IgG/IgA Ab 5 units (0-19) 01/07/20 06:44 SS-A Antibody <0.2 AI (0.0-0.9) 01/07/20 06:44 SS-B Antibody <0.2 AI (0.0-0.9) 01/07/20 06:44 SARS-CoV-2 (PCR) NEGATIVE (NEGATIVE) 01/08/20 08:30 Impressions: Lumbar Spine CT 01/06/20 13:35 IMPRESSION: Marked degenerative changes. No acute findings. Thoracic Spine MRI 01/06/20 20:25 IMPRESSION: 1. No acute findings. No epidural abscess. 2. Mild degenerative changes as described, with foraminal stenosis at several levels, but no significant central canal stenosis. Please correlate with distribution of clinical symptoms. Lumbar Spine MRI 01/06/20 20:26 IMPRESSION: 1. No evidence of abscess. There is a small amount of fluid within the leftward aspect of the L2-L3 disc space, likely due to reactive degenerative disease. No compelling evidence of spondylodiscitis is seen. 2. Moderate to advanced multilevel discogenic changes and facet arthropathy with associated spinal canal stenosis and neural foraminal stenosis as detailed above. Degenerative changes are exacerbated by moderately severe lumbar scoliosis. Please see the above report for details at each level. copyright 2010 [employer]- All Rights Reserved Hip X-Ray 01/06/20 20:47 IMPRESSION: Severe arthritic changes in the left hip. Etiology may include congenital, degenerative and erosive arthritis. Guidance Fluoroscopy 01/07/20 00:00 IMPRESSION: DIAGNOSTIC ASPIRATION OF THE LEFT HIP JOINT ABOVE. Hip Aspiration/Injection 01/07/20 00:00 IMPRESSION: DIAGNOSTIC ASPIRATION OF THE LEFT HIP JOINT ABOVE. Lower Extremity MRI 01/07/20 00:00 IMPRESSION: 1. Abnormal left hemipelvis and hip. Marrow edema and deep soft tissue edema. In light of the history of septic arthritis and appearance of generalized inflammatory process, this is presumed cellulitis, myositis and osteomyelitis. Please correlate with recent diagnostic hip aspiration results. Note is made of loss of the joint space and flattening of the superior femoral head. This could be related to joint infection or subchondral fracture/AVN. Hip X-Ray 01/09/20 00:00 IMPRESSION: Expected postoperative changes left hip PICC Line Insertion 01/11/20 00:00 IMPRESSION: SUCCESSFUL PLACEMENT OF A 5 FR DUAL LUMEN 46 CM PICC IN THE LEFT BRACHIOCEPHALIC VEIN. Plan Plan of Treatment: Patient is discharged home in stable condition. He is advised to follow-up with his primary care provider within 1 week. Follow-up with Dr. Bush in 10 days. Follow-up with pain management provider, as scheduled, in 3 days. He will be utilizing outpatient infusion clinic for his daily ceftriaxone infusions. Discharge planning is continuing to work with home health agencies to arrange for home infusion. He is advised to take his medications as prescribed. He is instructed to return to the emergency department, as needed, for concerning symptoms. Time Spent: Greater than 30 Minutes Stroke Is this a Stroke Patient?: No Acute Heart Failure Is this a Heart Failure Patient?: No
== END 2020-01-12 17:00 | disposition home health service (06) | DRG 480 ==
LOC: ER 12:37 → EH 01-07 00:42 → 4N 01-07 02:45
PROVIDERS: ADMIT Internal Medicine; ATTEND Registered Nurse
PROC: 0SBB0ZZ Excision of Left Hip Joint, Open Approach (ICD-10-PCS; principal; 2020-01-08 11:00)
PROC: 02HV33Z Insertion of Infusion Device into Superior Vena Cava, Percutaneous Approach (ICD-10-PCS; 2020-01-11)
PROC: B548ZZA Ultrasonography of Superior Vena Cava, Guidance (ICD-10-PCS; 2020-01-11)
DX: M00.252 Other streptococcal arthritis, left hip (principal); A41.9 Sepsis, unspecified organism; R65.20 Severe sepsis without septic shock; M87.059 Idiopathic aseptic necrosis of unspecified femur; N17.9 Acute kidney failure, unspecified; F11.20 Opioid dependence, uncomplicated; M86.9 Osteomyelitis, unspecified; G89.4 Chronic pain syndrome; I10 Essential (primary) hypertension; G31.84 Mild cognitive impairment of uncertain or unknown etiology; B95.0 Streptococcus, group A, as the cause of diseases classified elsewhere; Z20.828 Contact with and (suspected) exposure to other viral communicable diseases; Z86.61 Personal history of infections of the central nervous system; Z98.818 Other dental procedure status
CPT/HCPCS: 01210; 20610; 36415; 36573; 72131; 72157; 72158; 77002; 80048; 80053; 80202; 81001; 82565; 83605; 83735; 84100; 85025; 85027; 85652; 86140; 86200; 86235; 86431; 87040; 87070; 87075; 87077; 87150; 87186; 87205; 87324; 87449; 87635; 89050; 89060; 93005; 93010; 93306; 96365; 96366; 96367; 96368; 96375; 99140; 99285; A9576; C9359; C9803; J0330; J0690; J0692; J0696; J1100; J1170; J1642; J1644; J1885; J2250; J2270; J2405; J2550; J2704; J3010; J3370; J3490; J7030; J7060; J7120

== ENCOUNTER → 2020-02-29 | Outpatient (CLI) | payer MEDICARE, OTHER ==
[2020-02-29 17:37] LABS: ABSOLUTE EOSINOPHILS # (AUTO) 0.1 10^3/uL (0.0-0.6); ABSOLUTE LYMPHOCYTES (AUTO) 1.5 10^3/uL (0.5-4.7); ABSOLUTE MONOCYTES (AUTO) 0.3 10^3/uL (0.1-1.4); ABSOLUTE NEUT (AUTO) 4.1 10^3/uL (1.7-8.2); BASOPHILS % (AUTO) 0.3 % (0-2); HEMATOCRIT 35.3 % (37.9-51.0); HEMOGLOBIN 11.7 g/dL (13.5-17.0); LYMPHOCYTES % (AUTO) 24.3 % (13-45); MEAN CORPUSCULAR HGB CONC 33.3 g/dL (32.0-36.0); MEAN CORPUSCULAR VOLUME 84 fl (80-97); MONOCYTES % (AUTO) 5.2 % (3-13); PLATELET COUNT 488 10^3/uL (150-450); RED BLOOD COUNT 4.19 10^6/uL (4.35-5.55); RED CELL DISTRIBUTION WIDTH 17.1 % (11.5-14.0); SEGMENTED NEUTROPHILS % (AUTO) 68.2 % (42-78); TOTAL CELLS COUNTED % (AUTO) 100 %
[2020-02-29 17:48] LABS: APPEARANCE,URINE CLEAR; BILIRUBIN,URINE NEGATIVE (NEGATIVE); COLOR,URINE YELLOW; GLUCOSE, URINE NEGATIVE (NEGATIVE); KETONES,URINE NEGATIVE (NEGATIVE); LEUKOCYTE ESTERASE,URINE NEGATIVE (NEGATIVE); NITRITE,URINE NEGATIVE (NEGATIVE); PROTEIN,URINE 30 mg/dL (NEGATIVE); URINE SPECIFIC GRAVITY 1.018; UROBILINOGEN,URINE NEGATIVE mg/dL (<2.0)
[2020-02-29 18:10] LABS: ALBUMIN 3.6 g/dL (3.5-5.0); ANION GAP 12 (5-19); BLOOD UREA NITROGEN 18 mg/dL (7-20); C-REACTIVE PROTEIN 79.3 mg/L (<10.0); CALCIUM 9.4 mg/dL (8.4-10.2); CARBON DIOXIDE 27 mmol/L (22-30); CHLORIDE 96 mmol/L (98-107); GLUCOSE 111 mg/dL (75-110); POTASSIUM 5.1 mmol/L (3.6-5.0)
[2020-02-29 18:17] LABS: ERYTHROCYTE SEDIMENTATION RATE 90 mm/hr (0-20)
--- NOTE | 2020-03-01 00:43 | EKG REPORT ---
SEVERITY:- BORDERLINE ECG - SINUS TACHYCARDIA WITH APCs : Confirmed by: Haley Copeland 01-Mar-2020 00:42:59
== END ==
LOC: OD 16:30
PROVIDERS: ATTEND Orthopaedic Surgery
DX: Z01.810 Encounter for preprocedural cardiovascular examination (principal); Z01.811 Encounter for preprocedural respiratory examination; Z01.812 Encounter for preprocedural laboratory examination
CPT/HCPCS: 36415; 80048; 81001; 82040; 82306; 83036; 85025; 85652; 86140; 86850; 86900; 86901; 87070; 93005; 93010

== ENCOUNTER 2020-03-06 10:25 | Inpatient (IN) | payer MEDICARE, OTHER ==
--- NOTE | 2020-03-01 12:32 | RADIOLOGY REPORT (SQ) ---
EXAM DESCRIPTION: CHEST 2 VIEWS IMAGES COMPLETED DATE/TIME: 03/01/2020 10:20 am REASON FOR STUDY: PREOP COMPARISON: None. EXAM PARAMETERS: NUMBER OF VIEWS: two views TECHNIQUE: Digital Frontal and Lateral radiographic views of the chest acquired. RADIATION DOSE: NA LIMITATIONS: Positioning. FINDINGS: LUNGS AND PLEURA: No opacities, masses or pneumothorax. No pleural effusion. MEDIASTINUM AND HILAR STRUCTURES: No masses or contour abnormalities. HEART AND VASCULAR STRUCTURES: Heart normal size. No evidence for failure. BONES: No acute findings. HARDWARE: None in the chest. OTHER: No other significant finding. IMPRESSION: NO ACUTE RADIOGRAPHIC FINDING IN THE CHEST. TECHNICAL DOCUMENTATION: JOB ID: [id number] 2010 [employer]- All Rights Reserved Reading location - IP/workstation name: [email or web address]
[~2020-03-06 10:25] MED LIST: ACETAMINOPHEN 325 MG TABLET PO PRN; CEFAZOLIN 2 GM/D5W RTU 2 GM/50 ML RTUPB IV PRN; CELECOXIB 200 MG CAPSULE PO PRN; FENTANYL CITRATE INJ/PF 100 MCG/2 ML AMPUL ONE; GABAPENTIN 100 MG CAPSULE PO PRN; MIDAZOLAM 2 MG/2 ML INJ ONE; ONDANSETRON HCL INJ/PF 4 MG/2 ML SDV ONE; OXYCODONE HCL SR 10 MG TABLET PO PRN; PANTOPRAZOLE SODIUM 20 MG TABLET.DR PO PRN; PROPOFOL INJ 200 MG/20 ML VIAL IV ONE; SCOPOLAMINE HYDROBROMIDE 1.5 MG PATCH.TD72 TD PRN; TRANEXAMIC ACID INJ/PF 1,000 MG/10 ML SDV IV PRN; TRANEXAMIC ACID INJ/PF 1,000 MG/10 ML SDV ONE; VANCOMYCIN HCL 1,000 MG in DEXTROSE 5%-WATER 250 ML IV PRN
[2020-03-06] MEDS ORDERED: EPINEPHRINE INJ/PF 1 MG/1 ML AMPULE ONE (12:02)
[2020-03-06] MEDS ORDERED: EPHEDRINE SULFATE INJ 50 MG/1 ML AMPULE ONE (12:02)
[2020-03-06] MEDS ORDERED: VANCOMYCIN HCL INJ 1000 MG VIAL ONE ×4 (12:07→14:58)
[2020-03-06] MEDS ORDERED: BUPIVACAINE HCL 0.25 % INJ/PF (2.5 MG/1 ML) 30 ML VIAL ONE (12:07)
[2020-03-06] MEDS ORDERED: LIDOCAINE 1% INJ-PF (10 MG/ML) 30 ML SDV ONE (12:08)
[2020-03-06] MEDS ORDERED: CEFAZOLIN 2 GM/D5W RTU 2 GM/50 ML RTUPB IV ONE (12:08)
[2020-03-06] MEDS ORDERED: KETOROLAC TROMETHAMINE INJ/PF 30 MG/1 ML SDV ONE (12:08)
[2020-03-06] MEDS ORDERED: SCOPOLAMINE HYDROBROMIDE 1.5 MG PATCH.TD72 ONE (12:09)
[2020-03-06] MEDS ORDERED: OXYCODONE HCL SR 10 MG TABLET PO ONE (12:09)
[2020-03-06] MEDS ORDERED: CELECOXIB 200 MG CAPSULE ONE (12:09)
[2020-03-06] MEDS ORDERED: PANTOPRAZOLE SODIUM 20 MG TABLET.DR PO ONE ×2 (12:10→16:45)
[2020-03-06] MEDS ORDERED: ONDANSETRON HCL INJ/PF 4 MG/2 ML SDV ONE (12:10)
[2020-03-06] MEDS ORDERED: GABAPENTIN 100 MG CAPSULE ONE (12:10)
[2020-03-06] MEDS ORDERED: ACETAMINOPHEN 325 MG TABLET ONE (12:19)
[2020-03-06] MEDS ORDERED: ONDANSETRON HCL INJ/PF 4 MG/2 ML SDV IV PRN (13:01)
[2020-03-06] MEDS ORDERED: DIPHENHYDRAMINE HCL 50 MG/ML VIAL IV PRN (13:01)
[2020-03-06] MEDS ORDERED: MORPHINE SULFATE 10 MG/ML INJ IV PRN ×3 (13:01→16:15)
[2020-03-06] MEDS ORDERED: MEPERIDINE HCL/PF INJ 25 MG/1 ML DISP.SYRIN IV PRN (13:01)
[2020-03-06] MEDS ORDERED: FENTANYL CITRATE INJ/PF 100 MCG/2 ML AMPUL IV PRN ×3 (13:01)
[2020-03-06] MEDS ORDERED: PROMETHAZINE HCL INJ 25 MG/1 ML VIAL IV PRN ×2 (13:01)
[2020-03-06] MEDS ORDERED: VANCOMYCIN HCL INJ 1000 MG VIAL TP ONE (14:00)
[2020-03-06] MEDS ORDERED: FENTANYL CITRATE INJ/PF 100 MCG/2 ML AMPUL ONE (15:48)
[2020-03-06] MEDS ORDERED: OXYCODONE HCL IR 5 MG TABLET PO PRN ×2 (16:15)
[2020-03-06] MEDS ORDERED: NORMAL SALINE 1000 ML 1,000 ML IV ONE (16:15)
[2020-03-06] MEDS ORDERED: TRAMADOL HCL 50 MG TABLET PO PRN (16:15)
[2020-03-06] MEDS ORDERED: DIPHENHYDRAMINE HCL 25 MG CAPSULE PO PRN (16:15)
[2020-03-06] MEDS ORDERED: TRANEXAMIC ACID INJ/PF 1,000 MG/10 ML SDV IV ONE (16:15)
[2020-03-06] MEDS ORDERED: DOCUSATE SODIUM 100 MG CAPSULE PO PRN (16:15)
[2020-03-06] MEDS ORDERED: ONDANSETRON 4 MG TAB.RAPDIS PO PRN (16:15)
[2020-03-06] MEDS ORDERED: NALOXONE HCL 4 MG NASL PRN (16:22)
[2020-03-06] MEDS ORDERED: OXYCODONE HCL IR 5 MG TABLET ONE (16:23)
[2020-03-06] MEDS ORDERED: MORPHINE SULFATE 10 MG/ML INJ ONE (16:23)
[2020-03-06] MEDS ORDERED: DIPHENHYDRAMINE HCL 50 MG/ML VIAL ONE (16:38)
[2020-03-06] MEDS ORDERED: DEXAMETHASONE SOD PHOS INJ 10 MG/1 ML VIAL IV ONE (16:45)
--- NOTE | 2020-03-06 17:33 | Operative Report ---
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 Femoral has been sent for pathology COMPLICATIONS: None ESTIMATED BLOOD LOSS: 250 cc PROCEDURE: The patient has had increasing severe left hip pain with any attempted range of motion. He has become dependent upon a wheelchair with unbearable pain and inability to ambulate. This is progressed since he has completed his postoperative antibiotics that he was on for 6 weeks status post his first left hip I&D for [place] hip septic arthritis. He saw me in the office recently and was found to have elevated ESR and CRP. We scheduled him for repeat I&D and implantation of antibiotic spacer. The patient was brought in the operating suite and laid supine on the operating table. Preoperatively he was given 1 g of vancomycin and 2 g Ancef. The left lower extremity was prepped and draped in standard sterile fashion. The prior incision was marked out. A timeout was performed. Incision was made over the prior incision and extended slightly proximally and distally. Careful dissection was carried through the subcutaneous tissue and down to fascia. Upon reaching fascia which was slightly scarred from the prior surgery, I was able to reflect this and dissect over the T FL leaving this intact. Upon entering the fascia more medial to the T FL we immediately encountered gross purulence. Cultures were taken. This was then irrigated substantially with dilute Betadine solution. This tracked somewhat distal and we attempted to evacuate any potential purulence prior to moving forward. Upon evacuation and irrigation, we proceeded to carry our dissection more medially along the intertrochanteric ridge. We entered the hip capsule and again encountered purulence. I sent cultures via culture swab as well as gross specimen. The femoral neck was carefully exposed and retractors were placed in order to protect the neck for our upcoming neck cut. The capsule was tenuous from his prior surgery and did not require incision but was able to be reflected off with a Dalal. The retractors were replaced and we performed a neck cut along the intertrochanteric ridge. The femoral head was then removed with a corkscrew and sent hole to pathology. I proceeded to remove all nonviable appearing soft tissue. Some of this was placed in a specimen cup and sent for culture. I continued my debridement throughout the periphery of the wound attempting to remove any synovium that was unhealthy in appearance and that I could safely excised. The acetabulum was exposed with 3 retractors in atraumatic fashion. I reamed up, gently increasing her reamer size without attempting to remove much bone and preserve as much bone stock as possible. I reamed through the superficial cartilage and attempted to achieve some punctate bleeding bone throughout the periphery of the acetabulum without removing any further excess bone. After doing this I remove the remaining soft tissue from the cotyloid fossa as well as the labrum and any other tissue I could safely excised. The last reamer used was a size 60 however due to the patient's pathology the acetabulum was slightly aspherical and a 56 trial had good stability and appeared to be a good fit. Throughout this process the wound was irrigated both to achieve visualization as well as to persistently evacuate debrided tissue as we continued through the procedure. We then turned our attention to the proximal femur. Releases were performed until the femur was easily exposed with a femoral elevator. I reamed initially followed by broaching. Preoperatively I had determined that a size of 15 G 21 spacer stem nearly approximated a size 12 secure fit. I broached up until we achieved a size 13 broach. We proceeded to select the size 15 mold and injected it with cement consisting of 3 g of Ancef per 40 g of cement. To clarify, the cement mixture itself, is preloaded with 1 g and we added to her back. While we were waiting for the cement to cure, I continue to debride the wound as well as soak the wound both in a Betadine soaked it was left for 2 minutes followed by an irrisept soak that was left for 2 minutes. Upon unpacking the cured stem, we prepared it for implantation by removing excess cement. I then placed it in the femur and it was slightly snug. I broached up to a 14 and after this the stem impacted well. I reduced this into the acetabulum and this achieved appropriate leg length as well as stability throughout range of motion. We then evaluated the wound for any potential bleeders. These were then cauterized. We irrigated the wound again. 1 g of vancomycin powder was then applied to the wound and packed some of this into the area that was extra-articular and medial and distal to the T FL that we had initially encountered. I then proceeded to sew up the deep fascia with #2 PDS Quill. Local anesthetic was then injected into the hip joint and surrounding wound. Following this a 2 oh Quill was used in the dermis followed by a running 2-0 subcuticular Quill. A Prevena wound VAC was then applied. The patient was then awake from anesthesia and transferred to PACU in stable condition.
[2020-03-06] MEDS ORDERED: (PENDING PHARMACY ID) (Duloxetine Hcl [Cymbalta] 60 MG Capsule.Dr) PO SCH (18:00)
[2020-03-06] MEDS: DULOXETINE HCL 30 MG CAPSULE.DR PO SCH (19:20)
[2020-03-06] MEDS: BUSPIRONE HCL 10 MG TABLET PO SCH (19:20)
[2020-03-06] MEDS: ACETAMINOPHEN 325 MG TABLET PO SCH ×2 (19:20→23:29)
--- NOTE | 2020-03-06 19:38 | RADIOLOGY REPORT (SQ) ---
EXAM DESCRIPTION: HIP LEFT AP/LATERAL IMAGES COMPLETED DATE/TIME: 03/06/2020 6:09 pm REASON FOR STUDY: post op M16.12 UNILATERAL PRIMARY OSTEOARTHRITIS, LEFT HIP COMPARISON: None. NUMBER OF VIEWS: Two views. TECHNIQUE: AP pelvis and additional frog legview of the left hip. LIMITATIONS: None. FINDINGS: Postoperative images show left knee hemiarthroplasty in good position. IMPRESSION: Left knee hemiarthroplasty. Refer to operative note for further information. TECHNICAL DOCUMENTATION: JOB ID: [id number] 2010 [employer]- All Rights Reserved Reading location - IP/workstation name: [email or web address]
[2020-03-06] MEDS: GABAPENTIN 100 MG CAPSULE PO SCH (21:05)
[2020-03-06] MEDS: OXYCODONE HCL SR 10 MG TABLET PO SCH (21:06)
[2020-03-06] MEDS: ZOLPIDEM TARTRATE 5 MG TABLET PO SCH (21:07)
[2020-03-06] MEDS: TRAZODONE HCL 50 MG TABLET PO SCH (21:07)
[2020-03-06] MEDS: KETOROLAC TROMETHAMINE INJ/PF 30 MG/1 ML SDV IV SCH (21:07)
[2020-03-06] MEDS: TOPIRAMATE 25 MG TABLET PO SCH (21:21)
[2020-03-06] MEDS: CEFAZOLIN SODIUM 2 GM in DEXTROSE 5%-WATER 100 ML IV SCH (21:47)
[2020-03-06] MEDS ORDERED: CEFAZOLIN 2 GM/D5W RTU 2 GM/50 ML RTUPB IV SCH (22:00)
[2020-03-06] MEDS ORDERED: OXYCODONE HCL 20 MG PO SCH (22:00)
[2020-03-07] MEDS: CEFAZOLIN SODIUM 2 GM in DEXTROSE 5%-WATER 100 ML IV SCH ×2 (05:36→14:55)
[2020-03-07] MEDS: ACETAMINOPHEN 325 MG TABLET PO SCH ×4 (05:36→23:37)
[2020-03-07] MEDS: DULOXETINE HCL 30 MG CAPSULE.DR PO SCH ×2 (05:36→17:47)
[2020-03-07] MEDS: TOPIRAMATE 25 MG TABLET PO SCH ×3 (05:37→21:00)
[2020-03-07] MEDS: KETOROLAC TROMETHAMINE INJ/PF 30 MG/1 ML SDV IV SCH ×3 (05:37→21:00)
[2020-03-07] MEDS: OXYCODONE HCL IR 5 MG TABLET PO PRN ×3 (05:54→19:43)
[2020-03-07] MEDS ORDERED: [UNRECOGNIZED DRUG - OTHER] PO SCH (10:00)
[2020-03-07] MEDS ORDERED: DEXTROMETHORPHAN PO SCH (10:00)
[2020-03-07] MEDS ORDERED: QUINIDINE PO SCH (10:00)
[2020-03-07] MEDS: POLYETHYLENE GLYCOL 3350 POWDER 17 GM/1 PACKET PO SCH (10:08)
[2020-03-07] MEDS: OXYCODONE HCL SR 10 MG TABLET PO SCH ×2 (10:09→21:00)
[2020-03-07] MEDS: AMLODIPINE BESYLATE 5 MG TABLET PO SCH (10:10)
[2020-03-07] MEDS: BUSPIRONE HCL 10 MG TABLET PO SCH ×2 (10:11→17:46)
[2020-03-07] MEDS: DOCUSATE SODIUM 100 MG CAPSULE PO SCH (10:11)
[2020-03-07] MEDS: GABAPENTIN 100 MG CAPSULE PO SCH ×2 (10:11→20:59)
[2020-03-07] MEDS: CELECOXIB 200 MG CAPSULE PO SCH (10:12)
[2020-03-07] MEDS: CARVEDILOL 12.5 MG TABLET PO SCH (10:12)
[2020-03-07] MEDS: ASPIRIN 325 MG TABLET PO SCH (10:12)
--- NOTE | 2020-03-07 16:19 | Progress Note ---
Provider Note Provider Note: [facility] teleconsultation. Patient not examined. Chart reviewed. The patient is a 69-year-old male with a history of chronic pain who was admitted back in December with left hip septic arthritis due to group B strep after an outpatient steroid injection in this joint approximately 1 week prior to presentation. He underwent an I&D by orthopedic surgery and blood and surgical cultures were all positive for group B strep. His MRI at that time was suggestive of possible osteomyelitis and he was recommended to complete 6 weeks of ceftriaxone 2 g daily with the end of therapy being February 18, which he completed. He is now readmitted by orthopedics given persistent pain that has left him wheelchair-bound. He underwent a left hip I&D with antibiotic spacer placement on 03/06 and cultures were taken. There was gross purulence. These cultures are no growth to date at 1 day. I count is normal at 6, ESR of 90, creatinine of 0.89, CRP is 79. Assessment/recommendations: 1. Recurrent [place] left hip septic arthritis initially due to group B strep and presumed this to be the driving organism for his relapse. From a microbiology perspective he should not have recurred, but it is possible that he needed more debridement. Cultures may end up being negative given recent completion of parenteral antibiotic therapy 02/18. For now, would place the patient on penicillin G 24,000,000 units continuous infusion per day. I suspect he will need another 6-week course. I will follow for final recommendations.
[2020-03-07] MEDS ORDERED: PENICILLIN G-K 5 MILLION UNIT VIAL IV SCH (17:15)
--- NOTE | 2020-03-07 17:27 | PDOC PROGRESS REPORT ---
Subjective Date:: 03/07/20 Subjective:: Patient reporting some improved pain this morning. He still has his back pain t hat is chronic and he is on constant pain management for. He denies any overnight fevers. No other acute events overnight. Reason For Visit: LEFT [place] HIP SEPTIC ARTHRITIS Physical Exam Vital Signs: Temp Pulse Resp BP Pulse Ox 98.3 F 90 18 110/57 L 100 03/07/20 10:00 03/07/20 09:58 03/07/20 09:58 03/07/20 09:58 03/07/20 09:58 Intake & Output 03/06/20 03/07/20 03/08/20 06:59 06:59 06:59 Intake Total 3209 100 Output Total 675 Balance 2534 100 Weight 77.5 kg Physical Exam: No acute distress, alert and x3 Left lower extremity -Pulses 2+ distally -Compartments soft -Sensation grossly intact to L3-4-5 S1 -Motor grossly intact to EHL TA gastroc and quad Dressing clean dry and intact, no output in the wound VAC. Results Impressions: Chest X-Ray 03/01/20 09:57 IMPRESSION: NO ACUTE RADIOGRAPHIC FINDING IN THE CHEST. Hip X-Ray 03/06/20 00:00 IMPRESSION: Left knee hemiarthroplasty. Refer to operative note for further information. Assessment & Plan - Diagnosis (1) Left hip septic arthritis Is this a current diagnosis for this admission?: Yes Plan: Postoperative day #1 status post left hip hemiarthroplasty with a Prostalac spacer Suggestion was penicillin G for postoperative antibiotics by kendra saunders. The patient does have a allergy to ampicillin however I do spoke with his who explains that that has not happened recently and when it did happen it was not associated with any substantial swelling or throat closing but rather simply a red tongue. We will trial penicillin G while he is in house and if the patient has substantial problems we will switch antibiotics as needed. Patient is 50% weightbearing left lower extremity Continue wound VAC until seen in the office Patient is to follow-up in the office with me in approximately 10 days He is to start aspirin daily x6 weeks for postoperative DVT prophylaxis. - Time Time Spent with patient: Less than 15 minutes
[2020-03-07] MEDS: ZOLPIDEM TARTRATE 5 MG TABLET PO SCH (20:59)
[2020-03-07] MEDS: TRAZODONE HCL 50 MG TABLET PO SCH (20:59)
[2020-03-07] MEDS: ZOLPIDEM TARTRATE 5 MG TABLET PO PRN (21:05)
[2020-03-07] MEDS: PENICILLIN POTASSIUM IV PRN ×2 (23:38)
[2020-03-07] MEDS: WATER IV PRN ×2 (23:38)
[2020-03-07] MEDS: DEXTROSE 5% IV PRN ×2 (23:38)
[2020-03-08] MEDS: OXYCODONE HCL IR 5 MG TABLET PO PRN ×2 (05:00→06:58)
[2020-03-08] MEDS: TOPIRAMATE 25 MG TABLET PO SCH ×4 (05:01→21:51)
[2020-03-08] MEDS: DULOXETINE HCL 30 MG CAPSULE.DR PO SCH ×3 (05:01→17:57)
[2020-03-08] MEDS: ACETAMINOPHEN 325 MG TABLET PO SCH ×4 (05:01→17:56)
--- NOTE | 2020-03-08 08:27 | PDOC PROGRESS REPORT ---
Subjective Date:: 03/08/20 Subjective:: Patient reports good pain control this AM. He did not work well with PT per rep orts of nursing staff yesterday. He has no new complaints or fevers. No acute events overnight. Reason For Visit: LEFT [place] HIP SEPTIC ARTHRITIS Physical Exam Vital Signs: Temp Pulse Resp BP Pulse Ox 98.0 F 79 17 101/48 L 95 03/07/20 22:00 03/07/20 20:37 03/07/20 20:37 03/07/20 20:37 03/07/20 20:37 Intake & Output 03/07/20 03/08/20 03/09/20 06:59 06:59 06:59 Intake Total 3209 1850 Output Total 675 950 Balance 2534 900 Weight 77.5 kg 77.4 kg Physical Exam: NAD, AOX3 Left lower extremity -Pulses 2+ distally -Compartments soft -Sensation grossly intact to L3-4-5 S1 -Motor grossly intact to EHL TA gastroc and quad - Wound vac in place without any current drainage. Results Impressions: Chest X-Ray 03/01/20 09:57 IMPRESSION: NO ACUTE RADIOGRAPHIC FINDING IN THE CHEST. Hip X-Ray 03/06/20 00:00 IMPRESSION: Left knee hemiarthroplasty. Refer to operative note for further information. Assessment & Plan - Diagnosis (1) Left hip septic arthritis Is this a current diagnosis for this admission?: Yes Plan: - Awaiting final cultures at this time. - ID recommendation is Penicillin G given his prior cultures. He has an ampicillin allergy. I spoke with his who explained it was not a systemic allergy and that he tongue got red but did not swell and he had no other symptoms. We have proceeded to give Pen G overnight without any symptoms. The plan will be to continue with this therapy for the next 6 weeks unless cultures indicate otherwise. - 50% WB LLE - Keep wound vac to suction, charged and in place until seen in my office 7-10 days post op -Follow-up with Dr. Jono Bush, orthopedic surgeon at [facility] for surgery, in 10 days. Call for an appointment. . [address], [place] [address] - PICC line to be placed today - Will likely be discharged home tomorrow pending further culture results and PT evaluation - Time Time Spent with patient: Less than 15 minutes
[2020-03-08] MEDS: GABAPENTIN 100 MG CAPSULE PO SCH ×2 (11:15→21:51)
[2020-03-08] MEDS: BUSPIRONE HCL 10 MG TABLET PO SCH ×2 (11:15→17:57)
[2020-03-08] MEDS: DOCUSATE SODIUM 100 MG CAPSULE PO SCH (11:15)
[2020-03-08] MEDS: OXYCODONE HCL SR 10 MG TABLET PO SCH ×2 (11:16→21:51)
[2020-03-08] MEDS: CELECOXIB 200 MG CAPSULE PO SCH (11:17)
[2020-03-08] MEDS: POLYETHYLENE GLYCOL 3350 POWDER 17 GM/1 PACKET PO SCH (11:19)
[2020-03-08] MEDS: CARVEDILOL 12.5 MG TABLET PO SCH (11:28)
[2020-03-08] MEDS: ASPIRIN 325 MG TABLET PO SCH (11:29)
[2020-03-08] MEDS: AMLODIPINE BESYLATE 5 MG TABLET PO SCH (11:29)
[2020-03-08] MEDS: TRAZODONE HCL 50 MG TABLET PO SCH (21:51)
[2020-03-08] MEDS: ZOLPIDEM TARTRATE 5 MG TABLET PO PRN (21:51)
[2020-03-08] MEDS: ZOLPIDEM TARTRATE 5 MG TABLET PO SCH (21:51)
[2020-03-09] MEDS: OXYCODONE HCL IR 5 MG TABLET PO PRN ×3 (01:55→16:06)
[2020-03-09] MEDS: ACETAMINOPHEN 325 MG TABLET PO SCH ×4 (01:55→17:31)
[2020-03-09] MEDS: TOPIRAMATE 25 MG TABLET PO SCH ×2 (06:47→13:27)
[2020-03-09] MEDS: PENICILLIN POTASSIUM IV PRN ×2 (06:48)
[2020-03-09] MEDS: DULOXETINE HCL 30 MG CAPSULE.DR PO SCH ×2 (06:48→17:31)
[2020-03-09] MEDS: WATER IV PRN ×2 (06:48)
[2020-03-09] MEDS: DEXTROSE 5% IV PRN ×2 (06:48)
--- NOTE | 2020-03-09 09:37 | Progress Note ---
Provider Note Provider Note: [facility] teleconsultation. Patient not examined. Chart reviewed. Follow up HPI: The patient is a 69-year-old male with a history of chronic pain who was admitted back in December with left hip septic arthritis due to group B strep after an outpatient steroid injection in this joint approximately 1 week prior to presentation. He has severe OA. He underwent an I&D by orthopedic surgery and blood and surgical cultures were all positive for group B strep. His MRI at that time was suggestive of possible osteomyelitis and he was recommended to complete 6 weeks of ceftriaxone 2 g daily with the end of therapy being February 18, which he completed. He is now readmitted by orthopedics given persistent pain that has left him wheelchair-bound. He underwent a left hip I&D with roslyn-arthroplasty with antibiotic spacer placement on 03/06 and cultures were taken. There was gross purulence and bone was likely devitalized which is why a spacer was placed. These cultures are no growth to date. White count is normal at 6, ESR of 90, creatinine of 0.89, CRP is 79. 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 He has now had a source control procedure with a hemiarthroplasty with an antibiotic spacer placement 03/06. We will need to treat remaining bone with 6 weeks of parenteral antibiotic therapy. He does not have a true allergy to ampicillin and he has tolerated IV penicillin while hospitalized. This would be the drug of choice given minimal pressure on his GI microbiota. IV penicillin G 24,000,000 units/day as a continuous infusion can be done in the outpatient setting via an ambulatory pump. Insurance may be prohibitive but this would be the drug of choice. If insurance will not allow, then ceftriaxone 2 g IV daily would be the alternative. Weekly CBC, CMP, ESR, CRP on above IV therapy. PICC line should be removed at the end of antibiotic therapy. Thank you for involving [facility] in this patient's care. Negra Trevizo MD
[2020-03-09] MEDS: BUSPIRONE HCL 10 MG TABLET PO SCH ×2 (11:00→17:31)
[2020-03-09] MEDS: GABAPENTIN 100 MG CAPSULE PO SCH (11:00)
[2020-03-09] MEDS: CELECOXIB 200 MG CAPSULE PO SCH (11:00)
[2020-03-09] MEDS: OXYCODONE HCL SR 10 MG TABLET PO SCH (11:00)
[2020-03-09] MEDS: ASPIRIN 325 MG TABLET PO SCH (11:00)
[2020-03-09] MEDS: DOCUSATE SODIUM 100 MG CAPSULE PO SCH (11:01)
[2020-03-09] MEDS: POLYETHYLENE GLYCOL 3350 POWDER 17 GM/1 PACKET PO SCH (11:01)
[2020-03-09] MEDS: AMLODIPINE BESYLATE 5 MG TABLET PO SCH (11:02)
[2020-03-09] MEDS: CARVEDILOL 12.5 MG TABLET PO SCH (11:02)
--- NOTE | 2020-03-09 11:47 | RADIOLOGY REPORT (SQ) ---
EXAM DESCRIPTION: PICC INSERTION IMAGES COMPLETED DATE/TIME: 03/09/2020 10:28 am REASON FOR STUDY: Post operative antibiotics M16.12 UNILATERAL PRIMARY OSTEOARTHRITIS, LEFT HIP COMPARISON: None. FLUOROSCOPY TIME: 27 seconds 1 images saved to PACS. TECHNIQUE: Fluoroscopic and ultrasound guided PICC placement. LIMITATIONS: None. PROCEDURE: After written consent and assessment were obtained, the patient was brought into the fluo roscopy room and placed supine on the table. Ultrasound evaluation of potential access sites were per formed. After successfully identifying a patent left upper extremity basilic vein, the left upper arm was prepped and draped in a sterile fashion along with the ultrasound probe. The entry site was anes thetized with 1% lidocaine. A 21 gauge 7 cm needle was advanced through the skin and into the left ba silic vein under live ultrasound guidance. An ultrasound image was saved to PACS confirming access s ite. A .018 guide wire was then inserted through the needle and into the venous system. The needle w as then removed and an 11 blade scalpel was used to make a 1cm skin incision. A 5 fr peel-away sheat h was advanced over the wire and into the venous system. A measurement was then made using the existi ng wire and live fluoroscopic guidance. The wire was then removed and trimmed. The PICC was advanced through the peel-away sheath and into the venous system. The peel-away sheath was removed and the cat heter was adhered to the patients arm with a stat lock. The catheter was then aspirated and flushed a nd a sterile bandage was placed over the access site. A fluoroscopic spot image was saved to PACS co nfirming the catheter tip within the SVC. IMPRESSION: SUCCESSFUL PLACEMENT OF A 5 FR DUAL LUMEN 44 CM PICC IN THE LEFT BASILIC VEIN. COMMENT: Patient medication list reviewed: Yes- Quality ID# 130:Eligible professional attests to doc umenting in the medical record they obtained, updated, or reviewed the patient's current medications. . Quality ID 145: Final reports for procedures using fluoroscopy that document radiation exposure kelvin rhona, or exposure time and number of fluorographic images (if radiation exposure indices are not avail able) Quality ID #76: The patient was prepped and draped using maximum sterile barrier technique including cap, mask, sterile gown, sterile gloves, a large sterile sheet, hand hygiene, and 2% Chlorhexidine fo r cutaneous antisepsis. When ultrasound is used, sterile ultrasound techniques are followed requiring sterile gel and sterile probes. TECHNICAL DOCUMENTATION: JOB ID: [id number] 2010 [employer]- All Rights Reserved rev-07/11 Reading location - IP/workstation name: [email or web address]
[2020-03-09] MEDS ORDERED: NORMAL SALINE 10 ML SDV (AFTER EACH USE) IV PRN (12:00)
--- NOTE | 2020-03-09 13:05 | PDOC PROGRESS REPORT ---
Subjective Date:: 03/09/20 Subjective:: Patient is laying in bed at time of the exam. HE reports that he is having little pain and discomfort. He reports that he thinks he is able to go home. Reason For Visit: LEFT [place] HIP SEPTIC ARTHRITIS Physical Exam Vital Signs: Temp Pulse Resp BP Pulse Ox 98.1 F 84 18 104/48 L 98 03/09/20 10:56 03/09/20 10:56 03/09/20 10:56 03/09/20 10:56 03/09/20 10:56 Intake & Output 03/08/20 03/09/20 03/10/20 06:59 06:59 06:59 Intake Total 1850 2468 Output Total 950 1050 Balance 900 1418 Weight 77.4 kg 81.8 kg General appearance: PRESENT: no acute distress, cooperative Eye exam: PRESENT: PERRLA Additional comments: Left lower extremity: calves soft and non-tender, 2+ DP pulse johanna. moves feet with out pain of difficulty, wound vac is intact and working properly. Neurological exam: PRESENT: alert, awake Psychiatric exam: PRESENT: appropriate affect. ABSENT: anxious Results Laboratory Results: 03/06/20 13:27 Hip - Left Gram Stain - Final 03/06/20 13:27 Hip - Left Gram Stain - Final 03/06/20 13:27 Hip - Left Gram Stain - Final 03/06/20 13:27 Hip - Left Gram Stain - Final Impressions: Chest X-Ray 03/01/20 09:57 IMPRESSION: NO ACUTE RADIOGRAPHIC FINDING IN THE CHEST. Hip X-Ray 03/06/20 00:00 IMPRESSION: Left knee hemiarthroplasty. Refer to operative note for further information. PICC Line Insertion 03/09/20 00:00 IMPRESSION: SUCCESSFUL PLACEMENT OF A 5 FR DUAL LUMEN 44 CM PICC IN THE LEFT BASILIC VEIN. Assessment & Plan - Time Time Spent with patient: Less than 15 minutes Anticipated discharge: Home - Plan Summary Plan Summary: S/P I&D hip Patient to get PICC line placed today D/c Home today Home health and PT have been established and have contacted the patient. F/U with ortho in 7-10 days
[2020-03-09 17:15] VITALS: BP 121/98
[2020-03-09] MEDS ORDERED: NORMAL SALINE 10 ML SDV (SCHEDULED) IV SCH (22:00)
--- NOTE | 2020-03-16 10:52 | PDOC DISCHARGE SUMMARY ---
Impression - Admit/DC Date/PCP Admission Date/Primary Care Provider: 03/06/20 16:15 CONNOR MISTRY PA-C Discharge Date: 03/09/20 - Discharge Diagnosis (1) Left hip septic arthritis Is this a current diagnosis for this admission?: Yes - Assessment Summary: Patient is a 69-year-old male who had [place] left hip septic osteoarthritis that I treated over 2 months ago. Following surgery he was placed on a PICC line and had IV antibiotics for 6 weeks. I prescribed him postoperative antibiotics as per the recommendations of infectious disease. I followed him in my clinic and he had appropriate wound healing however over the his course he had maintained substantially elevated ESR and CRP without other potential source. His hip pain began to worsen throughout his postoperative period. Repeat ESR CRP and after completion of IV antibiotics revealed slight elevation of inflammatory markers. 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 I discussed the patient multiple treatment options including primary left hip arthroplasty versus placing an antibiotic spacer in order to ensure that the infection is cleared prior to placing final implants. We proceeded with a left hip Prostalac cement hemiarthroplasty spacer. This was performed on 03/06/2019. Patient tolerated the procedure well. Multiple cultures were sent and all re turned negative. Based on prior cultures which grew group be strep, the patient was placed on penicillin G per the recommendations of infectious disease. He was given a PICC line while in house and discharged on 6 weeks of IV antibiotics. He was stable for discharge home on postoperative day #2. He did well with physical therapy while in house and was able to ambulate functionally with a walker. Pain was well controlled and improved postoperatively as compared to immediately prior to surgery. The patient had a negative pressure incisional wound VAC placed at the time of surgery which she was discharged home with. He had no acute events or complications over the course of his stay. 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 He is prone to delirium and did have an episode while in-house including ambulating against the recommendation of his nursing staff and walking into the hallway without clothes on. Aside from that he had no other acute events. Vital signs and labs otherwise been stable. On 03/09/2019 when he was discharged home. Additionally the patient has a allergy to ampicillin so we provided him with a dose of penicillin G postoperatively in a controlled setting and monitored him for any reaction. He tolerated the penicillin G well and so this was the medication we prescribed for his home infusion therapy. - Additional Information Resuscitation Status: Full Code Discharge Diet: As Tolerated Discharge Activity: Activity As Tolerated, Keep Legs Elevated, No tub bath, Walk Frequently Referrals: KORY CRESPO JR, DO [ACTIVE PROVISIONAL STAFF] - 03/15/20 10:20 am Prescriptions: Celecoxib [Celebrex 200 mg Capsule] 100 mg PO BID #60 capsule Penicillin G Potassium [Pfizerpen Inj 5 Million Unit Vial] 24,000,000 unit IV CONTINUOUS PRN 40 Days vial PRN Reason: Home Medications: Buspirone HCl [Buspar 10 mg Tablet] 10 mg PO BID 01/07/20 Dextromethorphan HBr/Quinidine [Nuedexta 20-10 mg Capsule] 1 cap PO DAILY 12/25 05/13 Duloxetine HCl [Cymbalta] 60 mg PO BID 01/07/20 Oxycodone HCl [Oxycontin] 20 mg PO Q12 01/07/20 Topiramate [Topamax 25 mg Tablet] 25 mg PO Q8 01/07/20 Trazodone HCl [Desyrel 50 mg Tablet] 50 mg PO QHS 01/07/20 Zolpidem Tartrate [Ambien 5 mg Tablet] 5 mg PO QHS 01/07/20 Acetaminophen [Tylenol 325 mg Tablet] 650 mg PO Q4HP PRN tablet 01/11/20 Amlodipine Besylate [Norvasc 5 mg Tablet] 5 mg PO DAILY #30 tablet 01/11/20 Carvedilol [Coreg 12.5 mg Tablet] 12.5 mg PO DAILY #30 tablet 01/11/20 Docusate Sodium [Colace 100 mg Capsule] 100 mg PO DAILY capsule 01/11/20 Naloxone HCl [Narcan] 4 mg NS ONCEP PRN #1 spray 01/11/20 Brexpiprazole [Rexulti] 0.25 mg PO PRN PRN 03/06/20 Acetaminophen [Tylenol 325 mg Tablet] 975 mg PO Q6 tablet 03/09/20 Aspirin [Aspirin 325 mg Tablet] 325 mg PO DAILY tablet 03/09/20 Celecoxib [Celebrex 200 mg Capsule] 100 mg PO BID #60 capsule 03/09/20 Diphenhydramine HCl [Benadryl 25 mg Capsule] 25 mg PO Q6HP PRN capsule 03/09/20 Docusate Sodium [Colace 100 mg Capsule] 100 mg PO TIDP PRN capsule 03/09/20 Gabapentin [Neurontin 100 mg Capsule] 100 mg PO Q12 capsule 03/09/20 Penicillin G Potassium [Pfizerpen Inj 5 Million Unit Vial] 24,000,000 unit IV CONTINUOUS PRN 40 Days vial 03/09/20 History of Present Illiness History of Present Illness: AUGUST CORBIN is a 69 year old male Physical Exam Vital Signs: Temp Pulse Resp BP Pulse Ox 98.1 F 70 14 121/98 H 100 03/09/20 16:09 03/09/20 16:14 03/09/20 16:14 03/09/20 16:14 03/09/20 16:14 Results Laboratory Results: COVID-19 Source See comment 03/02/20 10:37 COVID-19 ([facility]) Not Detected (Not Detect) 03/02/20 10:37 Blood Type O POSITIVE 03/06/20 11:32 Antibody Screen NEGATIVE 03/06/20 11:32 Impressions: Chest X-Ray 03/01/20 09:57 IMPRESSION: NO ACUTE RADIOGRAPHIC FINDING IN THE CHEST. Hip X-Ray 03/06/20 00:00 IMPRESSION: Left knee hemiarthroplasty. Refer to operative note for further information. PICC Line Insertion 03/09/20 00:00 IMPRESSION: SUCCESSFUL PLACEMENT OF A 5 FR DUAL LUMEN 44 CM PICC IN THE LEFT BASILIC VEIN. Stroke Is this a Stroke Patient?: No Acute Heart Failure Is this a Heart Failure Patient?: No
== END 2020-03-09 17:51 | disposition home or self-care (01) | DRG 470 ==
LOC: OROUT 10:25 → EDSTATUS 12:30 → 4S 16:15
PROVIDERS: ADMIT Orthopaedic Surgery; ATTEND Orthopaedic Surgery
PROC: 0SRB0EZ Replacement of Left Hip Joint with Articulating Spacer, Open Approach (ICD-10-PCS; 2020-03-06)
PROC: 0SRS0J9 Replacement of Left Hip Joint, Femoral Surface with Synthetic Substitute, Cemented, Open Approach (ICD-10-PCS; principal; 2020-03-06 12:30)
PROC: 02HV33Z Insertion of Infusion Device into Superior Vena Cava, Percutaneous Approach (ICD-10-PCS; 2020-03-09)
DX: M00.9 Pyogenic arthritis, unspecified (principal); M25.562 Pain in left knee; Z20.828 Contact with and (suspected) exposure to other viral communicable diseases; G89.29 Other chronic pain; M54.9 Dorsalgia, unspecified; M19.90 Unspecified osteoarthritis, unspecified site; Z79.82 Long term (current) use of aspirin; Z79.899 Other long term (current) drug therapy
CPT/HCPCS: 01214; 36415; 36573; 71046; 86850; 86900; 86901; 87070; 87075; 87205; 87635; 88304; 88311; C9803; J0171; J0690; J1200; J1642; J1885; J2250; J2270; J2405; J2540; J2704; J3010; J3370; J3490; J7030; J7060

== ENCOUNTER 2020-03-10 10:41 | Emergency (ER) | payer MEDICARE, OTHER ==
--- NOTE | 2020-03-10 12:40 | ER Document Report ---
ED Medical Screen (RME) - General Chief Complaint: Other Stated Complaint: PROBLEM WITH PICC LINE Time Seen by Provider: 03/10/20 12:38 Primary Care Provider: CONNOR MISTRY PA-C [Primary Care Provider] - Follow up as needed Notes: HPI: 69-year-old male discharged from the hospital yesterday after being treated for septic arthritis was to go home with a PICC line and had been inserted yesterday but apparently pulled it out last night now wants the PICC line replaced so he can get antibiotics at home. States it was accidentally pulled out. PHYSICAL EXAMINATION: Limited assessment in triage as patient is fully dressed but is requesting PICC line replacement. On review of the records he did have a PICC line placed yesterday apparently in the left basilic vein I have greeted and performed a rapid initial assessment of this patient. A comprehensive ED assessment and evaluation of the patient, analysis of test results and completion of medical decision making process will be conducted by an additional ED providers. Please note that clinical decision making for this patient was made during the 2019 pandemic of novel coronavirus which caused a significant strain on the healthcare system including at this particular facility. Criteria for admission discharge and level of care decisions as well as treatment decisions have necessarily changed TRAVEL OUTSIDE OF THE [place] IN LAST 30 DAYS: No - Related Data Allergies/Adverse Reactions: ampicillin Allergy (Mild, Verified 03/07/20 18:35) Past Medical History - Past Medical History Cardiac Medical History: Denies: Hx Coronary Artery Disease, Hx Heart Attack, Hx Hypertension Pulmonary Medical History: Denies: Hx Asthma, Hx Bronchitis, Hx COPD, Hx Pneumonia Neurological Medical History: Denies: Hx Cerebrovascular Accident, Hx Seizures Musculoskeltal Medical History: Reports Hx Arthritis Psychiatric Medical History: Reports: Hx Depression Past Surgical History: Reports: Hx Cholecystectomy, Hx Orthopedic Surgery - back, knee, and shoulder - Immunizations Hx Diphtheria, Pertussis, Tetanus Vaccination: Yes Physical Exam - Vital signs Vitals: Temp Pulse Resp BP Pulse Ox 98.1 F 103 H 18 117/69 100 03/10/20 10:56 03/10/20 10:56 03/10/20 10:56 03/10/20 10:56 03/10/20 10:56 Course - Vital Signs Vital signs: Temp Pulse Resp BP Pulse Ox 98.1 F 103 H 18 117/69 100 03/10/20 10:56 03/10/20 10:56 03/10/20 10:56 03/10/20 10:56 03/10/20 10:56 Doctor's Discharge - Discharge Referrals: CONNOR MISTRY PA-C [Primary Care Provider] - Follow up as needed
--- NOTE | 2020-03-10 15:40 | RADIOLOGY REPORT (SQ) ---
EXAM DESCRIPTION: PICC INSERTION IMAGES COMPLETED DATE/TIME: 03/10/2020 3:00 pm REASON FOR STUDY: pulled out picc line placed yesterday COMPARISON: None. FLUOROSCOPY TIME: 18 seconds 1 images saved to PACS. TECHNIQUE: Fluoroscopic and ultrasound guided PICC placement. LIMITATIONS: None. PROCEDURE: After written consent and assessment were obtained, the patient was brought into the fluo roscopy room and placed supine on the table. Ultrasound evaluation of potential access sites were per formed. After successfully identifying a patent left upper extremity basilic vein, the left upper arm was prepped and draped in a sterile fashion along with the ultrasound probe. The entry site was anes thetized with 1% lidocaine. A 21 gauge 7 cm needle was advanced through the skin and into the left ba silic vein under live ultrasound guidance. An ultrasound image was saved to PACS confirming access s ite. A .018 guide wire was then inserted through the needle and into the venous system. The needle w as then removed and an 11 blade scalpel was used to make a 1cm skin incision. A 5 fr peel-away sheat h was advanced over the wire and into the venous system. A measurement was then made using the existi ng wire and live fluoroscopic guidance. The wire was then removed and trimmed. The PICC was advanced through the peel-away sheath and into the venous system. The peel-away sheath was removed and the cat heter was adhered to the patients arm with a stat lock. The catheter was then aspirated and flushed a nd a sterile bandage was placed over the access site. A fluoroscopic spot image was saved to PACS co nfirming the catheter tip within the SVC. IMPRESSION: SUCCESSFUL PLACEMENT OF A 5 FR DUAL LUMEN 44 CM PICC IN THE LEFT BASILIC VEIN. COMMENT: Patient medication list reviewed: Yes- Quality ID# 130:Eligible professional attests to doc umenting in the medical record they obtained, updated, or reviewed the patient's current medications. . Quality ID 145: Final reports for procedures using fluoroscopy that document radiation exposure kelvin rhona, or exposure time and number of fluorographic images (if radiation exposure indices are not avail able) Quality ID #76: The patient was prepped and draped using maximum sterile barrier technique including cap, mask, sterile gown, sterile gloves, a large sterile sheet, hand hygiene, and 2% Chlorhexidine fo r cutaneous antisepsis. When ultrasound is used, sterile ultrasound techniques are followed requiring sterile gel and sterile probes. TECHNICAL DOCUMENTATION: JOB ID: [id number] 2010 [employer]- All Rights Reserved rev-07/11 Reading location - IP/workstation name: [email or web address]
[2020-03-10] MEDS ORDERED: NORMAL SALINE INJ/PF 0.9% 10 ML SDV IV PRN (17:04)
--- NOTE | 2020-03-10 18:14 | ER Document Report ---
ED General - General Chief Complaint: Other Stated Complaint: PROBLEM WITH PICC LINE Time Seen by Provider: 03/10/20 12:38 Primary Care Provider: CONNOR MISTRY PA-C [Primary Care Provider] - Follow up as needed TRAVEL OUTSIDE OF THE [place] IN LAST 30 DAYS: No - HPI Notes: Patient is a 69-year-old male who presents to the emergency department for evaluation. He was recently discharged from the hospital. He has a wound VAC in place over a left upper thigh/hip wound. He was to receive penicillin through a PICC line. Unfortunately, before he could receive his first dose of IV V penicillin, the PICC line was accidentally disrupted. No significant blood loss was noted. The patient denies any complaints. At the time I saw him, the patient is already had his PICC line reinserted, his wound VAC reattached, and is anxious for discharge. He denies any acute complaints. - Related Data Allergies/Adverse Reactions: ampicillin Allergy (Mild, Verified 03/07/20 18:35) Past Medical History - General Information source: Patient, [facility] Records - Social History Smoking Status: Unknown if Ever Smoked Family History: Reviewed & Not Pertinent - Past Medical History Cardiac Medical History: Denies: Hx Coronary Artery Disease, Hx Heart Attack, Hx Hypertension Pulmonary Medical History: Denies: Hx Asthma, Hx Bronchitis, Hx COPD, Hx Pneumonia Neurological Medical History: Reports: Other - History of meningitis after back surgery. Denies: Hx Cerebrovascular Accident, Hx Seizures Musculoskeletal Medical History: Reports Hx Arthritis Psychiatric Medical History: Reports: Hx Depression Past Surgical History: Reports: Hx Cholecystectomy, Hx Orthopedic Surgery - back, knee, hip and shoulder - Immunizations Hx Diphtheria, Pertussis, Tetanus Vaccination: Yes Review of Systems - Review of Systems Constitutional: No symptoms reported EENT: No symptoms reported Cardiovascular: No symptoms reported Respiratory: No symptoms reported Gastrointestinal: No symptoms reported Genitourinary: No symptoms reported Musculoskeletal: No symptoms reported Skin: See HPI Neurological/Psychological: No symptoms reported Physical Exam - Vital signs Vitals: Temp Pulse Resp BP Pulse Ox 98.1 F 103 H 18 117/69 100 03/10/20 10:56 03/10/20 10:56 03/10/20 10:56 03/10/20 10:56 03/10/20 10:56 - Notes Notes: This is a very pleasant 69-year-old male who appears his stated age in no acute distress. Head is normocephalic and atraumatic. Oral mucosa is moist. Heart is regular in rhythm, lungs are clear to auscultation bilaterally. PICC line is in place over the left upper extremity. Wound VAC is in place on the left proximal thigh. Bandages in place, no surrounding bleeding, induration, erythema is noted. Course - Re-evaluation Re-evalutation: 03/10/20 18:13 Patient presents to the emergency department for evaluation. He has a known chronic wound with group B beta strep growing. He is on penicillin. His PICC line was appropriately placed here and the patient tolerated this well. I did order nursing here to mixing and dispensing supervisor the pump for the continuous penicillin infusion. This will be done prior to discharge. Otherwise he has no acute complaints and concerns is to continue follow-up as an outpatient. He is to return to the ED with worsening. 03/10/20 18:37 I was notified by nursing that unfortunately the only tubing that they had for the portable pump had been damaged when he ripped out his PICC line earlier. The home health nurse will have to start the infusion tomorrow morning. - Vital Signs Vital signs: Temp Pulse Resp BP Pulse Ox 98.1 F 79 18 131/59 H 100 03/10/20 16:10 03/10/20 16:10 03/10/20 16:10 03/10/20 16:10 03/10/20 16:10 - Laboratory Results Critical Laboratory Results Reviewed: No Critical Results - Radiology Results Critical Radiology Results Reviewed: No Critical Results Discharge - Discharge Clinical Impression: S/P PICC central line placement Condition: Stable Disposition: HOME, SELF-CARE Additional Instructions: Your PICC line was replaced here today. Please continue to care for it as previously instructed. Home health will continue antibiotic administration as previously ordered. If you develop worsening or new concerning symptoms of any sort, please return immediately to the emergency department for evaluation. Referrals: CONNOR MISTRY PA-C [Primary Care Provider] - Follow up as needed
[2020-03-10 18:43] VITALS: BP 120/59
== END 2020-03-10 18:36 | disposition home or self-care (01) ==
LOC: ER 10:41
DX: Z45.2 Encounter for adjustment and management of vascular access device (principal); A49.1 Streptococcal infection, unspecified site; Z88.0 Allergy status to penicillin
CPT/HCPCS: 99285; 36573; J1642

== ENCOUNTER → 2020-03-15 | Outpatient (CLI) | payer MEDICARE, OTHER ==
[2020-03-15 13:57] LABS: ABSOLUTE EOSINOPHILS # (AUTO) 0.2 10^3/uL (0.0-0.6); ABSOLUTE LYMPHOCYTES (AUTO) 1.5 10^3/uL (0.5-4.7); ABSOLUTE MONOCYTES (AUTO) 0.3 10^3/uL (0.1-1.4); ABSOLUTE NEUT (AUTO) 3.1 10^3/uL (1.7-8.2); BASOPHILS % (AUTO) 0.5 % (0-2); EOSINOPHILS % (AUTO) 4.1 % (0-6); HEMATOCRIT 27.1 % (37.9-51.0); LYMPHOCYTES % (AUTO) 29.3 % (13-45); MEAN CORPUSCULAR HEMOGLOBIN 28.1 pg (27.0-33.4); MEAN CORPUSCULAR HGB CONC 33.2 g/dL (32.0-36.0); MEAN CORPUSCULAR VOLUME 85 fl (80-97); MONOCYTES % (AUTO) 6.6 % (3-13); PLATELET COUNT 496 10^3/uL (150-450); RED CELL DISTRIBUTION WIDTH 17.9 % (11.5-14.0); SEGMENTED NEUTROPHILS % (AUTO) 59.5 % (42-78); TOTAL CELLS COUNTED % (AUTO) 100 %; WHITE BLOOD COUNT 5.3 10^3/uL (4.0-10.5)
== END ==
LOC: OD 12:19
PROVIDERS: ATTEND Orthopaedic Surgery
DX: Z47.89 Encounter for other orthopedic aftercare (principal); Z96.641 Presence of right artificial hip joint
CPT/HCPCS: 36415; 85025

== ENCOUNTER 2020-03-16 13:41 | Emergency (ER) | payer MEDICARE, OTHER ==
--- NOTE | 2020-03-16 14:52 | ER Document Report ---
ED Medical Screen (RME) - General Chief Complaint: Other Stated Complaint: PROBLEM WITH PICC LINE Primary Care Provider: KORY CRESPO JR, DO [Primary Care Provider] - Follow up as needed TRAVEL OUTSIDE OF THE [place] IN LAST 30 DAYS: No - HPI Notes: 03/16/20 14:48 Rapid Medical Exam HPI: 69yo male presents w/ PICC line obstruction. gets iv antibiotics for a left hip infection and hip replacement done about 9 days ago. says RN found picc line obstructed when infusing antibiotics yesterday, only recieved half of it. called Dr Crespo's office and told him to go to the ER to have picc line evaluated. denies cp, sob, fever/chills, n/v. follow up with Dr Crespo yesterday and took bandages off and says incisions were healing well. Physical Exam: GENERAL: Well-appearing, well-nourished and in no acute distress. HEAD: Atraumatic, normocephalic. ENT: Moist mucous membranes. RESP: Respirations even and unlabored CV- Regular rate. NEURO: No focal neurological deficits. Moves all extremities spontaneously and on command. My involvement in this patients care was limited to a rapid initial assessment. A comprehensive ED assessment and evaluation of the patient, analysis of test results, treatment, and completion of the medical decision making process will be performed by other ER providers. - Related Data Allergies/Adverse Reactions: ampicillin Allergy (Mild, Verified 03/16/20 14:46) Past Medical History - Past Medical History Cardiac Medical History: Denies: Hx Coronary Artery Disease, Hx Heart Attack, Hx Hypertension Pulmonary Medical History: Denies: Hx Asthma, Hx Bronchitis, Hx COPD, Hx Pneumonia Neurological Medical History: Denies: Hx Cerebrovascular Accident, Hx Seizures Musculoskeltal Medical History: Reports Hx Arthritis Psychiatric Medical History: Reports: Hx Depression Past Surgical History: Reports: Hx Cholecystectomy, Hx Orthopedic Surgery - back, knee, hip and shoulder - Immunizations Hx Diphtheria, Pertussis, Tetanus Vaccination: Yes Physical Exam - Vital signs Vitals: Temp Pulse Resp BP Pulse Ox 98.5 F 84 18 141/77 H 100 03/16/20 14:09 03/16/20 14:09 03/16/20 14:09 03/16/20 14:09 03/16/20 14:09 Course - Vital Signs Vital signs: Temp Pulse Resp BP Pulse Ox 98.5 F 84 18 141/77 H 100 03/16/20 14:09 03/16/20 14:09 03/16/20 14:09 03/16/20 14:09 03/16/20 14:09 Doctor's Discharge - Discharge Referrals: KORY CRESPO JR, DO [Primary Care Provider] - Follow up as needed
[2020-03-16] MEDS ORDERED: ALTEPLASE INJ 2 MG VIAL (CATH CLEARANCE) IV ONE (18:12)
--- NOTE | 2020-03-16 20:27 | ER Document Report ---
Entered by FRANCESCO CALLES SCRIBE 03/16/201811 Acting as scribe for:HILARIO DONOVAN DO ED General - General Chief Complaint: Other Stated Complaint: PROBLEM WITH PICC LINE Time Seen by Provider: 03/16/20 17:57 Primary Care Provider: KORY CRESPO JR, DO [Primary Care Provider] - 03/17/20 Information source: Patient, Relative Notes: This 69 year old male patient presents to the emergency department today with complaints of his PICC line being obstructed. Patient reports a left hip replacement 9 days ago after an infection and receives antibiotics with his PICC line. states the purple/clear hub is the one they access everyday and is not working, and the red hub is used by the home health nurse once a week to check blood. states they visited Dr. Crespo yesterday and was told everything is healing well. TRAVEL OUTSIDE OF THE [place] IN LAST 30 DAYS: No - Related Data Allergies/Adverse Reactions: ampicillin Allergy (Mild, Verified 03/16/20 14:46) Home Medications: from outside pharmacy. promethazine. penicillin. defadroxil. trazodone. nystatin. ceftriazone Past Medical History - General Information source: Patient, [facility] Records - Social History Smoking Status: Unknown if Ever Smoked Chew tobacco use (# tins/day): No Frequency of alcohol use: None Drug Abuse: None Family History: Reviewed & Not Pertinent Patient has homicidal ideation: No - Past Medical History Cardiac Medical History: Denies: Hx Coronary Artery Disease, Hx Heart Attack, Hx Hypertension Pulmonary Medical History: Denies: Hx Asthma, Hx Bronchitis, Hx COPD, Hx Pneumonia Neurological Medical History: Denies: Hx Cerebrovascular Accident, Hx Seizures Musculoskeletal Medical History: Reports Hx Arthritis Psychiatric Medical History: Reports: Hx Depression Past Surgical History: Reports: Hx Cholecystectomy, Hx Orthopedic Surgery - back, knee, hip and shoulder - Immunizations Hx Diphtheria, Pertussis, Tetanus Vaccination: Yes Review of Systems - Review of Systems Constitutional: No symptoms reported EENT: No symptoms reported Cardiovascular: No symptoms reported Respiratory: No symptoms reported Gastrointestinal: No symptoms reported Genitourinary: No symptoms reported Male Genitourinary: No symptoms reported Musculoskeletal: No symptoms reported Skin: No symptoms reported Hematologic/Lymphatic: See HPI, Other - Trouble with PICC line Neurological/Psychological: No symptoms reported -: Yes All other systems reviewed and negative Physical Exam - Vital signs Vitals: Temp Pulse Resp BP Pulse Ox 98.5 F 84 18 141/77 H 100 03/16/20 14:09 03/16/20 14:09 03/16/20 14:09 03/16/20 14:09 03/16/20 14:09 - General General appearance: Alert - HEENT Head: Normocephalic, Atraumatic Eyes: Normal Pupils: PERRL - Respiratory Respiratory status: No respiratory distress Chest status: Nontender Breath sounds: Normal Chest palpation: Normal - Cardiovascular Rhythm: Regular Heart sounds: Normal auscultation Murmur: No - Abdominal Inspection: Normal Distension: No distension Bowel sounds: Normal Tenderness: Nontender - Extremities General upper extremity: Normal ROM, Other - PICC line to LUE Notes: Erythema to the left lateral thigh. Healed scar to the left hip. - Neurological Neuro grossly intact: Yes Cognition: Normal Orientation: AAOx4 [place] Coma Scale Eye Opening: Spontaneous [place] Coma Scale Verbal: Oriented [place] Coma Scale Motor: Obeys Commands Mai Coma Scale Total: 15 Speech: Normal Sensory: Normal - Psychological Associated symptoms: Normal affect, Normal mood - Skin Skin Temperature: Warm Skin Moisture: Dry Skin irregularity: Erythema Location of irregularity: Extremities - Left lateral thigh Course - Re-evaluation Re-evalutation: 03/16/20 20:22 MDM 69 year old being treated for left leg infection has a left arm PICC line in place with 2 ports. The purple hub post that is normally used to infuse a ntibiotics has stopped functioning normally. It will not flush or infuse antibiotics. Treated here with Cath brian. After 30 minutes of the activase protocol the iv flushes and appears to function normally. Discussed follow up. and pt expressed understanding. - Vital Signs Vital signs: Temp Pulse Resp BP Pulse Ox 98.3 F 57 L 16 130/66 H 100 03/16/20 20:44 03/16/20 20:44 03/16/20 20:44 03/16/20 20:44 03/16/20 20:44 - Laboratory Results Critical Laboratory Results Reviewed: No Critical Results - Radiology Results Critical Radiology Results Reviewed: No Critical Results Critical Care Note - Critical Care Note Total time excluding time spent on procedures (mins): 30 Discharge - Discharge Clinical Impression: Occluded PICC line Qualifiers: Encounter type: initial encounter Qualified Code(s): T82.898A - Other specified complication of vascular prosthetic devices, implants and grafts, initial encounter Condition: Stable Disposition: HOME, SELF-CARE Instructions: Central Line Clearing ([facility]), IV Antibiotics ([facility]) Additional Instructions: Call your doctor for follow up tomorrow. Please return here for chest pain, shortness of breath, other problems or other concerns. Referrals: KORY CRESPO JR, [Primary Care Provider] - 03/17/20 I personally performed the services described in the documentation, reviewed and edited the documentation which was dictated to the scribe in my presence, and it accurately records my words and actions.
[2020-03-16 20:45] VITALS: BP 130/66
== END 2020-03-16 20:44 | disposition home or self-care (01) ==
LOC: ER 13:41
DX: T82.898A Other specified complication of vascular prosthetic devices, implants and grafts, initial encounter (principal); Z96.642 Presence of left artificial hip joint; Z98.890 Other specified postprocedural states
CPT/HCPCS: 99283; J2997